=== PATIENT | female | born 1945 | race Caucasian/White ===

== ENCOUNTER 2023-03-04 14:15 | Outpatient (AMB) | payer MEDICARE, BC, SELFPAY ==
--- NOTE | 2023-03-04 14:27 | MHC.OFFVIS ---
Intake Vital Signs 03/04/23 14:28 Height 5 ft Weight 131 lb 2 oz BMI 25.6 BP 168/72 H Blood Pressure Location Lt brachial Position Sitting Respiration 16 Pulse 78 Pulse Source Pulse Oximeter Pulse Oximetry (%) 95 Oxygen Delivery Method Room Air Intake Visit Reasons: Neuropathy/Confirmed Allergies penicillamine Allergy (Unknown, Verified 03/04/23 14:25) hives Codeine Phosphate Allergy (Intermediate, Uncoded 03/04/23 14:25) Vomiting penicillin Allergy (Intermediate, Uncoded 03/04/23 14:25) hives HPI HPI Comments History of Present Illness Details Amanda is a very pleasant 77-year-old female who presented to the office today for evaluation management of her right lower extremity pain. Patient reports that she has been suffering with this ?nerve pain? for greater than 40 years. 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 She was also informed that there was nothing they could do to treat her injury or pain. Patient reports 10/10 pain of the right foot. She was recently started on gabapentin by her primary care doctor, dose was escalated approximately 1 week ago. She states that this does help with the nerve pain though it is still bothersome during the night. She reports recently, within the last couple of days, she has been experiencing some pain in her heel and ?in the bone ?of her right lower leg. She took diclofenac and the pain improved a little, her PCP sent a refill of this medication but pharmacy does not have it in stock. She would like this to be sent with a dose adjustment as the pharmacy said they have 50 mg tablets in stock. Patient has a chronic, nonhealing wound to medial aspect right lower leg. She has been prescribed Flagyl and Keflex without improvement of the wound. She has an appointment with vascular in 1 week and wound care in 1 week. She states recently the leg has become more swollen, red and now she has pain in the bone. In terms of muscle damage condition is described as burning, aching, stabbing, pulsing, throbbing, sharp, dull, sore, hurting, tingling. Condition is negatively impacting patient's ability to sleep normally and her perform activities of daily living. Review of Systems Const All systems reviewed & are unremarkable except as noted in HPI and below Physical Exam Vital Signs: Last Vital Signs Pulse 78 03/04/23 14:28 Resp 16 03/04/23 14:28 BP 168/72 H 03/04/23 14:28 Pulse Ox 95 03/04/23 14:28 Oxygen Delivery Method Room Air 03/04/23 14:28 BMI result Body Mass Index 25.6 General: awake, alert, oriented. Answers questions appropriately. Fully engaged in examination. HEENT: Normocephalic. Hearing intact. Cardiac: External chest normal in appearance. Respiratory: No cough, audible wheezing or stridor. Abdomen: without gross distension. MS: No obvious swelling or deformities. Able to transition from sit to stand unassisted. Ambulates with bilaterally normal heel strike and toe off Neurological: Oriented to person, place, time and situation. Thought process intact. Ambulates with cane Psychiatric: Appropriate mood and affect. Good judgment and insight. Skin Other: Wounds: wounds noted (+DP +PT pulses. +edema distal RLE. ) ulceration right lower leg with surrounding erythema Assessment & Plan Assessment & Plan (1) Non-healing wound of right lower extremity: Code(s): S81.801A - Unspecified open wound, right lower leg, initial encounter (2) Neuropathy: Code(s): G62.9 - Polyneuropathy, unspecified (3) Smoker: Code(s): F17.200 - Nicotine dependence, unspecified, uncomplicated Plan Amanda is a very pleasant 77-year-old female who presented to the office today for evaluation and management of her right lower extremity pain. Patient has been suffering with this pain for greater than 40 years, she attributed to an injury to the sciatic nerve on the right. Her symptoms are consistent with CRPS, notable for skin changes, discoloration, swelling, temperature changes, allodynia, changes to the nails on the right foot and muscle wasting. Patient has wound to medial aspect right lower leg, she was advised that interventional management of her pain cannot proceed until she has been evaluated by wound care and vascular. Wound needs to be healed before we can treat for neuropathy. CT right ankle with and without IV contrast ordered to evaluate wound as patient is now reporting pain to the bone. Diclofenac 50mg po daily as needed, do not take with any other NSAIDs All questions and concerns were answered during the visit today. Patient agrees with plan. Follow-up in the office after CT scan. Orders: Orders CT ankle RT wo/w IV con Today L08.9 - Local infection of the skin and subcutaneous tissue, unspecified, T14.8XXA - Other injury of unspecified body region, initial encounter Medications: New diclofenac sodium 50 mg PO DAILY PRN 30 tabs 3RF pain Coding Level of Care Code New Pt Level 4 (11999) Diagnoses Non-healing wound of right lower extremity S81.801A Neuropathy G62.9 Smoker F17.200
[2023-03-04 14:28] VITALS: BP 168/72; PULSE 78; RESP 16; O2SAT 95; BMI 25.6
== END 2023-03-04 15:05 | disposition home or self-care (01) ==
PROVIDERS: PCP Internal Medicine; Visit Provider Registered Nurse Emergency
DX: G62.9 Polyneuropathy, unspecified (principal); S81.801A Unspecified open wound, right lower leg, initial encounter; F17.200 Nicotine dependence, unspecified, uncomplicated
CPT/HCPCS: 99204

== ENCOUNTER → 2023-03-04 14:15 | Outpatient (BNVA) | payer MEDICARE, BC, SELFPAY | PROVIDERS: PCP Internal Medicine; Visit Provider Registered Nurse Emergency | DX: G62.9 Polyneuropathy, unspecified (principal); S81.801A Unspecified open wound, right lower leg, initial encounter; F17.200 Nicotine dependence, unspecified, uncomplicated | CPT/HCPCS: 99202 ==

== ENCOUNTER 2023-03-10 14:37 | Outpatient (AMB) | payer MEDICARE, BC, SELFPAY ==
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
== END 2023-03-10 15:38 | disposition home or self-care (01) ==
PROVIDERS: PCP Internal Medicine; Visit Provider Surgery Vascular Surgery
DX: I73.9 Peripheral vascular disease, unspecified (principal); I83.11 Varicose veins of right lower extremity with inflammation; G90.529 Complex regional pain syndrome I of unspecified lower limb
CPT/HCPCS: 99203

== ENCOUNTER → 2023-03-10 14:37 | Outpatient (BNVA) | payer MEDICARE, BC, SELFPAY | PROVIDERS: PCP Internal Medicine; Visit Provider Surgery Vascular Surgery | DX: I73.9 Peripheral vascular disease, unspecified (principal); I83.11 Varicose veins of right lower extremity with inflammation; G90.529 Complex regional pain syndrome I of unspecified lower limb | CPT/HCPCS: 99202 ==

== ENCOUNTER 2023-03-12 12:54 | Outpatient (RCR) | payer MEDICARE, BC, SELFPAY | END 2023-11-20 10:01 | disposition left against medical advice (07) | LOC: HO.WCC 12:54 | PROVIDERS: PCP Physician Assistant Medical; Visit Provider Surgery | DX: I87.331 Chronic venous hypertension (idiopathic) with ulcer and inflammation of right lower extremity (principal); L97.312 Non-pressure chronic ulcer of right ankle with fat layer exposed; L97.419 Non-pressure chronic ulcer of right heel and midfoot with unspecified severity; L97.822 Non-pressure chronic ulcer of other part of left lower leg with fat layer exposed; I70.233 Atherosclerosis of native arteries of right leg with ulceration of ankle; I70.234 Atherosclerosis of native arteries of right leg with ulceration of heel and midfoot; G90.09 Other idiopathic peripheral autonomic neuropathy; F17.210 Nicotine dependence, cigarettes, uncomplicated | CPT/HCPCS: 16020; 97602; 99212; 99213; 99215 ==

== ENCOUNTER 2023-04-22 12:45 | Outpatient (REF) | payer MEDICARE, BC, SELFPAY ==
--- NOTE | ~2023-04-22 | US_ITS ---
EXAMINATION: US VENOUS REFLUX/INSUFFICIENCY CLINICAL INFORMATION: Varicose veins of right lower extremity without inflammation. COMPARISON: Ultrasound 11/13/2016 TECHNIQUE: Right lower extremity venous insufficiency ultrasound was performed with velocity measurements. Color flow Doppler imaging was performed. FINDINGS: RIGHT SIDE: No evidence of DVT or venous reflux within the common femoral, mid femoral, or popliteal vein. GREATER SAPHENOUS VEIN: The right saphenofemoral junction measures 0.6cm. The reflux time is 0 ms. Proximal thigh measures 0.5cm. Reflux time is 0 ms. Mid thigh measures 0.4cm. Reflux time is 0 ms. Above-knee measures 0.2cm. Reflux time is 0 ms. At the knee measures 0.2cm. Reflux time is 0 ms. Below the knee measures 0.1cm. Reflux time is 0 ms. Mid calf measures 0.2cm. Reflux time is 0 ms. At the level of the ankle it measures 0.2cm. Reflux time is 0 ms. SMALL SAPHENOUS VEIN: The saphenopopliteal junction measures 0.5 cm. Reflux time is 0 ms. The upper right small saphenous vein measures 0.3 cm. Reflux time is 0 ms.. The lower small saphenous vein measures 0.3cm. Reflux time is 0 ms. 2 director insurance veins are visualized at the level of the mid and distal calf which measures 0.1 and 0.2 cm respectively. These do not demonstrate reflux. There is a 0.4 cm varicosity at the level of the distal thigh which does not demonstrate reflux. Mild soft tissue edema at the level of the midcalf. US/US venous duplex LE RT IMPRESSION: No evidence of right lower extremity venous reflux. There is a 4 mm varicosity at the level of the distal thigh without reflux.
--- NOTE | ~2023-04-22 | US_ITS ---
EXAMINATION: Noninvasive assessment of the right lower extremity with ARTERIAL DUPLEX CLINICAL INFORMATION: Peripheral vascular disease. Request to perform arterial ultrasound only, without BRENDEN, due to the patient's pain level and wound resulting in inability to tolerate a blood pressure cuff. TECHNIQUE: Duplex Doppler techniques with waveform analysis and measurement of velocities in the right common femoral, profunda femoris, superficial femoral, popliteal and tibial arteries were performed. The study was performed only at rest. COMPARISON: None FINDINGS: DIRECT DUPLEX DOPPLER FINDINGS: RIGHT LEG: Common femoral artery: 228 cm/s, phasicity: Triphasic Profunda femoris artery: 187 cm/s, phasicity: Monophasic Superficial femoral artery (proximal): 140 cm/s, phasicity: Monophasic Superficial femoral artery (mid): 234 cm/s, phasicity: Monophasic Superficial femoral artery (distal): 214 cm/s, phasicity: Monophasic. The distal superficial femoral artery is occluded just above the knee, with a large collateral supplying the proximal posterior tibial artery. Popliteal artery: 178 cm/s, phasicity: Monophasic Posterior tibial artery: 68.4 cm/s, phasicity: Monophasic Peroneal artery: Not visualized Anterior tibial artery: Not visualized The calf vessels were unable to be evaluated distally due to the patient's wound and bandaging. ANKLE-BRACHIAL INDEX: None performed due to patient's wound and bandaging. ANKLE PRESSURES: Not performed due to patient's wound and bandaging. ANKLE PVR WAVEFORMS: Not performed due to patient's wound and bandaging. A left Cárdenas cyst is present and measures 2.7 x 0.6 x 1.2 cm. US/US arterial duplex LE RT IMPRESSION: Limited evaluation of the calf and lower extremity due to patient's wound and bandaging. Within the limitations of this exam there is: 1. Occlusion of the distal left superficial femoral artery just above the knee, with a large collateral supplying the proximal posterior tibial artery. 2. At least moderate stenosis of the common femoral artery and mid superficial femoral artery. 3. Mild stenosis of the profunda artery and popliteal artery. 4. 2.7 cm left Cárdenas cyst.
== END 2023-04-22 12:46 | disposition home or self-care (01) ==
LOC: HO.US 12:45
PROVIDERS: PCP Internal Medicine; Visit Provider Surgery Vascular Surgery
DX: I83.11 Varicose veins of right lower extremity with inflammation (principal); I73.9 Peripheral vascular disease, unspecified
CPT/HCPCS: 93926; 93971

== ENCOUNTER 2023-05-04 15:15 | Outpatient (REF) | payer MEDICARE, BC, SELFPAY ==
--- NOTE | ~2023-05-04 | CT_ITS ---
EXAMINATION: CT ANKLE WITHOUT IV CONTRAST, RIGHT CLINICAL INFORMATION: Focal infection of the skin and subcutaneous tissues, unspecified. Wound infection. COMPARISON: None. TECHNIQUE: Contiguous axial CT images of the right ankle were obtained following the IV administration of 85 mL Omnipaque 350 contrast. Multi planar reformats were provided and reviewed. This CT examination was performed using dose optimization techniques as appropriate, variously including the following: *Automated exposure control *Adjustment of mA and/or kV according to patient size (this includes techniques or standardized protocols for targeted exams where dose is matched to indication/reason for exam; i.e. extremities or head) *Use of iterative reconstruction technique. DOSE: 140 mGycm. FINDINGS: Circumferential skin thickening with subcutaneous edema about the ankle. There appears to be wound dressing both medially and laterally. Findings likely indicate an acute on chronic cellulitis. No organized fluid collection or peripherally enhancing fluid collection to suggest abscess formation. No cortical erosion or periosteal reaction to suggest acute osteomyelitis. Very early osteomyelitis may be occult on CT examination. No exposed bone or wound extending to the bony cortex. No acute fracture or dislocation. The ankle mortise is maintained. Diffuse osteopenia. No concerning lytic or blastic osseous lesion. The visualized muscles and tendons are intact, however, evaluation significantly limited on CT examination. No large soft tissue mass or organized fluid collection. CT/CT ankle RT w IV con IMPRESSION: 1. Circumferential skin thickening and subcutaneous edema about the ankle with wound dressing both medially and laterally. Findings likely indicate an acute on chronic cellulitis. No organized fluid collection or peripherally enhancing fluid collection to suggest abscess formation. 2. No cortical erosion or periosteal reaction to suggest acute osteomyelitis. No exposed bone or wound extending to the bony cortex. Very early osteomyelitis may be occult on CT examination.
[2023-05-04] MEDS: iohexoL 350 MG/ML 75 ML INFUS..BTL 85 ML IV (16:10)
[2023-05-05 08:51] LABS: Creatinine POC 0.4 mg/dL (0.5-1.4); GFR POC > 60
== END 2023-05-04 15:16 | disposition home or self-care (01) ==
LOC: HO.CT 15:15
PROVIDERS: Registered Nurse Emergency; PCP Internal Medicine; Visit Provider Surgery Vascular Surgery
DX: I73.9 Peripheral vascular disease, unspecified (principal); L08.9 Local infection of the skin and subcutaneous tissue, unspecified; T14.8XXA Other injury of unspecified body region, initial encounter
CPT/HCPCS: 73701; 82565; Q9967

== ENCOUNTER 2023-05-07 11:11 | Outpatient (AMB) | payer MEDICARE, BC, SELFPAY ==
[2023-05-07 11:12] VITALS: BMI 25.6
--- NOTE | 2023-05-07 11:12 | A.OFFVIS_ITS ---
Intake Vital Signs 05/07/23 11:12 Height 5 ft Weight 131 lb BMI 25.6 Intake Visit Reasons: follow up US 04/22/23 & Arterial US 05/04/23 Intake Note: follow up ARterial US 05/04/23 and US 04/22/23 for Right LE non-healing ulcer on her ankle. States she has been going to wound care 1 x per week and changes her dressings daily. Accompanied by: Self / Same As Patient Allergies meperidine [From Demerol] Allergy (Severe, Verified 05/07/23 11:18) Confusion penicillamine Allergy (Unknown, Verified 03/10/23 14:43) hives Codeine Phosphate Allergy (Intermediate, Uncoded 03/04/23 14:25) Vomiting penicillin Allergy (Intermediate, Uncoded 03/04/23 14:25) hives HPI follow up US 04/22/23 & Arterial US 05/04/23 HPI Details Very complex and confusing 77-year-old female presents for follow-up with noninvasive arterial and venous testing. She has this chronic right lower extremity ulcer. In addition she does have a diagnosis of CRPS. She has pain attributed to this right sciatic nerve injury. She now presents for vascular evaluation. [facility] Social History (Updated 05/07/23 @ 11:21 by MORGAN Anne) Patient Tobacco Use Status: Current everyday Tobacco user Smoking Start Date: 05/07/1961 Review of Systems Const All systems reviewed & are unremarkable except as noted in HPI and below Reports no additional complaints ENT Reports Normal hearing present Card Denies chest pain, Denies chest pain at rest, Denies chest pain with activity and Denies pedal edema Resp Denies cough GI Denies abdominal pain Musc Denies abnormal gait, Denies muscle cramps and Denies radiating pain into limb Skin/Breast Denies skin ulcer and Denies wounds Neuro Reports Normal hearing present and Denies abnormal gait Psych Reports no additional complaints Physical Exam Vital Signs: BMI result Body Mass Index 25.6 Const General: cooperative, healthy appearing and comfortable Orientation/consciousness: oriented to person, oriented to place and oriented to time HEENT Head: Yes normal to inspection Neck Neck: Yes normal visual inspection Carotids: no bruits Chest Chest palpation & inspection: normal inspection of the chest Resp Effort & Inspection: normal respiratory effort and able to speak in complete sentences Auscultation: clear to auscultation bilaterally, no crackles, no rales, no rhonchi and no wheezes Cardio Other: Right side DP signal Rate: regular rate Rhythm: regular rhythm Heart sounds: S1 normal heart sound present and S2 normal heart sound present Bruits: no carotid bruits Peripheral pulses: Peripheral pulses 2+ throughout GI Inspection: Yes normal to inspection Skin Other: Right medial calf ulcer Wounds: no wounds Hair: normal Neuro General: oriented to person, oriented to place and oriented to time Cranial nerves: Yes CN's II-XII intact bilaterally and Yes Normal hearing present Cognition (Neuro): normal cognition Motor exam (neuro): 5/5 motor strength present throughout Extrem Other: venous exam: No significant superficial varicosities or spider telangiectasias, minimal edema General: No clubbing, No cyanosis and No edema Psych Appearance: grossly normal Mental Status: mental status grossly normal Speech and movement: Normal speech and movement present Results Reviewed Results Reviewed: Noninvasive arterial testing dated 04/22/2023 demonstrates monophasic flow SFA on down. Venous insufficiency testing dated 04/22/2023 demonstrates no evidence of reflux. Written report and images of both were reviewed Assessment & Plan Assessment & Plan (1) PAD (peripheral artery disease): Code(s): I73.9 - Peripheral vascular disease, unspecified Plan: She does have an element of peripheral vascular disease. The story is quite confusing in she relates a lot of issues to this nerve injury. I do believe the poor arterial flow is contributing to the nonhealing ulcer. She reports some sort of note nerve transection and states that she would not be able to tolerate such a procedure. I did inform her that her wound may not heal if we do not improve the arterial flow. She did demonstrated understanding of this. She did politely refused. I do think that if intervention is required she may require a tertiary care center due to her nerve issues. We wish her the best of luck. Thank you for allowing us to assist in her care. (2) Varicose veins of right lower extremity with inflammation: Code(s): I83.11 - Varicose veins of right lower extremity with inflammation Plan: No reflux continue conservative measures Coding Level of Care Code Est Pt Level 4 (98418) Diagnoses PAD (peripheral artery disease) I73.9 Varicose veins of right lower extremity with inflammation I83.11
== END 2023-05-07 11:30 | disposition home or self-care (01) ==
PROVIDERS: PCP Internal Medicine; Visit Provider Surgery Vascular Surgery
DX: I73.9 Peripheral vascular disease, unspecified (principal); I83.11 Varicose veins of right lower extremity with inflammation
CPT/HCPCS: 99213

== ENCOUNTER → 2023-05-07 11:11 | Outpatient (BNVA) | payer MEDICARE, BC, SELFPAY | PROVIDERS: PCP Internal Medicine; Visit Provider Surgery Vascular Surgery | DX: I73.9 Peripheral vascular disease, unspecified (principal); I83.11 Varicose veins of right lower extremity with inflammation | CPT/HCPCS: 99212 ==

== ENCOUNTER 2023-07-20 10:50 | Outpatient (REF) | payer MEDICARE, BC, SELFPAY | END 2023-07-20 10:51 | disposition home or self-care (01) | LOC: HO.CT 10:50 | PROVIDERS: PCP Physician Assistant Medical; Visit Provider Physician Assistant Medical | DX: Z13.89 Encounter for screening for other disorder (principal) ==

== ENCOUNTER 2023-09-10 13:09 | Outpatient (AMB) | payer MEDICARE, BC, SELFPAY ==
--- NOTE | 2023-09-10 13:13 | A.OFFVIS_ITS ---
Vital Signs 09/10/23 13:21 Height 5 ft Weight 120 lb 9.486 oz BMI 23.5 BP 120/58 L Blood Pressure Location Rt brachial Position Sitting Pulse 100 Pulse Source Pulse Oximeter Pulse Oximetry (%) 96 Oxygen Delivery Method Room Air Intake Visit Reasons: BL hand Pain ? OA/auto immune dz Intake Note: New pt presents today for consult, referred by PCP Fitz Espinoza Reports right leg and heel pain; has wound. Ongoing problems with leg/nerves for many years. 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 Accompanied by: Self / Same As Patient Allergies meperidine [From Demerol] Allergy (Severe, Verified 09/10/23 13:22) Confusion penicillamine Allergy (Unknown, Verified 09/10/23 13:22) hives Codeine Phosphate Allergy (Intermediate, Uncoded 09/10/23 13:22) Vomiting penicillin Allergy (Intermediate, Uncoded 09/10/23 13:22) hives Medication List - Last Reconciled 09/10/23 by Guy Tabor MD albuterol sulfate 90 mcg/actuation inhalation gabapentin 50 mg PO .3-4 times a day ibuprofen 800 mg PO TID HPI Comments Details: This is a 77-year-old female who presents for evaluation of elevated rheumatoid factor. And states that in her 30s she was having nerve damage in her right lower extremity. She was told multiple nerves were involved. She does not recall the etiology of this. Since then patient has had nerve damage in her right leg. She has learned how to walk despite nerve damage. She has numbness and weakness in the right lower extremity. She carries a diagnosis of CRPS of the right lower extremity. Patient states that last fall a cat scratched the medial aspect of her right leg, after she was having an itchy skin rash on her right leg and she developed a wound that was hard to heal. [facility] She was evaluated by vascular surgeon felt that there is likely a vascular insufficiency component to her wound. She also states that she developed an rash on her left ankle. She feels tightness of her left ankle. 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 She states that the the toes of her right foot are deforming. She has concerned about an inflammatory arthritis. Patient states that she lost 6 lb over the last year. She is unaware of any family history of an autoimmune rheumatic disease. She is unaware of any history of psoriasis, uveitis or inflammatory bowel disease. He denies any history of DVT/PE. Patient has known COPD, continues to smoke. [facility] Social History Alcohol intake: current Alcohol intake frequency: does not drink Patient Tobacco Use Status: Current everyday Tobacco user Smoking Start Date: 05/07/1961 Female Reproductive History Menstrual Total pregnancies: 4 Number of Living Children: 2 Ab spontaneous: 2 Review of Systems Const Denies fever(s), Reports weakness and Reports weight loss Musc Reports arthralgias and Reports muscle weakness Skin/Breast Reports pruritus, Reports rash, Reports skin ulcer and Reports wounds Neuro Reports weakness Physical Exam Vital Signs: Last Vital Signs Pulse 100 09/10/23 13:21 BP 120/58 L 09/10/23 13:21 Pulse Ox 96 09/10/23 13:21 Oxygen Delivery Method Room Air 09/10/23 13:21 BMI result Body Mass Index 23.5 Const General: cooperative, healthy appearing and comfortable Nutritional Appearance: average body habitus Limitations: no limitations HEENT Head: Yes normocephalic and Yes atraumatic Mouth: moist mucous membranes Resp Other: Slightly short of breath with talking Effort & Inspection: able to speak in complete sentences Auscultation: rhonchi Extrem Other: Erythema, swelling, of right foot and toes, mildly cool to touch compared to left foot Right toe deformity of right foot toes There is no active synovitis Normal nailfold capillaroscopy Results Reviewed Results Reviewed: Labs 05/2023 ESR 28 RF 23 (<14) Uric acid 4.2 ASOT 173 normal ES screen/ES/ASMA all negative Assessment & Plan Assessment & Plan (1) Rheumatoid factor positive: Code(s): R76.8 - Other specified abnormal immunological findings in serum Category: Medical Plan: This is a 77-year-old female with history of CRPS affecting the right lower extremity, history of difficult to heal wound of right leg, peripheral vascular disease who presents for evaluation of a positive rheumatoid factor. This was in the setting of polyarthralgias. On exam I do not see any swollen joints. She has evidence of CRPS affecting the right lower extremity. Will order comprehensive serology to screen for underlying autoimmune rheumatic disease. Follow-up in 4-5 weeks Plan I spent 48 minutes reviewing patient's chart, evaluating patient, ordering diagnostic workup, counseling patient and documenting in the chart Orders: Orders Complete Blood Count Auto Diff Today M25.50 - Pain in unspecified joint Immunofixation Pnl, Serum Today M25.50 - Pain in unspecified joint Protein Electrophoresis, Serum Today M25.50 - Pain in unspecified joint T Spot TB Today Z11.7 - Encounter for testing for latent tuberculosis infection ANCA Vasculitides Today I77.6 - Arteritis, unspecified Beta-2 Glycoprotein Antibody Today D68.61 - Antiphospholipid syndrome Cardiolipin Antibodies Today D68.61 - Antiphospholipid syndrome Lupus Anticoagulant Panel Today D68.61 - Antiphospholipid syndrome Comprehensive Met. Panel Today M25.50 - Pain in unspecified joint C Reactive Protein Today M25.50 - Pain in unspecified joint Erythrocyte Sedimentation Rate Today M25.50 - Pain in unspecified joint Hepatitis A,B,C Profile Today Z11.59 - Encounter for screening for other viral diseases HLA B27 Today M45.9 - Ankylosing spondylitis of unspecified sites in spine Rheumatoid Factor Today M25.50 - Pain in unspecified joint Cyclic Citrullinated Peptide Today M25.50 - Pain in unspecified joint Coding Level of Care Code New Pt Level 4 (65383) Diagnoses Rheumatoid factor positive R76.8
[2023-09-10 13:21] VITALS: BP 120/58; PULSE 100; O2SAT 96; BMI 23.5
== END 2023-09-10 13:53 | disposition home or self-care (01) ==
PROVIDERS: PCP Physician Assistant Medical; Visit Provider Student in an Organized Health Care Education/Training Program
DX: R76.8 Other specified abnormal immunological findings in serum (principal)
CPT/HCPCS: 99204

== ENCOUNTER → 2023-09-10 13:09 | Outpatient (BNVA) | payer MEDICARE, BC, SELFPAY | PROVIDERS: PCP Physician Assistant Medical; Visit Provider Student in an Organized Health Care Education/Training Program | DX: R76.8 Other specified abnormal immunological findings in serum (principal) | CPT/HCPCS: 99202 ==

== ENCOUNTER 2023-09-14 11:34 | Outpatient (REF) | payer MEDICARE, BC, SELFPAY ==
[2023-09-14 12:01] LABS: MANUAL DIFF FLAG NO
[2023-09-14 12:24] LABS: Eosinophils Absolute Auto 0.1 X10*3/uL (0.0-0.4); Eosinophils Percent Auto 2.1 % (0-4); Hematocrit 43.7 % (37.0-47.0); Hemoglobin 13.5 g/dl (12.0-16.0); Imm Gran Abs Auto 0.01 X10*3/uL (0.00-0.03); Imm Gran Pct Auto 0.3 % (0.0-0.4); Lymphocytes Absolute Auto 1.5 X10*3/uL (1.2-4.9); Lymphocytes Percent Auto 39.4 % (20-40); Mean Corpuscular HGB Conc 30.9 g/dl (31.0-35.0); Mean Corpuscular Hemoglobin 24.9 pg (27.0-33.0); Mean Corpuscular Volume 80.5 fL (80.0-98.0); Mean Platelet Volume 9.9 fL (9.4-12.3); Monocytes Absolute Auto 0.3 X10*3/uL (0.1-1.2); Monocytes Percent Auto 7.5 % (2-11); Neutrophils Absolute Auto 1.9 x10*3/uL (2.0-8.3); Neutrophils Percent Auto 49.7 % (45-73); Platelet Count 178 X10*3/uL (160-400); Red Blood Count 5.43 X10*6/uL (4.20-5.50); Red Cell Distribution Width 17.1 % (11.0-16.0); White Blood Count 3.9 X10*3/uL (4.8-10.8)
[2023-09-14 12:59] LABS: Alanine Aminotransferase 21 U/L (0-31); Albumin Level 4.3 g/dL (3.5-5.0); Alkaline Phosphatase 84 U/L (39-117); Anion Gap 11 (12-20); Aspartate Amino Transferase 17 U/L (5-31); Bilirubin Total 0.4 mg/dL (0.0-1.0); Blood Urea Nitrogen 15 mg/dL (9-16); Calcium 9.8 mg/dL (8.4-10.2); Carbon Dioxide 30 mmol/L (22-29); Chloride 102 mmol/L (96-108); Estimated Glomerular Filt Rate > 60; Glucose Random 94 mg/dL (60-115); Sodium 139 mmol/L (135-145); Total Protein 7.3 g/dL (6.5-8.0)
[2023-09-14 13:04] LABS: Erythrocyte Sedimentation Rate 7 MM/HR (0-20)
[2023-09-14 13:16] LABS: HBS Num1 0.76 mIU/mL (0-7.99); HBc Num1 0.08 S/CO (0.00-0.79); HBsAGNum1 0.23 S/CO (0.00-0.99); Hepatitis A Antibody IgM 0.17 Index (0-0.79); Hepatitis B Core Antibody Nonreactive (Nonreactive); Hepatitis B Surface Antigen Negative (Negative); ~HepC Num1 0.07 S/CO (0.00-0.79); ~Hepatitis A Antibody IgM Nonreactive (Nonreactive); ~Hepatitis B Surface Antibody NONREACTIVE (Nonreactive); ~Hepatitis C Antibody Nonreactive (Nonreactive)
[2023-09-15 19:48] LABS: Myeloperoxidase Antibody <1.0 AI; Proteinase 3 PR3 Antibodies <1.0 AI
[2023-09-15 20:23] LABS: Cardiolipin IgG Ab <2.0 GPL-U/mL; Cardiolipin IgM Ab <2.0 MPL-U/mL
[2023-09-15 22:57] LABS: Prot Elec - Albumin 4.2 g/dL (3.8-4.8); Prot Elec - Alpha1 0.4 g/dL (0.2-0.3); Prot Elec - Alpha2 0.8 g/dL (0.5-0.9); Prot Elec - Beta 1 0.5 g/dL (0.4-0.6); Prot Elec - Beta 2 0.4 g/dL (0.2-0.5); Prot Elec - Gamma 0.8 g/dL (0.8-1.7)
[2023-09-16 14:33] LABS: Cyclic Citrullinated Peptide <16 UNITS
[2023-09-16 16:42] LABS: IgA 178 mg/dL (70-320); IgG 768 mg/dL (600-1540); IgM 86 mg/dL (50-300)
[2023-09-16 16:49] LABS: HLA B27 Negative (Negative)
[2023-09-17 01:19] LABS: TS Negative Control Passed; TS Panel A 0; TS Panel B 0; TS Positive Control Passed; TSpotTB Negative (Negative)
[2023-09-20 11:49] LABS: Beta-2 Glycoprotein IgA 21.4 U/mL (<20.0); Beta-2 Glycoprotein IgG <2.0 U/mL (<20.0); Beta-2 Glycoprotein IgM <2.0 U/mL (<20.0)
[2023-09-21 20:53] LABS: PTT (LAC) Screen 39 sec (<=40)
== END 2023-09-14 11:35 | disposition home or self-care (01) ==
LOC: HO.10HDL 11:34
PROVIDERS: Visit Provider Student in an Organized Health Care Education/Training Program
DX: M25.50 Pain in unspecified joint (principal); Z11.7 Encounter for testing for latent tuberculosis infection; Z11.59 Encounter for screening for other viral diseases; M45.9 Ankylosing spondylitis of unspecified sites in spine; D68.61 Antiphospholipid syndrome; I77.6 Arteritis, unspecified; Z72.89 Other problems related to lifestyle
CPT/HCPCS: 36415; 80053; 82784; 84165; 85025; 85597; 85598; 85613; 85652; 85730; 86021; 86140; 86146; 86147; 86200; 86334; 86431; 86481; 86704; 86706; 86709; 86803; 86812; 87340

== ENCOUNTER 2023-10-26 12:27 | Outpatient (AMB) | payer MEDICARE, BC, SELFPAY ==
--- NOTE | 2023-10-26 12:38 | A.OFFVIS_ITS ---
Vital Signs 10/26/23 12:39 Height 5 ft Weight 120 lb 13.013 oz BMI 23.6 BP 122/72 Blood Pressure Location Lt brachial Position Sitting Pulse 92 Pulse Source Pulse Oximeter Pulse Oximetry (%) 96 Oxygen Delivery Method Room Air Intake Visit Reasons: +RF/CM Intake Note: Patient last seen on 09/10/23 present today for follow up and test results. Allergies meperidine [From Demerol] Allergy (Severe, Verified 10/26/23 12:40) Confusion penicillamine Allergy (Unknown, Verified 10/26/23 12:40) hives Codeine Phosphate Allergy (Intermediate, Uncoded 10/26/23 12:40) Vomiting penicillin Allergy (Intermediate, Uncoded 10/26/23 12:40) hives Medication List - Last Reconciled 10/26/23 by Guy Tabor MD albuterol sulfate 90 mcg/actuation inhalation gabapentin 50 mg PO .3-4 times a day ibuprofen 800 mg PO TID HPI Comments Details: Patient returns for follow-up after completion of her diagnostic workup. Initial history: This is a 77-year-old female who presents for evaluation of elevated rheumatoid factor. And states that in her 30s she was having nerve damage in her right lower extremity. She was told multiple nerves were involved. She does not recall the etiology of this. Since then patient has had nerve damage in her right leg. She has learned how to walk despite nerve damage. She has numbness and weakness in the right lower extremity. She carries a diagnosis of CRPS of the right lower extremity. Patient states that last fall a cat scratched the medial aspect of her right leg, after she was having an itchy skin rash on her right leg and she developed a wound that was hard to heal. [facility] She was evaluated by vascular surgeon felt that there is likely a vascular insufficiency component to her wound. She also states that she developed an rash on her left ankle. She feels tightness of her left ankle. 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 She states that the the toes of her right foot are deforming. She has concerned about an inflammatory arthritis. Patient states that she lost 6 lb over the last year. She is unaware of any family history of an autoimmune rheumatic disease. She is unaware of any history of psoriasis, uveitis or inflammatory bowel disease. He denies any history of DVT/PE. Patient has known COPD, continues to smoke. [facility] Social History Alcohol intake: current Alcohol intake frequency: does not drink Patient Tobacco Use Status: Current everyday Tobacco user Smoking Start Date: 05/07/1961 Female Reproductive History Menstrual Total pregnancies: 4 Number of Living Children: 2 Ab spontaneous: 2 Review of Systems Const Denies fever(s) and Reports weight loss Musc Reports arthralgias and Reports muscle weakness Skin/Breast Reports pruritus, Reports rash, Reports skin ulcer and Reports wounds Physical Exam Vital Signs: Last Vital Signs Pulse 92 10/26/23 12:39 BP 122/72 10/26/23 12:39 Pulse Ox 96 10/26/23 12:39 Oxygen Delivery Method Room Air 10/26/23 12:39 BMI result Body Mass Index 23.6 Const General: cooperative, healthy appearing and comfortable Nutritional Appearance: average body habitus Limitations: no limitations HEENT Head: Yes normocephalic and Yes atraumatic Mouth: moist mucous membranes Resp Other: Slightly short of breath with talking Effort & Inspection: able to speak in complete sentences Auscultation: rhonchi Extrem Other: Erythema, swelling, of right foot and toes, mildly cool to touch compared to left foot Right toe deformity of right foot toes There is no active synovitis Normal nailfold capillaroscopy Results Reviewed Results Reviewed: Labs 05/2023 ESR 28 Laboratory Tests 09/14/23 09/14/23 12:00 Unknown Rheumatoid Factor 13.0 Cycl Citrul Peptide IgG <16 Proteinase 3 (PR3) Ab <1.0 Myeloperoxidase Ab <1.0 Beta-2-GPI IgG Ab <2.0 Beta-2-GPI IgA Ab 21.4 H Beta-2-GPI IgM Ab <2.0 Anti-Cardiolipin IgG Ab <2.0 Anti-Cardiolipin IgM Ab <2.0 HLA-B27 Negative RF 23 (<14) Uric acid 4.2 ASOT 173 normal ES screen/ES/ASMA all negative Assessment & Plan Assessment & Plan (1) Rheumatoid factor positive: Code(s): R76.8 - Other specified abnormal immunological findings in serum Category: Medical Plan: This is a 77-year-old female with history of CRPS affecting the right lower extremity, history of difficult to heal wound of right leg, peripheral vascular disease who presents for evaluation of a positive rheumatoid factor. This was in the setting of polyarthralgias. On exam I do not see any active of active synovitis. Her repeat RF factor is negative as well as other serologies, she has a borderline positive beta 2 glycoprotein IgA antibody which is of unclear significance Follow-up with other providers Plan I spent 14 minutes reviewing patient's chart, evaluating patient, counseling patient and documenting in the chart Coding Level of Care Code Est Pt Level 3 (53386) Diagnoses Rheumatoid factor positive R76.8
[2023-10-26 12:39] VITALS: BP 122/72; PULSE 92; O2SAT 96; BMI 23.6
== END 2023-10-26 12:50 | disposition home or self-care (01) ==
PROVIDERS: PCP Physician Assistant Medical; Visit Provider Student in an Organized Health Care Education/Training Program
DX: R76.8 Other specified abnormal immunological findings in serum (principal)
CPT/HCPCS: 99213

== ENCOUNTER → 2023-10-26 12:27 | Outpatient (BNVA) | payer MEDICARE, BC, SELFPAY | PROVIDERS: PCP Physician Assistant Medical; Visit Provider Student in an Organized Health Care Education/Training Program | DX: R76.8 Other specified abnormal immunological findings in serum (principal) | CPT/HCPCS: 99212 ==

== ENCOUNTER 2024-04-07 15:59 | Inpatient (IN) | payer MEDICARE, BC, SELFPAY ==
--- NOTE | ~2024-04-07 | US_ITS ---
EXAMINATION: US NONINVASIVE ASSESSMENT OF THE LEFT LOWER EXTREMITY WITH ARTERIAL DUPLEX AND ANKLE BRACHIAL INDICES (ABIS) CLINICAL INFORMATION: Pain. History of peripheral arterial disease. COMPARISON: None available. TECHNIQUE: Duplex Doppler techniques with waveform analysis and measurement of velocities in the common femoral, profunda femoris, superficial femoral, popliteal and tibial arteries were performed. In addition, ankle pulse volume recordings, ankle pressure measurements and ankle brachial indices were obtained of the right lower extremity arterial system. The study was performed only at rest. FINDINGS: NONINVASIVE ASSESSMENT OF THE ARTERIES OF BILATERAL LOWER EXTREMITIES WITH ABIs: LEFT LEG: Ankle-brachial index: Not performed. BRENDEN Reference: 0.9 - 1.4 = normal - no significant arterial disease 0.7 - 0.89 = mild peripheral arterial disease 0.51 - 0.69 = moderate peripheral arterial disease 0.50 = severe peripheral arterial disease LEFT LOWER EXTREMITY DUPLEX ULTRASOUND: Common femoral artery: 83 cm/s. Biphasic waveform. Profunda femoris artery: 138 cm/s. Biphasic waveform. Superficial femoral artery (proximal): 92 cm/s. Biphasic waveform. Superficial femoral artery (mid): 140 cm/s. Biphasic waveform. Superficial femoral artery (distal): 84 cm/s. Biphasic waveform. Popliteal artery: 65 cm/s biphasic waveform. Posterior tibial artery: 27 cm/s monophasic waveform. Dorsal pedis artery: 15 cm/s. Monophasic waveform. US/US arterial duplex LE LT IMPRESSION: Severe inflow disease below the knee. Electronically signed by: Elias Mao MD 04/11/2024 08:21 AM [facility]
--- NOTE | ~2024-04-07 | US_ITS ---
CLINICAL HISTORY: pain Arterial duplex ultrasound right lower extremity Comparison: 04/22/2023 Findings: Examination is limited in that patient was unable to complete the examination with the calf distally not imaged on the current study. Continuous, pulsatile flow with monophasic waveforms from common femoral arteries through the posterior tibial and dorsalis pedis arteries. No focal stenosis, aneurysm or occlusion identified. Velocities are within normal range. IMPRESSION: No hemodynamically significant stenoses on right lower extremity arterial duplex. This document has been electronically signed by: Drew Cheung MD on 04/07/2024 18:54:00
--- NOTE | ~2024-04-07 | XR_ITS ---
CLINICAL HISTORY: wound 2 view right tibia-fibula Comparison: None Findings No fractures or dislocations. No joint effusion. No significant arthritic change. No radiopaque foreign body. There is regional arterial calcification. IMPRESSION: 1. Normal right tibia-fibula This document has been electronically signed by: Drew Cheung MD on 04/07/2024 20:13:37
--- NOTE | ~2024-04-07 | US_ITS ---
CLINICAL HISTORY: pain Venous duplex ultrasound right lower extremity Comparison: US/SR - US VENOUS DUPLEX LE RT - 04/22/2023 01:11 PM EST Findings: The visualized deep veins are fully compressible with normal Doppler color flow and spectral tracings. No popliteal cyst. IMPRESSION: 1. Negative for right lower extremity deep vein thrombosis. This document has been electronically signed by: Drew Cheung MD on 04/07/2024 18:59:50
[2024-04-07 16:37] VITALS: BP 131/98; PULSE 87; RESP 18; TEMP 36.6; O2SAT 95; BMI 23.4
--- NOTE | 2024-04-07 16:39 | ED_ITS ---
HPI - General Adult General Chief complaint: General Medical Stated complaint: ? right lower leg infection/rash Time Seen by Provider: 04/07/24 17:27 Source: patient, RN notes reviewed and old records reviewed Mode of arrival: ambulatory Limitations: no limitations History of Present Illness ED Provider: Yamel HOWELL narrative: 78-year-old female with past medical history significant for peripheral artery disease due to tobacco dependence followed by Dr. Butcher presents for evaluation of right leg pain and swelling. Patient reports that she was initially scratched by a cat about 1 year ago. She reports that her right leg has been progressively worsening with redness and pain for the last year. She reports about 1 month ago her symptoms acutely worsened with significantly more swelling, more pain and the leg is now weeping clear fluid. She saw her PCP and reports that she was given a week's worth of antibiotics which she completed and feels as though they made her symptoms worse She does follow with Dr. Butcher for peripheral arterial disease She has not had any procedures done to the right lower extremity. Denies any history of DVT or PE Related Data Home Medications ?Medication ?Instructions ?Recorded ?Confirmed albuterol sulfate 90 mcg/actuation inhalation 03/03/23 10/26/23 aerosol inhaler ibuprofen 800 mg tablet 800 mg PO TID 03/03/23 10/26/23 gabapentin 100 mg capsule 50 mg PO .3-4 times a day 09/10/23 10/26/23 Allergies Allergy/AdvReac Type Severity Reaction Status Date / Time meperidine [From Demerol] Allergy Severe Confusion Verified 04/07/24 16:40 penicillamine Allergy Unknown hives Verified 04/07/24 16:40 Codeine Phosphate Allergy Intermediate Vomiting Uncoded 10/26/23 12:40 penicillin Allergy Intermediate hives Uncoded 10/26/23 12:40 Review of Systems 2 Constitutional: Constitutional: Denies body ache(s), Denies chills, Denies fever(s) and Denies headache(s) ENT: Denies vertigo, Denies dizziness and Denies headache(s) Cardiovascular: Cardiovascular: Denies chest pain and Denies dyspnea Respiratory: Respiratory: Denies cough and Denies dyspnea Gastrointestinal: Gastrointestinal: Denies abdominal pain, Denies nausea and Denies vomiting Musculoskeletal: Musculoskeletal: Denies back pain, Denies arthralgias, Denies joint swelling and Denies limited range of motion Integumentary/Breasts: Skin/Breast: Reports erythema, Reports rash and Reports wounds Neurologic: Denies vertigo, Denies dizziness and Denies headache(s) Psychiatric: Psychiatric: Denies anxiety PMFSH Social History Social History Alcohol intake: current Alcohol intake frequency: does not drink Patient Tobacco Use Status: Current everyday Tobacco user Smoking Start Date: 05/07/1961 Smoked in Last 30 Days: Yes Advance Directives: No Advance Directives Information Provided: No Do you have a plan to hurt others: No Plan Physical Exam ED Vital Signs: Vital Signs - 24 hr 04/07/24 16:37 Temperature 97.9 F Pulse Rate 87 Respiratory Rate 18 Blood Pressure 131/98 H Pulse Oximetry 95 Oxygen Delivery Method Room Air BMI result Body Mass Index 23.4 Const General: healthy appearing, comfortable, no acute distress, alert and awake Nutritional Appearance: well nourished Orientation/consciousness: patient oriented x3 HENMT Head: Yes normocephalic and Yes atraumatic Eyes Eyelids: Yes eyelids normal Conjunctivae: conjunctivae normal Sclerae: sclerae normal Corneas: corneas normal Pupils: Equal, round and reactive pupils present EOM: EOMs intact bilaterally Neck Neck: Yes full ROM Resp Effort & Inspection: normal respiratory effort, able to speak in complete sentences and not labored Cardio Rate: regular rate Rhythm: regular rhythm Skin Other: Patient has an erythematous edematous right lower extremity from the ankle up to just below the knee. There are open wounds draining clear fluid. Neuro General: patient oriented x3 Cranial nerves: Yes Equal, round and reactive pupils present and Yes Bilaterally intact EOM present Cognition (Neuro): normal cognition Extrem Other: Moving all extremities well without any obvious deformities Course Course Course Narrative: This is a rapid medical exam performed by Mari Cruz NP: Additional HPI, ROS, PE not included below will be deferred to primary provider. Patient is a 78-year-old female with history of PAD, CRPS, smoker, nonhealing wound of right lower extremity presenting to the ED with complaint of worsening infection to right lower leg. States she was scratched by her cat around 1 year ago, did not take abx for 6-8 mos after initial scratch. Recently finished course of keflex. States infection is worsening, leaking large amounts of fluid, now has rash to her leg. Has been seen at wound center previously. Plan: labs including cultures, EKG Medications Administered Discontinued Medications Generic Name Dose Route Start Last Admin Trade Name Dung PRN Reason Stop Dose Admin Morphine Sulfate 4 mg 04/07/24 19:15 04/07/24 19:21 Morphine Sulfate 4 Mg/Ml Cartridge IVPUSH 04/07/24 19:16 4 mg ONCE ONE Administration Protocol Ondansetron HCl 4 mg 04/07/24 19:15 04/07/24 19:21 Ondansetron Hcl 4 Mg/2 Ml Vial IVPUSH 04/07/24 19:16 4 mg ONCE ONE Administration Medical Decision Making Medical Decision Making [facility] Narrative: 70-year-old female presents for evaluation of right lower extremity pain, swelling and redness. 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 I ordered labs including blood cultures, ultrasound of the artery and venous system on the right lower extremity. There is a high suspicion for a chronic cellulitis versus arterial insufficiency. Differential Diagnosis Differential Diagnoses: The differential diagnosis associated with the presentation includes Cellulitis Arterial insufficiency Ischemic limb less likely DVT Admission/Observation Consideration of admission/observation: Escalation of care including admission/observation considered Lab Data [facility] Lab Attestation statement: I reviewed the patient's lab results. No leukocytosis or anemia. Normal platelet count. No significant electrolyte abnormalities. Elevated inflammatory markers 04/07/24 17:38 04/07/24 17:38 Labs: Lab Results 04/07/24 Range/Units 17:38 WBC 9.8 (4.8-10.8) X10*3/uL RBC 5.57 H (4.20-5.50) X10*6/uL Hgb 13.8 (12.0-16.0) g/dl Hct 44.1 (37.0-47.0) % MCV 79.2 L (80.0-98.0) fL MCH 24.8 L (27.0-33.0) pg MCHC 31.3 (31.0-35.0) g/dl RDW 15.8 (11.0-16.0) % Plt Count 336 D (160-400) X10*3/uL MPV 9.1 L (9.4-12.3) fL Immature Gran % (Auto) 0.3 (0.0-0.4) % Neut % (Auto) 74.8 H (45-73) % Lymph % (Auto) 17.9 L (20-40) % Pepin % (Auto) 5.6 (2-11) % Eos % (Auto) 1.0 (0-4) % Baso % (Auto) 0.4 (0-2) % Lymph # (Auto) 1.8 (1.2-4.9) X10*3/uL Pepin # (Auto) 0.6 (0.1-1.2) X10*3/uL Eos # (Auto) 0.1 (0.0-0.4) X10*3/uL Baso # (Auto) 0.0 (0.0-0.2) X10*3/uL Abs Immat Gran (auto) 0.03 (0.00-0.03) X10*3/uL Absolute Neuts (auto) 7.3 (2.0-8.3) x10*3/uL Absolute Nucleated RBC 0.000 (0.0-0.012) X10*3/uL Nucleated RBC % (auto) 0.0 (0.0-0.2) /100WBC ESR 26 H (0-20) MM/HR PT 12.1 (10.9-12.4) SEC INR 1.0 (0.9-1.1) Sodium 139 (135-145) mmol/L Potassium 3.7 (3.3-5.1) mmol/L Chloride 105 (96-108) mmol/L Carbon Dioxide 25 (22-29) mmol/L Anion Gap 13 (12-20) BUN 23 H (9-16) mg/dL Creatinine 0.67 (0.5-1.4) mg/dL Estim Creat Clear Calc 49.6 Estimated GFR > 60 Random Glucose 96 (60-115) mg/dL Lactic Acid 1.3 (0.5-2.0) mmol/L Calcium 9.3 (8.4-10.2) mg/dL Total Bilirubin 0.3 (0.0-1.0) mg/dL AST 18 (5-31) U/L ALT 12 (0-31) U/L Alkaline Phosphatase 96 (39-117) U/L C-Reactive Protein 2.08 H (< or = 0.50) mg/dL Total Protein 7.7 (6.5-8.0) g/dL Albumin 4.0 (3.5-5.0) g/dL Hold Green Top See Note Independent Interpretation I performed an independent interpretation of an: Ultrasound Radiology Impression Discussion of test interpretation with radiology: I have reviewed the radiologist's reading. Radiologist Impression: Findings: Examination is limited in that patient was unable to complete the examination with the calf distally not imaged on the current study. Continuous, pulsatile flow with monophasic waveforms from common femoral arteries through the posterior tibial and dorsalis pedis arteries. No focal stenosis, aneurysm or occlusion identified. Velocities are within normal range. IMPRESSION: No hemodynamically significant stenoses on right lower extremity arterial duplex. This document has been electronically signed by: Drew Cheung MD on 04/07/2024 18:54:00 Findings: The visualized deep veins are fully compressible with normal Doppler color flow and spectral tracings. No popliteal cyst. IMPRESSION: 1. Negative for right lower extremity deep vein thrombosis. This document has been electronically signed by: Drew Cheung MD on 04/07/2024 18:59:50 Discharge Plan Discharge Clinical Impression: Non-healing wound of right lower extremity Patient Disposition: Still a Patient Prescriptions: No Action ibuprofen 800 mg tablet 800 mg PO TID albuterol sulfate 90 mcg/actuation HFA aerosol inhaler inhalation gabapentin 100 mg capsule 50 mg PO .3-4 times a day Print Language: Venezuelan
--- NOTE | 2024-04-07 16:43 | ECG_ITS ---
Test Reason : LEG WOUND RASH Blood Pressure : */* mmHG Vent. Rate : 91 BPM Atrial Rate : 91 BPM P-R Int : 112 ms QRS Dur : 80 ms QT Int : 336 ms P-R-T Axes : 68 70 51 degrees QTcB Int : 413 ms Normal sinus rhythm Normal ECG No previous ECGs available Referred By: Marcelle Cruz Electronically Signed By: BETSEY JAMES
--- NOTE | 2024-04-07 17:42 | PC.NURSE ---
patient brought back to Ed 21 from waiting room. patient presents with right leg swelling, redness, and weeping. patient self wrapped leg in pink fuzzy blanket with hairties. this was removed by this RN, patient in stretcher, leg positioned with pillow to comfort. patient states the leg wound started one year ago with a cat scratch which she had treatment for. patient states she saw wound care multiple times. patient states the last month the leg has gotten worse, a rash appeared, there is skin breakdown on lower leg. patient has popliteal pulse, will not tolerate RN touching foot for pedal pulse. patient toe nails show +INGOT STRIPPER. patient noted to have rash going up right leg now. #20 G IV placed in the left wrist. cultures drawn and labs drawn.
[2024-04-07 17:46] LABS: MANUAL DIFF FLAG NO
[2024-04-07 17:48] LABS: Basophils Percent Auto 0.4 % (0-2); Eosinophils Absolute Auto 0.1 X10*3/uL (0.0-0.4); Hematocrit 44.1 % (37.0-47.0); Hemoglobin 13.8 g/dl (12.0-16.0); Imm Gran Abs Auto 0.03 X10*3/uL (0.00-0.03); Imm Gran Pct Auto 0.3 % (0.0-0.4); Lymphocytes Absolute Auto 1.8 X10*3/uL (1.2-4.9); Lymphocytes Percent Auto 17.9 % (20-40); Mean Corpuscular HGB Conc 31.3 g/dl (31.0-35.0); Mean Corpuscular Hemoglobin 24.8 pg (27.0-33.0); Mean Corpuscular Volume 79.2 fL (80.0-98.0); Mean Platelet Volume 9.1 fL (9.4-12.3); Monocytes Absolute Auto 0.6 X10*3/uL (0.1-1.2); Monocytes Percent Auto 5.6 % (2-11); Neutrophils Absolute Auto 7.3 x10*3/uL (2.0-8.3); Neutrophils Percent Auto 74.8 % (45-73); Platelet Count 336 X10*3/uL (160-400); Red Blood Count 5.57 X10*6/uL (4.20-5.50); Red Cell Distribution Width 15.8 % (11.0-16.0); White Blood Count 9.8 X10*3/uL (4.8-10.8)
[2024-04-07 17:58] LABS: Prothrombin Time 12.1 SEC (10.9-12.4)
[2024-04-07 18:17] LABS: Lactic Acid 1.3 mmol/L (0.5-2.0)
[2024-04-07 18:18] LABS: Alanine Aminotransferase 12 U/L (0-31); Alkaline Phosphatase 96 U/L (39-117); Anion Gap 13 (12-20); Aspartate Amino Transferase 18 U/L (5-31); Bilirubin Total 0.3 mg/dL (0.0-1.0); Blood Urea Nitrogen 23 mg/dL (9-16); C Reactive Protein 2.08 mg/dL (< or = 0.50); Calcium 9.3 mg/dL (8.4-10.2); Carbon Dioxide 25 mmol/L (22-29); Chloride 105 mmol/L (96-108); Creatinine Clr Calc Pharmacy 49.6; Estimated Glomerular Filt Rate > 60; Glucose Random 96 mg/dL (60-115); Potassium 3.7 mmol/L (3.3-5.1); Sodium 139 mmol/L (135-145); Total Protein 7.7 g/dL (6.5-8.0)
[2024-04-07 19:03] LABS: Erythrocyte Sedimentation Rate 26 MM/HR (0-20)
[2024-04-07] MEDS: Morphine Sulfate 4 MG/ML CARTRIDGE IVPUSH (19:21)
[2024-04-07] MEDS: ondansetron HCL 4 MG/2 ML VIAL IVPUSH (19:21)
--- NOTE | 2024-04-07 19:45 | PC.NURSE ---
pt medicated with pain meds, dressing to RLE done, vaseline gauze and wet to dry dressing. pt tolerated well.
[2024-04-07 20:09] VITALS: BP 132/65; PULSE 90; RESP 20; TEMP 36.8; O2SAT 95
[2024-04-07] MEDS: cefTRIAXone sodium 1 GM VIAL IVPUSH (20:19)
[2024-04-07] MEDS: vancomycin HCL 1,250 MG in 0.9 % Sodium Chloride 250 ML 166.67 MG IV (20:19)
--- NOTE | 2024-04-07 20:21 | P.HPHOSP_ITS ---
History of Present Illness Date of Service: 04/07/24 Attending physician on admission: Aida Mandel Chief Complaint: Worsening right lower leg wound Pt is a 78-year-old female with a PMH significant for?peripheral vascular disease, CRPS of right lower extremity, and chronic right lower extremity wound who presents to the ED with?worsening right lower extremity pain, erythema, and clear discharge x1 month. Pt reports over 40 years ago she experienced nerve damage in her right lower extremity and since then has chronic numbness, tingling, weakness, and pain in right lower extremity. Proximally 1-1/2 years ago pt was scratched by her cat on the medial aspect of her right leg which then developed a wound with surrounding rash that was difficult to heal. [facility] but has not followed with them for many months. Also presented to Dr. Butcher in vascular surgery who feels for arterial flow is contributing to patient's nonhealing ulcer. However no surgical procedure has not yet been pursued as pt is unlikely to tolerate such procedure given the level of pain in her leg. A little over 1 month ago pt was prescribed antibiotics by her PCP as pain, pruritus, and erythema had increased. Despite being on oral antibiotics, symptoms worsened and patient's leg began ?pouring out? Clear liquid. Pt presents today due to ?my children forced me to . Denies fever, chills. No nausea, vomiting, abdominal pain. Denies chest pain/pressure, palpitations. No shortness a breath or difficulty breathing. Pt is an active smoker of 1-2 packs daily. In the ED pt's vitals stable and WNL. Labs were significant for mildly elevated inflammatory markers of ESR 26 and CRP 2.08, otherwise grossly unremarkable and around baseline for pt. No leukocytosis. Stable H&H. No significant electrolyte abnormalities. Renal function baseline. Lactic acid WNL. Hepatic function baseline. X-ray of right tibia and fibula negative for acute abnormalities. Right lower leg U/S venous duplex negative for DVT. Right lower extremity arterial duplex showed no hemodynamically significant stenosis. EKG demonstrated normal sinus rhythm without evidence of significant ST elevations or depressions. Pt was treated with morphine, ondansetron, ceftriaxone, and vancomycin. Pt will be admitted to the hospital for treatment and further evaluation of right lower extremity cellulitis that has failed outpatient therapy. Review of Systems 2 Review of Systems: Negative except for that which is stated in [facility] Medical History (Updated 04/07/24 @ 21:10 by DALTON Melo) Sciatica Social History Alcohol intake: current Alcohol intake frequency: does not drink Patient Tobacco Use Status: Current everyday Tobacco user Smoking Start Date: 05/07/1961 Smoked in Last 30 Days: Yes Advance Directives: No Advance Directives Information Provided: No Do you have a plan to hurt others: No Plan Meds Allergies Allergy/AdvReac Type Severity Reaction Status Date / Time meperidine [From Demerol] Allergy Severe Confusion Verified 04/07/24 16:40 penicillamine Allergy Unknown hives Verified 04/07/24 16:40 Codeine Phosphate Allergy Intermediate Vomiting Uncoded 10/26/23 12:40 penicillin Allergy Intermediate hives Uncoded 10/26/23 12:40 Active Medications: Current Medications Vancomycin HCl 1,250 mg/ (Sodium Chloride) 250 mls @ 166.667 mls/hr IV ONCE ONE Stop: 04/07/24 21:29 Last Admin: 04/07/24 20:19 Dose: 166.67 mls/hr Home Medications ?Medication ?Instructions ?Recorded ?Confirmed ?Last Taken ?Type ibuprofen 800 mg tablet 800 mg PO TID 03/03/23 10/26/23 Unknown History albuterol sulfate 90 mcg/actuation 1 - 2 puff inhalation Q6H PRN SOB 04/07/24 Unknown History aerosol inhaler gabapentin 600 mg tablet 600 mg PO TID 04/07/24 Unknown History lidocaine 5 % topical ointment topical QD-QID PRN Pain 04/07/24 Unknown History meloxicam 7.5 mg tablet 7.5 mg PO DAILY 04/07/24 Unknown History Physical Exam 2 Vital Signs and Narrative: Vital Signs: Last Vital Signs Temp 98.2 F 04/07/24 20:09 Pulse 90 04/07/24 20:09 Resp 20 04/07/24 20:09 BP 132/65 04/07/24 20:09 Pulse Ox 95 04/07/24 20:09 O2 Del Method Room Air 04/07/24 20:09 BMI result Body Mass Index 23.4 General: AOx3, no acute distress Resp: CTA bilaterally though diminished CVS: S1, S2, RRR GI: +BS, NT, no distention Skin: Warm, dry Neuro: Cranial nerves II-XII grossly intact bilaterally. Motor grossly intact bilaterally Extremities: Right lower extremity with erythema, edema, warmth, and clear discharge as pictured below Psych: Appropriate affect Results Labs 04/07/24 17:38 04/07/24 17:38 Labs: Laboratory Results - last 24 hr 04/07/24 17:38 MCV 79.2 L MCH 24.8 L MCHC 31.3 RDW 15.8 Plt Count 336 D MPV 9.1 L Immature Gran % (Auto) 0.3 Neut % (Auto) 74.8 H Lymph % (Auto) 17.9 L Prentiss % (Auto) 5.6 Eos % (Auto) 1.0 Baso % (Auto) 0.4 Lymph # (Auto) 1.8 Prentiss # (Auto) 0.6 Eos # (Auto) 0.1 Baso # (Auto) 0.0 Abs Immat Gran (auto) 0.03 Absolute Neuts (auto) 7.3 Absolute Nucleated RBC 0.000 Nucleated RBC % (auto) 0.0 ESR 26 H PT 12.1 INR 1.0 Anion Gap 13 Estim Creat Clear Calc 49.6 Estimated GFR > 60 Random Glucose 96 Lactic Acid 1.3 Calcium 9.3 Total Bilirubin 0.3 AST 18 ALT 12 Alkaline Phosphatase 96 C-Reactive Protein 2.08 H Total Protein 7.7 Albumin 4.0 Hold Green Top See Note Assessment and Plan (1) Cellulitis of right lower extremity: Status: Acute Plan Pt is a 78-year-old female with a PMH significant for?peripheral vascular disease, CRPS of right lower extremity, and chronic right lower extremity wound who presents to the ED with?worsening right lower extremity pain, erythema, and clear discharge x1 month. Pt will be admitted to the hospital for treatment and further evaluation of right lower extremity cellulitis that has failed outpatient therapy. Right lower extremity cellulitis Secondary to chronic nonhealing wound from initial CAT scratch 1-1/2 years ago Poor arterial flow likely contributory Worsening in the past month with spreading erythema, swelling, and clear drainage Prescribed course of Keflex approximately 1 month ago by PCP No sepsis: No tachycardia, tachypnea, or leukocytosis; lactic acid WNL Will treat with ceftriaxone and vancomycin, started 04/07/2024 Wound care consult Vascular surgery consult deferred as surgical intervention likely not warranted at this time Analgesics for pain management Follow cultures Complex regional pain syndrome Continue gabapentin Nicotine dependence Encouraged smoking cessation NRT Full Code Attending:?Dr. Stein DVT Prophylaxis: Lovenox Pt will require a hospitalization of at least two nights for treatment of?acute on chronic right lower extremity cellulitis. Given that pt has failed outpatient therapy and the extent of cellulitis, pt will require hospital level care for administration of IV antibiotics. Quality Stroke Does the patient have a stroke diagnosis?: No VTE Prior VTE?: No VTE Risk Level:: Medical - moderate - high VTE Device Contraindication: Treatment Not Indicated VTE Drug Contraindication: N/A - Med Ordered
--- NOTE | 2024-04-07 20:47 | PHA.PROG ---
Admission Date/Time: Indication: SKIN INFECTION Weight in k.431 kg Adjusted body weight in Kg: [place] body weight in Kg: Obesity Dosing Indication % IBW: Serum Creatinine - Last 168 Hours 04/07/24 17:38 Creatinine 0.67 Estimated CrCl and GFR - Last 168 Hours 04/07/24 17:38 Estim Creat Clear Calc 49.6 Estimated GFR > 60 Vancomycin Loading Dose: 1250 MG Current Vancomycin Dosing Regimen: 1250 MG Q24H Vancomycin Monitoring using AUC goal of 400 - 600 range with trough as surrogate marker: [id number] TROUGH=13 Date and Time for next Vancomycin Level to be drawn: 04/10/24 @1800 Pharmacist Comments on Vancomycin Plan: Vancomycin dosing will take advantage of [employer] as a clinical decision support tool that uses Bayesian modeling to calculate individual patient's pharmacokinetic parameters and forecast the patient's drug concentration time course with the target goal AUC 24 range of 400 - 600 mg/L/hr.
--- NOTE | 2024-04-07 21:04 | PHA.MEDREC ---
Pharmacy Consult ? Medication Reconciliation Pharmacy has completed the medication reconciliation, spoke to patient at bedside who confirmed all meds, said the only scheduled one is gabapentin and all others PRN, also confirmed she is not taking furosemide -said it was a short term thing .
[2024-04-07] MEDS: Gabapentin 600 MG TABLET PO (22:11)
[2024-04-07 22:34] VITALS: BP 119/51; PULSE 90; RESP 18; TEMP 37.2; O2SAT 93
--- NOTE | 2024-04-08 00:50 | PC.NURSE ---
pt medicated per mar, pt is sleeping at this time, no sign of distress.
--- NOTE | 2024-04-08 03:03 | PC.NURSE ---
pt is sleeping at this time, no sign of distress.
--- NOTE | 2024-04-08 03:59 | PC.NURSE ---
pt resting in bed eyes closed, respiration normal, unlabored.
[2024-04-08 05:18] LABS: Basophils Absolute Auto 0.1 X10*3/uL (0.0-0.2); Basophils Percent Auto 0.6 % (0-2); Eosinophils Absolute Auto 0.1 X10*3/uL (0.0-0.4); Eosinophils Percent Auto 0.9 % (0-4); Hematocrit 40.6 % (37.0-47.0); Hemoglobin 12.8 g/dl (12.0-16.0); Imm Gran Abs Auto 0.02 X10*3/uL (0.00-0.03); Imm Gran Pct Auto 0.3 % (0.0-0.4); Lymphocytes Percent Auto 25.4 % (20-40); MANUAL DIFF FLAG NO; Mean Corpuscular HGB Conc 31.5 g/dl (31.0-35.0); Mean Corpuscular Hemoglobin 24.9 pg (27.0-33.0); Mean Platelet Volume 9.1 fL (9.4-12.3); Monocytes Absolute Auto 0.5 X10*3/uL (0.1-1.2); Monocytes Percent Auto 6.7 % (2-11); Neutrophils Absolute Auto 5.1 x10*3/uL (2.0-8.3); Neutrophils Percent Auto 66.1 % (45-73); Platelet Count 323 X10*3/uL (160-400); Red Blood Count 5.14 X10*6/uL (4.20-5.50); Red Cell Distribution Width 15.3 % (11.0-16.0); White Blood Count 7.8 X10*3/uL (4.8-10.8)
[2024-04-08 05:29] LABS: Anion Gap 12 (12-20); Blood Urea Nitrogen 21 mg/dL (9-16); Calcium 9.2 mg/dL (8.4-10.2); Carbon Dioxide 25 mmol/L (22-29); Chloride 106 mmol/L (96-108); Creatinine Clr Calc Pharmacy 46.8; Estimated Glomerular Filt Rate > 60; Glucose Random 135 mg/dL (60-115); Sodium 139 mmol/L (135-145)
[2024-04-08] MEDS: 0.9 % Sodium Chloride Flush 3 ML SYRINGE IVFLUSH ×3 (05:49→23:40)
[2024-04-08] MEDS: Morphine Sulfate 2 MG/ML CARTRIDGE IVPUSH ×2 (05:50→18:45)
--- NOTE | 2024-04-08 06:11 | PC.NURSE ---
pt wound dressing changed, previous one was soaked. wound cleaned with ns, Vaseline gauze, wet to dry gauze + abd pad, applied covered with kerlix, wound consult placed
[2024-04-08] MEDS: Gabapentin 600 MG TABLET PO ×3 (08:24→20:46)
[2024-04-08] MEDS: Enoxaparin Sodium 40 MG/0.4 ML SYRINGE SUBCUT (08:25)
--- NOTE | 2024-04-08 09:30 | PC.NURSE ---
hospitalist at bedside.
--- NOTE | 2024-04-08 09:50 | PC.NURSE ---
pt is sleeping. was steady on feet with walker earlier. dressing clean and dry.
[2024-04-08 11:08] VITALS: BP 117/63; PULSE 95; RESP 18; TEMP 36.8; O2SAT 97
[2024-04-08 11:10] VITALS: BP 143/64; PULSE 82; RESP 16; TEMP 36.5; O2SAT 94
[2024-04-08 11:37] VITALS: BMI 23.2
--- NOTE | 2024-04-08 13:40 | PC.NURSE ---
Pt contract for safety. Does not want bed alarm on. Independent in the community with her ADLs.
--- NOTE | 2024-04-08 13:54 | P.PNIM_ITS ---
Subjective Subjective Date of Service: 04/08/24 Interval History: seen and evaluated this morning complaining of pain and drainage in RLE no fever or chills Review of Systems Review of Systems: Yes all other systems are reviewed and are negative Physical Exam 2 Vital Signs: Vital Signs: Last Vital Signs Temp 97.7 F 04/08/24 11:10 Pulse 82 04/08/24 11:10 Resp 16 04/08/24 11:10 BP 143/64 H 04/08/24 11:10 Pulse Ox 94 04/08/24 11:10 O2 Del Method Room Air 04/08/24 11:10 BMI result Body Mass Index 23.2 Const: Other: Constitutional : Awake, interactive, not in distress Neck : Normal inspection, Supple Cardiovascular : RRR, no JVP, no lower extremity edema Respiratory : good bilateral air entry, no crackles, wheezes or rhonchi Gastrointestinal: soft, lax, Normal bowel sounds, Non tender Skin : Warm, Dry, erythema and edema right lower extremity from the ankle up to below the knee. There are open wounds draining clear fluid mainly on the medial side Neurological : Alert & oriented x3, No focal deficit Skin: Other: Objective Data Active Medications Acetaminophen (Acetaminophen 325 Mg Tablet) 975 mg PO Q6H PRN PRN Reason: Pain, Mild 1-3,fever,headache Calcium Carbonate (Calcium Carbonate 750 Mg Tab.Chew) 750 mg PO Q4H PRN PRN Reason: Heartburn Ceftriaxone Sodium (Ceftriaxone Sodium 1 Gm Vial) 1 gm IVPUSH Q24H [facility] Enoxaparin Sodium (Enoxaparin Sodium 40 Mg/0.4 Ml Syringe) 40 mg SUBCUT Q24H [facility] Last Admin: 04/08/24 08:25 Dose: 40 mg Documented By: JANINE Gabapentin (Gabapentin 600 Mg Tablet) 600 mg PO TID [facility] Last Admin: 04/08/24 08:24 Dose: 600 mg Documented By: JANINE Vancomycin HCl 1,250 mg/ (Sodium Chloride) 250 mls @ 166.667 mls/hr IV Q24H [facility] Ibuprofen (Ibuprofen 800 Mg Tablet) 800 mg PO TID PRN PRN Reason: Pain, Moderate(Pain Scale 4-6) Magnesium Hydroxide (Milk Of Magnesia 30 Ml Oral.Susp) 30 ml PO DAILY PRN PRN Reason: Constipation Melatonin (Melatonin 3 Mg Tablet) 6 mg PO BEDTIME PRN PRN Reason: Insomnia Morphine Sulfate (Morphine Sulfate 2 Mg/Ml Cartridge) 2 mg IVPUSH Q3H PRN; Protocol PRN Reason: Pain, Severe (Pain Scale 7-10) Last Admin: 04/08/24 05:50 Dose: 2 mg Documented By: QUINTIN Pharmacy Consult (Consult Rx Vancomycin Dosing) 1 each MISCELLANE DAILY PRN PRN Reason: Consult order Sodium Chloride (0.9 % Sodium Chloride Flush 3 Ml Syringe) 3 ml IVFLUSH QSHIFT [facility] Last Admin: 04/08/24 08:47 Dose: Not Given Documented By: KIRSTEN Non-Admin Reason: Med Not Available Labs 04/08/24 05:13 04/08/24 05:13 Labs: Laboratory Results - last 24 hr 04/07/24 04/08/24 17:38 05:13 MCV 79.2 L 79.0 L MCH 24.8 L 24.9 L MCHC 31.3 31.5 RDW 15.8 15.3 Plt Count 336 D 323 MPV 9.1 L 9.1 L Immature Gran % (Auto) 0.3 0.3 Neut % (Auto) 74.8 H 66.1 Lymph % (Auto) 17.9 L 25.4 Meade % (Auto) 5.6 6.7 Eos % (Auto) 1.0 0.9 Baso % (Auto) 0.4 0.6 Lymph # (Auto) 1.8 2.0 [place]ade # (Auto) 0.6 0.5 Eos # (Auto) 0.1 0.1 Baso # (Auto) 0.0 0.1 Abs Immat Gran (auto) 0.03 0.02 Absolute Neuts (auto) 7.3 5.1 Absolute Nucleated RBC 0.000 0.000 Nucleated RBC % (auto) 0.0 0.0 ESR 26 H PT 12.1 INR 1.0 Anion Gap 13 12 Estim Creat Clear Calc 49.6 46.8 Estimated GFR > 60 > 60 Random Glucose 96 135 H Lactic Acid 1.3 Calcium 9.3 9.2 Total Bilirubin 0.3 AST 18 ALT 12 Alkaline Phosphatase 96 C-Reactive Protein 2.08 H Total Protein 7.7 Albumin 4.0 Hold Green Top See Note Assessment and Plan (1) Cellulitis of right lower extremity: Status: Acute (2) CRPS (complex regional pain syndrome), lower limb: Status: Acute (3) Chronic wound: Status: Acute Plan Pt is a 78-year-old female with a PMH significant for?peripheral vascular disease, CRPS of right lower extremity, and chronic right lower extremity wound who presents to the ED with?worsening right lower extremity pain, erythema, and clear discharge x1 month. Pt will be admitted to the hospital for treatment and further evaluation of right lower extremity cellulitis that has failed outpatient therapy. Right lower extremity cellulitis Secondary to chronic nonhealing wound w hx PAD Pending cultures Continue ceftriaxone and vancomycin, started 04/07/2024 Wound care apply RYAN wrap Arterial US not showing hemodynamically significant stenoses on right lower extremity arterial duplex. general surgery evaluation Analgesics for pain management follow Vanco trough Complex regional pain syndrome Continue gabapentin Nicotine dependence Encouraged smoking cessation NRT Full Code DVT Prophylaxis: Lovenox Pt will require a hospitalization overnight for treatment of?acute on chronic right lower extremity cellulitis. Given that pt has failed outpatient therapy and the extent of cellulitis, pt will require hospital level care for administration of IV antibiotics. Quality Stroke Does the patient have a stroke diagnosis?: No VTE Prior VTE?: No VTE Risk Level:: Medical - moderate - high VTE Device Contraindication: Treatment Not Indicated VTE Drug Contraindication: N/A - Med Ordered
--- NOTE | 2024-04-08 14:37 | P.CONGS_ITS ---
History of Present Illness Consult details Consult date: 04/08/24 Narrative: [age] year old female with chronic regional pain syndrome of the lower limbs, no neuropathy, smoker, admitted because of cellulitis of the right lower extremity She describes having this swelling, redness, and diffuse weeping of the right lower leg for over a year now. She describes pain as well on this leg. She has had dark discoloration of the left foot for that similar period of time She says that she has seen a vascular surgeon in the past and states that she did not want any procedure at that time. She was admitted because of this cellulitis. She says that the pain on the right are worse when she lays down in bed have these elevated. She therefore prefers having both feet down. Review of Systems 2 Constitutional: Constitutional: Denies chills and Denies fever(s) Cardiovascular: Cardiovascular: Denies chest pain, Denies dyspnea and Denies dyspnea on exertion Respiratory: Respiratory: Denies cough, Denies dyspnea and Denies dyspnea on exertion Gastrointestinal: Gastrointestinal: Denies hematochezia and Denies change in bowel habits Genitourinary: Genitourinary: Denies hematuria Musculoskeletal: Musculoskeletal: Denies back pain and Denies limited range of motion Neurologic: Denies focal weakness and Denies convulsions Psychiatric: Psychiatric: Denies depression and Denies mood swings PMFSH Past Medical History Medical History (Updated 04/08/24 @ 14:05 by Yves Lee MD) Sciatica Social History Social History Household Members: Children and Other Household Members Other:: 2 sons and a granddaughter Housing: Other Housing Other:: 2 Family house Do you presently have visiting nurse or other home services: No Alcohol intake: current Alcohol intake frequency: does not drink Patient Tobacco Use Status: Current everyday Tobacco user Smoking Start Date: 05/07/1961 Tobacco use type: Cigarette Cigarette Packs Per Day: 1 Cigarettes Per Day: 20.0 service: No Meds Allergies Allergy/AdvReac Type Severity Reaction Status Date / Time meperidine [From Demerol] Allergy Severe Confusion Verified 04/07/24 16:40 penicillamine Allergy Unknown hives Verified 04/07/24 16:40 Codeine Phosphate Allergy Intermediate Vomiting Uncoded 10/26/23 12:40 penicillin Allergy Intermediate hives Uncoded 10/26/23 12:40 Active Medications: Current Medications Acetaminophen (Acetaminophen 325 Mg Tablet) 975 mg PO Q6H PRN PRN Reason: Pain, Mild 1-3,fever,headache Calcium Carbonate (Calcium Carbonate 750 Mg Tab.Chew) 750 mg PO Q4H PRN PRN Reason: Heartburn Ceftriaxone Sodium (Ceftriaxone Sodium 1 Gm Vial) 1 gm IVPUSH Q24H [facility] Enoxaparin Sodium (Enoxaparin Sodium 40 Mg/0.4 Ml Syringe) 40 mg SUBCUT Q24H [facility] Last Admin: 04/08/24 08:25 Dose: 40 mg Gabapentin (Gabapentin 600 Mg Tablet) 600 mg PO TID [facility] Last Admin: 04/08/24 13:59 Dose: 600 mg Vancomycin HCl 1,250 mg/ (Sodium Chloride) 250 mls @ 166.667 mls/hr IV Q24H [facility] Ibuprofen (Ibuprofen 800 Mg Tablet) 800 mg PO TID PRN PRN Reason: Pain, Moderate(Pain Scale 4-6) Magnesium Hydroxide (Milk Of Magnesia 30 Ml Oral.Susp) 30 ml PO DAILY PRN PRN Reason: Constipation Melatonin (Melatonin 3 Mg Tablet) 6 mg PO BEDTIME PRN PRN Reason: Insomnia Morphine Sulfate (Morphine Sulfate 2 Mg/Ml Cartridge) 2 mg IVPUSH Q3H PRN; Protocol PRN Reason: Pain, Severe (Pain Scale 7-10) Last Admin: 04/08/24 05:50 Dose: 2 mg Pharmacy Consult (Consult Rx Vancomycin Dosing) 1 each MISCELLANE DAILY PRN PRN Reason: Consult order Sodium Chloride (0.9 % Sodium Chloride Flush 3 Ml Syringe) 3 ml IVFLUSH QSHIFT [facility] Last Admin: 04/08/24 14:00 Dose: 3 ml Home Medications ?Medication ?Instructions ?Recorded ?Confirmed ?Last Taken ?Type ibuprofen 800 mg tablet 800 mg PO TID PRN Pain 03/03/23 04/08/24 04/07/24 History albuterol sulfate 90 mcg/actuation 2 puff inhalation Q6H PRN SOB 04/07/24 04/08/24 04/07/24 History aerosol inhaler gabapentin 600 mg tablet 600 mg PO TID 04/07/24 04/07/24 04/07/24 14:00 History lidocaine 5 % topical ointment 1 appl topical QID PRN Pain 04/07/24 04/08/24 04/07/24 History meloxicam 7.5 mg tablet 7.5 mg PO DAILY PRN Pain 04/07/24 04/08/24 04/06/24 History Physical Exam 2 Vital Signs: Vital Signs: Last Vital Signs Temp 97.7 F 04/08/24 11:10 Pulse 82 04/08/24 11:10 Resp 16 04/08/24 11:10 BP 143/64 H 04/08/24 11:10 Pulse Ox 94 04/08/24 11:10 O2 Del Method Room Air 04/08/24 11:10 BMI result Body Mass Index 23.2 Const: Other: Answers questions well General: no acute distress Resp: Effort & Inspection: normal respiratory effort Cardio: Rate: regular rate GI: Palpation (GI): Soft to palpation, not firm and nontender Extrem: Other: Right lower extremity with diffuse marked edema, weeping especially in the aspect, diffuse redness and tenderness There is discoloration of the left foot which she says is chronic Results Labs 04/10/24 08:26 04/10/24 08:26 Labs: Abnormal lab results 04/07/24 04/08/24 Range/Units 17:38 05:13 RBC 5.57 H (4.20-5.50) X10*6/uL MCV 79.2 L 79.0 L (80.0-98.0) fL MCH 24.8 L 24.9 L (27.0-33.0) pg MPV 9.1 L 9.1 L (9.4-12.3) fL Neut % (Auto) 74.8 H (45-73) % Lymph % (Auto) 17.9 L (20-40) % ESR 26 H (0-20) MM/HR BUN 23 H 21 H (9-16) mg/dL Random Glucose 135 H (60-115) mg/dL C-Reactive Protein 2.08 H (< or = 0.50) mg/dL Short CBC 04/07/24 04/08/24 Range/Units 17:38 05:13 WBC 9.8 7.8 (4.8-10.8) X10*3/uL Hgb 13.8 12.8 (12.0-16.0) g/dl Hct 44.1 40.6 (37.0-47.0) % Plt Count 336 D 323 (160-400) X10*3/uL BMP 04/07/24 04/08/24 17:38 05:13 Sodium 139 139 Potassium 3.7 4.0 Chloride 105 106 Carbon Dioxide BUN 23 H 21 H Creatinine 0.67 0.71 Calcium 9.3 9.2 Liver Function 04/07/24 Range/Units 17:38 Total Bilirubin 0.3 (0.0-1.0) mg/dL AST 18 (5-31) U/L ALT 12 (0-31) U/L Alkaline Phosphatase 96 (39-117) U/L Albumin 4.0 (3.5-5.0) g/dL All other labs normal. Laboratory Results WBC 7.8 X10*3/uL (4.8-10.8) 04/08/24 05:13 RBC 5.14 X10*6/uL (4.20-5.50) 04/08/24 05:13 Hgb 12.8 g/dl (12.0-16.0) 04/08/24 05:13 Hct 40.6 % (37.0-47.0) 04/08/24 05:13 MCV 79.0 fL (80.0-98.0) L 04/08/24 05:13 MCH 24.9 pg (27.0-33.0) L 04/08/24 05:13 MCHC 31.5 g/dl (31.0-35.0) 04/08/24 05:13 RDW 15.3 % (11.0-16.0) 04/08/24 05:13 Plt Count 323 X10*3/uL (160-400) 04/08/24 05:13 MPV 9.1 fL (9.4-12.3) L 04/08/24 05:13 Immature Gran % (Auto) 0.3 % (0.0-0.4) 04/08/24 05:13 Neut % (Auto) 66.1 % (45-73) 04/08/24 05:13 Lymph % (Auto) 25.4 % (20-40) 04/08/24 05:13 [place] % (Auto) 6.7 % (2-11) 04/08/24 05:13 Eos % (Auto) 0.9 % (0-4) 04/08/24 05:13 Baso % (Auto) 0.6 % (0-2) 04/08/24 05:13 Lymph # (Auto) 2.0 X10*3/uL (1.2-4.9) 04/08/24 05:13 [place] # (Auto) 0.5 X10*3/uL (0.1-1.2) 04/08/24 05:13 Eos # (Auto) 0.1 X10*3/uL (0.0-0.4) 04/08/24 05:13 Baso # (Auto) 0.1 X10*3/uL (0.0-0.2) 04/08/24 05:13 Abs Immat Gran (auto) 0.02 X10*3/uL (0.00-0.03) 04/08/24 05:13 Absolute Neuts (auto) 5.1 x10*3/uL (2.0-8.3) 04/08/24 05:13 Absolute Nucleated RBC 0.000 X10*3/uL (0.0-0.012) 04/08/24 05:13 Nucleated RBC % (auto) 0.0 /100WBC (0.0-0.2) 04/08/24 05:13 ESR 26 MM/HR (0-20) H 04/07/24 17:38 PT 12.1 SEC (10.9-12.4) 04/07/24 17:38 INR 1.0 (0.9-1.1) 04/07/24 17:38 Sodium 139 mmol/L (135-145) 04/08/24 05:13 Potassium 4.0 mmol/L (3.3-5.1) 04/08/24 05:13 Chloride 106 mmol/L (96-108) 04/08/24 05:13 Carbon Dioxide 25 mmol/L (22-29) 04/08/24 05:13 Anion Gap 12 (12-20) 04/08/24 05:13 BUN 21 mg/dL (9-16) H 04/08/24 05:13 Creatinine 0.71 mg/dL (0.5-1.4) 04/08/24 05:13 Estim Creat Clear Calc 46.8 04/08/24 05:13 Estimated GFR > 60 04/08/24 05:13 Random Glucose 135 mg/dL (60-115) H 04/08/24 05:13 Lactic Acid 1.3 mmol/L (0.5-2.0) 04/07/24 17:38 Calcium 9.2 mg/dL (8.4-10.2) 04/08/24 05:13 Total Bilirubin 0.3 mg/dL (0.0-1.0) 04/07/24 17:38 AST 18 U/L (5-31) 04/07/24 17:38 ALT 12 U/L (0-31) 04/07/24 17:38 Alkaline Phosphatase 96 U/L (39-117) 04/07/24 17:38 C-Reactive Protein 2.08 mg/dL (< or = 0.50) H 04/07/24 17:38 Total Protein 7.7 g/dL (6.5-8.0) 04/07/24 17:38 Albumin 4.0 g/dL (3.5-5.0) 04/07/24 17:38 Hold Green Top See Note 04/07/24 17:38 Assessment and Plan (1) Cellulitis of right lower extremity: Status: Acute She has this chronic leg edema, diffuse weeping and redness. She has had vascular studies including venous duplex as well as arterial Dopplers which do not suggest DVT nor stenosis of the distal vessels I have changed her dressings. She needs good wound care because of her weeping. She prefers both feet to be lower on the floor even as I recommended for her to do leg elevation to help with the edema. I would recommend therefore for her to be seen by vascular surgery for opinion. She had been seen by Dr. Butcher mostly a year ago and was thought to have peripheral arterial disease. I will check on her wound periodically while she is in the hospital Procedures Date of Service Date of Service: 04/15/24
[2024-04-08 15:38] VITALS: BP 130/61; PULSE 75; RESP 20; TEMP 36.1; O2SAT 95
--- NOTE | 2024-04-08 18:44 | PC.NURSE ---
wound care done at this time per order, pt tolerated well.
[2024-04-08 19:41] VITALS: BP 136/73; PULSE 74; RESP 18; TEMP 36.5; O2SAT 94
[2024-04-08] MEDS: cefTRIAXone sodium 1 GM VIAL IVPUSH (20:46)
[2024-04-08] MEDS: vancomycin HCL 1,250 MG in 0.9 % Sodium Chloride 250 ML 166.67 MG IV (20:50)
[2024-04-09 03:50] VITALS: BP 115/73; PULSE 88; RESP 16; TEMP 36.4; O2SAT 95
[2024-04-09 04:12] VITALS: RESP 16
[2024-04-09] MEDS: Morphine Sulfate 2 MG/ML CARTRIDGE IVPUSH (04:12)
--- NOTE | 2024-04-09 05:29 | PC.NURSE ---
Notified by phlebotomy patient refusing am labs, bmp and cbc. Patient reporting she is bruising too much from lab draws. Dr. Stein made aware.
[2024-04-09 07:29] VITALS: BP 142/82; PULSE 83; RESP 14; TEMP 36.2; O2SAT 95
[2024-04-09] MEDS: Gabapentin 600 MG TABLET PO ×3 (09:15→19:22)
--- NOTE | 2024-04-09 09:32 | PC.NURSE ---
Pt very particular about what she will and will not due . Pt refused Lovenox injection pt educated on rational for use and understands uses but declined . RLE dressing changed per orders pt refused the use of an maribel bandage and to elevate RLE rational given pt states she has more pain when elevated and doesn't think she can tolerate the maribel wrap , encouraged we can try it and not put it to tight but she still refused . continue to educate pt
--- NOTE | 2024-04-09 09:55 | P.PNGS_ITS ---
Subjective Subjective Date of Service: 04/09/24 Interval history: New complaints No changes clinically Has pain on both feet Physical Exam 2 Vital Signs: Vital Signs: Last Vital Signs Temp 97.1 F 04/09/24 07:29 Pulse 83 04/09/24 07:29 Resp 14 04/09/24 07:29 BP 142/82 H 04/09/24 07:29 Pulse Ox 95 04/09/24 07:29 O2 Del Method Room Air 04/09/24 07:29 BMI result Body Mass Index 23.2 Const: General: comfortable and no acute distress Resp: Effort & Inspection: normal respiratory effort Extrem: Other: Dressings in place with, with note of weeping, edema, diffusely of the right lower leg Dark discoloration of the left foot Objective Data Active Medications Acetaminophen (Acetaminophen 325 Mg Tablet) 975 mg PO Q6H PRN PRN Reason: Pain, Mild 1-3,fever,headache Calcium Carbonate (Calcium Carbonate 750 Mg Tab.Chew) 750 mg PO Q4H PRN PRN Reason: Heartburn Ceftriaxone Sodium (Ceftriaxone Sodium 1 Gm Vial) 1 gm IVPUSH Q24H [facility] Last Admin: 04/08/24 20:46 Dose: 1 gm Documented By: RAAD Enoxaparin Sodium (Enoxaparin Sodium 40 Mg/0.4 Ml Syringe) 40 mg SUBCUT Q24H [facility] Last Admin: 04/09/24 09:15 Dose: Not Given Documented By: ZAC Non-Admin Reason: Patient Refused Gabapentin (Gabapentin 600 Mg Tablet) 600 mg PO TID [facility] Last Admin: 04/09/24 09:15 Dose: 600 mg Documented By: ZAC Vancomycin HCl 1,250 mg/ (Sodium Chloride) 250 mls @ 166.667 mls/hr IV Q24H [facility] Last Infusion: 04/08/24 22:30 Dose: Infused Documented By: RAAD Ibuprofen (Ibuprofen 800 Mg Tablet) 800 mg PO TID PRN PRN Reason: Pain, Moderate(Pain Scale 4-6) Magnesium Hydroxide (Milk Of Magnesia 30 Ml Oral.Susp) 30 ml PO DAILY PRN PRN Reason: Constipation Melatonin (Melatonin 3 Mg Tablet) 6 mg PO BEDTIME PRN PRN Reason: Insomnia Pharmacy Consult (Consult Rx Vancomycin Dosing) 1 each MISCELLANE DAILY PRN PRN Reason: Consult order Sodium Chloride (0.9 % Sodium Chloride Flush 3 Ml Syringe) 3 ml IVFLUSH QSHIFT [facility] Last Admin: 04/09/24 09:15 Dose: Not Given Documented By: ZAC Non-Admin Reason: Patient Refused Labs 04/08/24 05:13 04/08/24 05:13 Microbiology Microbiology Results: Microbiology 04/07/24 17:37 Blood Culture - Preliminary Blood - Venous No growth after 24 hours. 04/07/24 17:12 Blood Culture - Preliminary Blood - Venous No growth after 24 hours. Procedures Date of Service Date of Service: 04/09/24 Progress Note: A&P Assessment and plan (1) PAD (peripheral artery disease): Status: Acute Assessment and Plan: With note of edema, weeping of the right leg She has been previously seen by Dr. Butcher She says that she does not want any intervention for both feet Continue wound care with dressing changes daily Time Spent With Patient Time: Total time managing care of this patient today ____ minutes. Quality Stroke Does the patient have a stroke diagnosis?: No VTE Prior VTE?: No VTE Risk Level:: Medical - moderate - high VTE Device Contraindication: Treatment Not Indicated VTE Drug Contraindication: N/A - Med Ordered
--- NOTE | 2024-04-09 10:04 | P.CONGS_ITS ---
History of Present Illness Consult details Consult date: 04/09/24 Narrative: Very pleasant 70-year-old female with right lower extremity cellulitis and edema presents for vascular evaluation. She had actually seen us back in April of 2023. At that time she had arterial and venous testing done. Venous testing had actually shown to be negative. Arterial testing did demonstrate an element of peripheral vascular disease. At that time she denied any intervention and believe that it was more neurogenic in nature. She had been seen and assessed by the General surgery team and now presents to us for vascular evaluation. Review of Systems 2 Review of Systems: Yes all other systems are reviewed and are negative Constitutional: Constitutional: Reports no additional constitutional complaints ENT: Reports Normal hearing present Cardiovascular: Cardiovascular: Denies chest pain, Denies chest pain at rest, Denies chest pain with activity and Denies pedal edema Respiratory: Respiratory: Denies cough Gastrointestinal: Gastrointestinal: Denies abdominal pain Musculoskeletal: Musculoskeletal: Denies abnormal gait, Denies muscle cramps and Denies radiating pain into limb Integumentary/Breasts: Skin/Breast: Denies skin ulcer and Denies wounds Neurologic: Reports Normal hearing present and Denies abnormal gait Psychiatric: Psychiatric: Reports no additional psychiatric complaints PMF Past Medical History Medical History (Updated 04/08/24 @ 14:05 by Yves Lee MD) Sciatica Social History Social History Household Members: Children and Other Household Members Other:: 2 sons and a granddaughter Housing: Other Housing Other:: 2 Family house Do you presently have visiting nurse or other home services: No Alcohol intake: current Alcohol intake frequency: does not drink Patient Tobacco Use Status: Current everyday Tobacco user Smoking Start Date: 05/07/1961 Tobacco use type: Cigarette Cigarette Packs Per Day: 1 Cigarettes Per Day: 20.0 Meds Allergies Allergy/AdvReac Type Severity Reaction Status Date / Time meperidine [From Demerol] Allergy Severe Confusion Verified 04/07/24 16:40 penicillamine Allergy Unknown hives Verified 04/07/24 16:40 Codeine Phosphate Allergy Intermediate Vomiting Uncoded 10/26/23 12:40 penicillin Allergy Intermediate hives Uncoded 10/26/23 12:40 Active Medications: Current Medications Acetaminophen (Acetaminophen 325 Mg Tablet) 975 mg PO Q6H PRN PRN Reason: Pain, Mild 1-3,fever,headache Calcium Carbonate (Calcium Carbonate 750 Mg Tab.Chew) 750 mg PO Q4H PRN PRN Reason: Heartburn Ceftriaxone Sodium (Ceftriaxone Sodium 1 Gm Vial) 1 gm IVPUSH Q24H [facility] Last Admin: 04/08/24 20:46 Dose: 1 gm Enoxaparin Sodium (Enoxaparin Sodium 40 Mg/0.4 Ml Syringe) 40 mg SUBCUT Q24H [facility] Last Admin: 04/09/24 09:15 Dose: Not Given Gabapentin (Gabapentin 600 Mg Tablet) 600 mg PO TID [facility] Last Admin: 04/09/24 09:15 Dose: 600 mg Vancomycin HCl 1,250 mg/ (Sodium Chloride) 250 mls @ 166.667 mls/hr IV Q24H [facility] Last Infusion: 04/08/24 22:30 Dose: Infused Ibuprofen (Ibuprofen 800 Mg Tablet) 800 mg PO TID PRN PRN Reason: Pain, Moderate(Pain Scale 4-6) Magnesium Hydroxide (Milk Of Magnesia 30 Ml Oral.Susp) 30 ml PO DAILY PRN PRN Reason: Constipation Melatonin (Melatonin 3 Mg Tablet) 6 mg PO BEDTIME PRN PRN Reason: Insomnia Pharmacy Consult (Consult Rx Vancomycin Dosing) 1 each MISCELLANE DAILY PRN PRN Reason: Consult order Sodium Chloride (0.9 % Sodium Chloride Flush 3 Ml Syringe) 3 ml IVFLUSH QSHIFT [facility] Last Admin: 04/09/24 09:15 Dose: Not Given Home Medications ?Medication ?Instructions ?Recorded ?Confirmed ?Last Taken ?Type ibuprofen 800 mg tablet 800 mg PO TID PRN Pain 03/03/23 04/08/24 04/07/24 History albuterol sulfate 90 mcg/actuation 2 puff inhalation Q6H PRN SOB 04/07/24 04/08/24 04/07/24 History aerosol inhaler gabapentin 600 mg tablet 600 mg PO TID 04/07/24 04/07/24 04/07/24 14:00 History lidocaine 5 % topical ointment 1 appl topical QID PRN Pain 04/07/24 04/08/24 04/07/24 History meloxicam 7.5 mg tablet 7.5 mg PO DAILY PRN Pain 04/07/24 04/08/24 04/06/24 History Physical Exam 2 Vital Signs: Vital Signs: Last Vital Signs Temp 97.1 F 04/09/24 07:29 Pulse 83 04/09/24 07:29 Resp 14 04/09/24 07:29 BP 142/82 H 04/09/24 07:29 Pulse Ox 95 04/09/24 07:29 O2 Del Method Room Air 04/09/24 07:29 BMI result Body Mass Index 23.2 Const: General: cooperative, healthy appearing and comfortable O rientation/consciousness: oriented to person, oriented to place and oriented to time HEENT: Head: Yes normal to inspection Neck: Neck: Yes normal visual inspection Carotids: no bruits Chest: Chest palpation & inspection: normal inspection of the chest Resp: Effort & Inspection: normal respiratory effort and able to speak in complete sentences Auscultation: clear to auscultation bilaterally, no crackles, no rales, no rhonchi and no wheezes Cardio: Other: Bilateral DP signals Rate: regular rate Rhythm: regular rhythm Heart sounds: S1 normal heart sound present and S2 normal heart sound present Bruits: no carotid bruits GI: Inspection: Yes normal to inspection Skin: Wounds: no wounds Hair: normal Neuro: General: oriented to person, oriented to place and oriented to time Cranial nerves: Yes CN's II-XII intact bilaterally and Yes Normal hearing present Cognition (Neuro): normal cognition Motor exam (neuro): 5/5 motor strength present throughout Extrem: Other: Right lower extremity +2 edema with cellulitis a proximally 5 cm [id number] on down. Left lower extremity within normal limits. General: No clubbing, No cyanosis and No edema Psych: Appearance: grossly normal Mental Status: mental status grossly normal Speech and movement: Normal speech and movement present Results Labs 04/08/24 05:13 04/08/24 05:13 Labs: All other labs normal. Assessment and Plan (1) PAD (peripheral artery disease): Status: Acute Plan In short patient has an element of [place]. We do know that she has concerns of SFA disease on prior studies. She recently had a repeat arterial which does demonstrate this once again but official read is still pending. Upon extensive discussion with her she has refused any sort of intervention. She is convinced that this is all neurogenic in nature and I tried to explain that she does have an element of peripheral vascular disease. At the current time would recommend continued medical management. Antibiotics and diuretics as needed. We will follow on an as-needed basis. Thank you for allowing us to assist in her care. Procedures Date of Service Date of Service: 04/09/24
--- NOTE | 2024-04-09 11:25 | MHC.CM.PN ---
PT LIVES WITH MANY FAMILY MEMEBERS HAD NO PREVIOUS SERVIES HAS OWN RIDE HOME
[2024-04-09] MEDS: Ibuprofen 800 MG TABLET PO ×2 (13:01→19:22)
--- NOTE | 2024-04-09 14:11 | HO.PM.IMPN ---
Subjective Subjective Date of Service: 04/09/24 Interval History: seen and evaluated this morning complaining of pain and drainage in RLE no fever or chills Physical Exam Vital Signs: Vital Signs: Last Vital Signs Temp 97.1 F 04/09/24 07:29 Pulse 83 04/09/24 07:29 Resp 14 04/09/24 07:29 BP 142/82 H 04/09/24 07:29 Pulse Ox 95 04/09/24 07:29 O2 Del Method Room Air 04/09/24 07:29 BMI result Body Mass Index 23.2 Const: Other: Constitutional : Awake, interactive, not in distress Neck : Normal inspection, Supple Cardiovascular : RRR, no JVP, no lower extremity edema Respiratory : good bilateral air entry, no crackles, wheezes or rhonchi Gastrointestinal: soft, lax, Normal bowel sounds, Non tender Skin : Warm, Dry, erythema and edema right lower extremity from the ankle up to below the knee. There are open wounds draining clear fluid mainly on the medial side Neurological : Alert & oriented x3, No focal deficit Objective Data Active Medications Acetaminophen (Acetaminophen 325 Mg Tablet) 975 mg PO Q6H PRN PRN Reason: Pain, Mild 1-3,fever,headache Calcium Carbonate (Calcium Carbonate 750 Mg Tab.Chew) 750 mg PO Q4H PRN PRN Reason: Heartburn Ceftriaxone Sodium (Ceftriaxone Sodium 1 Gm Vial) 1 gm IVPUSH Q24H [facility] Last Admin: 04/08/24 20:46 Dose: 1 gm Documented By: RAAD Enoxaparin Sodium (Enoxaparin Sodium 40 Mg/0.4 Ml Syringe) 40 mg SUBCUT Q24H [facility] Last Admin: 04/09/24 09:15 Dose: Not Given Documented By: ZAC Non-Admin Reason: Patient Refused Gabapentin (Gabapentin 600 Mg Tablet) 600 mg PO TID [facility] Last Admin: 04/09/24 09:15 Dose: 600 mg Documented By: ZAC Vancomycin HCl 1,250 mg/ (Sodium Chloride) 250 mls @ 166.667 mls/hr IV Q24H [facility] Last Infusion: 04/08/24 22:30 Dose: Infused Documented By: RAAD Ibuprofen (Ibuprofen 800 Mg Tablet) 800 mg PO TID PRN PRN Reason: Pain, Moderate(Pain Scale 4-6) Last Admin: 04/09/24 13:01 Dose: 800 mg Documented By: ZAC Magnesium Hydroxide (Milk Of Magnesia 30 Ml Oral.Susp) 30 ml PO DAILY PRN PRN Reason: Constipation Melatonin (Melatonin 3 Mg Tablet) 6 mg PO BEDTIME PRN PRN Reason: Insomnia Pharmacy Consult (Consult Rx Vancomycin Dosing) 1 each MISCELLANE DAILY PRN PRN Reason: Consult order Sodium Chloride (0.9 % Sodium Chloride Flush 3 Ml Syringe) 3 ml IVFLUSH QSHIFT [facility] Last Admin: 04/09/24 09:15 Dose: Not Given Documented By: ZAC Non-Admin Reason: Patient Refused Labs 04/08/24 05:13 04/08/24 05:13 Microbiology Microbiology Results: Microbiology 04/07/24 17:37 Blood Culture - Preliminary Blood - Venous No growth after 24 hours. 04/07/24 17:12 Blood Culture - Preliminary Blood - Venous No growth after 24 hours. Assessment and Plan (1) Chronic wound: Status: Acute (2) Cellulitis of right lower extremity: Status: Acute Plan Pt is a 78-year-old female with a PMH significant for?peripheral vascular disease, CRPS of right lower extremity, and chronic right lower extremity wound who presents to the ED with?worsening right lower extremity pain, erythema, and clear discharge x1 month. Pt will be admitted to the hospital for treatment and further evaluation of right lower extremity cellulitis that has failed outpatient therapy. Right lower extremity cellulitis Secondary to chronic nonhealing wound w hx PAD Pending cultures Continue ceftriaxone and vancomycin, started 04/07/2024 Wound care apply RYNA wrap Arterial US not showing hemodynamically significant stenoses on right lower extremity arterial duplex. Showing PAD evidence of LLE general surgery input, wound care Vascular surgery, she has PAD she refuses to accept , refusing any intervention Analgesics for pain management follow Vanco trough Complex regional pain syndrome Continue gabapentin Nicotine dependence Encouraged smoking cessation NRT Full Code DVT Prophylaxis: Lovenox Pt will require a hospitalization overnight for treatment of?acute on chronic right lower extremity cellulitis. Given that pt has failed outpatient therapy and the extent of cellulitis, pt will require hospital level care for administration of IV antibiotics. Quality Stroke Does the patient have a stroke diagnosis?: No VTE Prior VTE?: No VTE Risk Level:: Medical - moderate - high VTE Device Contraindication: Treatment Not Indicated VTE Drug Contraindication: N/A - Med Ordered
[2024-04-09] MEDS: 0.9 % Sodium Chloride Flush 3 ML SYRINGE IVFLUSH (14:33)
[2024-04-09 15:09] VITALS: BP 114/56; PULSE 73; RESP 14; TEMP 36.6; O2SAT 93
[2024-04-09] MEDS: cefTRIAXone sodium 1 GM VIAL IVPUSH (19:20)
[2024-04-09] MEDS: vancomycin HCL 1,250 MG in 0.9 % Sodium Chloride 250 ML 166.67 MG IV (19:23)
[2024-04-09 19:30] VITALS: BP 110/58; PULSE 88; RESP 16; TEMP 36.4; O2SAT 96
[2024-04-10] MEDS: 0.9 % Sodium Chloride Flush 3 ML SYRINGE IVFLUSH ×2 (00:25→08:42)
--- NOTE | 2024-04-10 03:59 | PC.NURSE ---
dressing changed at 0000 04/10/24 due to saturation of serosanguenous drainage.
[2024-04-10 04:55] VITALS: BP 121/58; PULSE 64; RESP 16; TEMP 36; O2SAT 97
--- NOTE | 2024-04-10 05:19 | PC.NURSE ---
Patient refused lab draw this morning. Taxation Economist asked if they could come back around 8 which she agreed to.
[2024-04-10] MEDS: Ibuprofen 800 MG TABLET PO (06:19)
[2024-04-10 07:19] VITALS: BP 125/77; PULSE 71; RESP 16; TEMP 36.2; O2SAT 95
[2024-04-10 07:21] VITALS: BP 125/77; PULSE 78; RESP 16; TEMP 36; O2SAT 98
[2024-04-10] MEDS: Gabapentin 600 MG TABLET PO (08:40)
[2024-04-10 08:41] LABS: MANUAL DIFF FLAG NO
[2024-04-10 08:43] LABS: Basophils Absolute Auto 0.1 X10*3/uL (0.0-0.2); Basophils Percent Auto 0.8 % (0-2); Eosinophils Absolute Auto 0.2 X10*3/uL (0.0-0.4); Eosinophils Percent Auto 2.9 % (0-4); Hematocrit 37.5 % (37.0-47.0); Hemoglobin 12.1 g/dl (12.0-16.0); Imm Gran Abs Auto 0.02 X10*3/uL (0.00-0.03); Imm Gran Pct Auto 0.3 % (0.0-0.4); Lymphocytes Percent Auto 31.6 % (20-40); Mean Corpuscular HGB Conc 32.3 g/dl (31.0-35.0); Mean Corpuscular Volume 77.5 fL (80.0-98.0); Monocytes Absolute Auto 0.5 X10*3/uL (0.1-1.2); Monocytes Percent Auto 7.8 % (2-11); Neutrophils Absolute Auto 3.6 x10*3/uL (2.0-8.3); Neutrophils Percent Auto 56.6 % (45-73); Platelet Count 290 X10*3/uL (160-400); Red Blood Count 4.84 X10*6/uL (4.20-5.50); Red Cell Distribution Width 15.3 % (11.0-16.0); White Blood Count 6.3 X10*3/uL (4.8-10.8)
[2024-04-10 08:55] LABS: Creatinine Clr Calc Pharmacy 47.5; Estimated Glomerular Filt Rate > 60
[2024-04-10 08:56] LABS: Anion Gap 11 (12-20); Blood Urea Nitrogen 22 mg/dL (9-16); Calcium 9.2 mg/dL (8.4-10.2); Carbon Dioxide 25 mmol/L (22-29); Chloride 107 mmol/L (96-108); Creatinine Clr Calc Pharmacy 45.6; Estimated Glomerular Filt Rate > 60; Glucose Random 95 mg/dL (60-115); Sodium 139 mmol/L (135-145)
--- NOTE | 2024-04-10 09:04 | MHC.CM.PN ---
per discussion with pt [facility] to be [facility] tioday
--- NOTE | 2024-04-10 10:55 | P.F2F_ITS ---
Service Date Service Date: 04/10/24 Encounter Date of encounter: 04/10/24 Reasons for Services Signs and symptoms assessed: Chronic open wound Reason for care home: wound care (RLE wound clean with saline, gauze, wet to dry gauze and cover with kerlix. use Abd pad if needed. Wrap with RYAN wrap daily as tolerated) and teach disease management Homebound: Leaving the home is medically contraindicated at this time without the asist of a device and/or another person due th the listed conditions above and below. Reason homebound: unable to drive Certification: Based on the above findings, I certify that this patient is confined to the home and needs intermittent care home care, physical therapy and/or speech therapy, or continues to need occupational therapy. The patient is under my care, and I have initiated the establishment of the plan of care. The patient will be followed by a physician who will periodically review the plan of care. Time Spent With Patient Time: Total time managing care of this patient today ____ minutes.
--- NOTE | 2024-04-10 10:55 | PM.DS ---
DS: Providers Provider Date of Service: 04/10/24 Date of admission: 04/07/24 20:28 Date of discharge: 04/10/24 Primary care physician: DALTON Castorena Consults: 04/08/24 06:05 Consult to Wound Care Routine Reason for consultation: right leg wound 04/08/24 14:05 Consult to General Surgery Routine Consulting Provider: [facility] Reason for consultation: Chronic worsening RLE wound w no evidence of PAD. 04/08/24 14:32 Consult to Vascular Surgery Routine Consulting Provider: [facility] Reason for consultation: LLE pain. DS: Diagnosis Discharge Diagnosis (1) Chronic wound: Status: Acute (2) Cellulitis of right lower extremity: Status: Acute DS: Summary Hospital Course Hospital Course: Admission note HPI Pt is a 78-year-old female with a PMH significant for?peripheral vascular disease, CRPS of right lower extremity, and chronic right lower extremity wound who presents to the ED with?worsening right lower extremity pain, erythema, and clear discharge x1 month. Pt reports over 40 years ago she experienced nerve damage in her right lower extremity and since then has chronic numbness, tingling, weakness, and pain in right lower extremity. Proximally 1-1/2 years ago pt was scratched by her cat on the medial aspect of her right leg which then developed a wound with surrounding rash that was difficult to heal. [facility] but has not followed with them for many months. Also presented to Dr. Butcher in vascular surgery who feels for arterial flow is contributing to patient's nonhealing ulcer. However no surgical procedure has not yet been pursued as pt is unlikely to tolerate such procedure given the level of pain in her leg. A little over 1 month ago pt was prescribed antibiotics by her PCP as pain, pruritus, and erythema had increased. Despite being on oral antibiotics, symptoms worsened and patient's leg began ?pouring out? Clear liquid. Pt presents today due to ?my children forced me to . Denies fever, chills. No nausea, vomiting, abdominal pain. Denies chest pain/pressure, palpitations. No shortness a breath or difficulty breathing. Pt is an active smoker of 1-2 packs daily. In the ED pt's vitals stable and WNL. Labs were significant for mildly elevated inflammatory markers of ESR 26 and CRP 2.08, otherwise grossly unremarkable and around baseline for pt. No leukocytosis. Stable H&H. No significant electrolyte abnormalities. Renal function baseline. Lactic acid WNL. Hepatic function baseline. X-ray of right tibia and fibula negative for acute abnormalities. Right lower leg U/S venous duplex negative for DVT. Right lower extremity arterial duplex showed no hemodynamically significant stenosis. EKG demonstrated normal sinus rhythm without evidence of significant ST elevations or depressions. Pt was treated with morphine, ondansetron, ceftriaxone, and vancomycin. Pt will be admitted to the hospital for treatment and further evaluation of right lower extremity cellulitis that has failed outpatient therapy. Hospital course The patient was admitted for treatment of Right lower extremity cellulitis Secondary to chronic nonhealing wound w hx PAD as he blood cultures came back negative. she was treated with ceftriaxone and vancomycin, started 04/07/2024 along with Wound care with apply RYAN wrap as Arterial US not showing hemodynamically significant stenoses on right lower extremity arterial duplex. but Showing PAD evidence of LLE. she was evaluated by general surgery input who recommended wound care only for now and to follow with wound clinic. She was also seen by Vascular surgery, she has PAD she is refusing any intervention. Will be discharged home on Doxycycline for 1 more week, VNA for wound care and to follow with wound clinic as outpatient. Discharge plan Doxycycline two times a day Wound care at home Follow with wound center Time Attestation Discharge Coordination Time (in mins): 38 Quality: Safe Use of Opioids Does Pt have an Active Cancer Diagnosis on the Problem List?: No Quality: Stroke Does the patient have a stroke diagnosis?: No Physical Exam Vital Signs: Vital Signs: Last Vital Signs Temp 96.8 F 04/10/24 07:21 Pulse 78 04/10/24 07:21 Resp 16 04/10/24 07:21 BP 125/77 04/10/24 07:21 Pulse Ox 98 04/10/24 07:21 O2 Del Method Room Air 04/10/24 07:21 BMI result Body Mass Index 23.2 Const: Other: Constitutional : Awake, interactive, not in distress Neck : Normal inspection, Supple Cardiovascular : RRR, no JVP, no lower extremity edema Respiratory : good bilateral air entry, no crackles, wheezes or rhonchi Gastrointestinal: soft, lax, Normal bowel sounds, Non tender Skin : Warm, Dry, improved erythema and edema right lower extremity from the ankle up to below the knee but still visible in her foot. There are open wounds draining clear fluid mainly on the medial side covered with dressing Neurological : Alert & oriented x3, No focal deficit DS: Data Data Completed and Pending Labs on day of discharge: Laboratory Results - last 24 hr 04/10/24 04/10/24 04/10/24 08:26 08:26 08:26 WBC 6.3 RBC 4.84 Hgb 12.1 Hct 37.5 MCV 77.5 L MCH 25.0 L MCHC 32.3 RDW 15.3 Plt Count 290 MPV 9.0 L Immature Gran % (Auto) 0.3 Neut % (Auto) 56.6 Lymph % (Auto) 31.6 Grayson % (Auto) 7.8 Eos % (Auto) 2.9 Baso % (Auto) 0.8 Lymph # (Auto) 2.0 Grayson # (Auto) 0.5 Eos # (Auto) 0.2 Baso # (Auto) 0.1 Abs Immat Gran (auto) 0.02 Absolute Neuts (auto) 3.6 Absolute Nucleated RBC 0.000 Nucleated RBC % (auto) 0.0 Sodium 139 Potassium 4.0 Chloride 107 Carbon Dioxide 25 Anion Gap 11 L BUN 22 H Creatinine 0.73 0.70 Estim Creat Clear Calc 45.6 47.5 Estimated GFR > 60 Random Glucose Calcium 04/10/24 08:26 WBC RBC Hgb Hct MCV MCH MCHC RDW Plt Count MPV Immature Gran % (Auto) Neut % (Auto) Lymph % (Auto) Grayson % (Auto) Eos % (Auto) Baso % (Auto) Lymph # (Auto) Grayson # (Auto) Eos # (Auto) Baso # (Auto) Abs Immat Gran (auto) Absolute Neuts (auto) Absolute Nucleated RBC Nucleated RBC % (auto) Sodium Potassium Chloride Carbon Dioxide Anion Gap BUN Creatinine Estim Creat Clear Calc Estimated GFR > 60 Random Glucose 95 Calcium 9.2 Preliminary micro results at discharge 04/07/24 17:37 Blood Culture - Preliminary Blood - Venous No growth after 48 hours. 04/07/24 17:12 Blood Culture - Preliminary Blood - Venous No growth after 48 hours. Imaging Venous US: Radiologist's impression: arterial US IMPRESSION: 1. Negative for right lower extremity deep vein thrombosis. Discharge Plan Discharge Anticipated Discharge Date/Time: 04/10/24 10:41 Patient Disposition: Home Health Service Discharge Diagnosis: Chronic wound with Cellulitis [facility]errals: [facility] [Other] - 1 Week Fitz Espinoza PA [Primary Care Provider] - 1 Week Discharge Medications: New doxycycline monohydrate 100 mg capsule 100 mg PO BID Qty: 14 0RF Continued gabapentin 600 mg tablet 600 mg PO TID meloxicam 7.5 mg tablet 7.5 mg PO DAILY PRN (Reason: Pain) albuterol sulfate 90 mcg/actuation HFA aerosol inhaler 2 puff inhalation Q6H PRN (Reason: SOB) lidocaine 5 % ointment 1 appl topical QID PRN (Reason: Pain) ibuprofen 800 mg tablet 800 mg PO TID PRN (Reason: Pain) Discharge Orders: Discharge Order (Routine); Ordered 04/10/24 Ordered By: Yves Lee Diet: Advance to usual diet Activity on Discharge: As tolerated Stand Alone Forms: Patient Portal Discharge page Print Language: Upper Sorbian Activity Restrictions/Additional Instructions: WOund care: RLE wound clean with saline, gauze, wet to dry gauze and cover with kerlix. use Abd pad if needed. Wrap with RYAN wrap daily as tolerated. Care Plan Goals: Doxycycline two times a day Wound care at home Follow with wound center Health Concerns: Chronic wound Cellulitis Plan of Treatment: Doxycycline Wound care Assessment: as above Patient Instructions: Ceftriaxone (By injection), Vancomycin (By injection), Cellulitis (GEN)
--- NOTE | 2024-04-25 14:23 | P.CDIM_ITS ---
PROVIDER RESPONSE TEXT: To clarify, the appropriate diagnosis supported by the clinical indicators: Chronic regional pain syndrome, type 1 QUERY TEXT: PHYSICIAN'S DOCUMENTATION REQUEST Date of Query: 04/22/2024 07:42 AM EST Patient Name: Amanda uLnd Admit Date: 04/08/2024 Dear Yves Lee MD, A review of the medical record indicates additional documentation may be needed. Please review below and update the documentation accordingly. Clinical Indicators: Complex regional pain syndrome Continue gabapentin The following diagnoses or signs and symptoms were noted in the patient record: patient was admitted and treated with IV antibiotic for acute on chronic right lower extremity cellul itis Based on the above, could you clarify the appropriate diagnosis, if significant, that supports the ab ove abnormalities and additional evaluation, monitoring, and/or treatment rendered: Chronic regional pain syndrome, type 1 Chronic regional pain syndrome, type 2 Other (explain) Clinically unable to determine (explain) Thank you, Fidelina Barr RN Use of terms such as suspected, likely, concern for, or probable (associated with a specific diagnosi s that is being evaluated, monitored, or treated as if it exists) are acceptable and can be coded in the inpatient se tting, when documented at the time of discharge. Please use your independent medical judgment in providing your response. THIS QUERY IS PART OF THE PERMANENT MEDICAL RECORD
--- NOTE | 2024-04-26 07:51 | P.CDIM_ITS ---
PROVIDER RESPONSE TEXT: To clarify, the appropriate diagnosis supported by the clinical indicators: Complex Regional Pain Syndrome, type 1 QUERY TEXT: PHYSICIAN'S DOCUMENTATION REQUEST Date of Query: 04/26/2024 07:35 AM EST Patient Name: Amanda Lund Admit Date: 04/08/2024 Dear Yves Lee MD, A review of the medical record indicates additional documentation may be needed. Please review below and update the documentation accordingly. Clinical Indicators: Complex regional pain syndrome Continue gabapentin The following diagnoses or signs and symptoms were noted in the patient record: patient was admitted and treated with IV antibiotic for acute on chronic right lower extremity cellul itis Based on the above, could you clarify the appropriate diagnosis, if significant, that supports the ab ove abnormalities and additional evaluation, monitoring, and/or treatment rendered: Complex Regional Pain Syndrome, type 1 Complex Regional Pain Syndrome, type 2 Other (explain) Clinically unable to determine (explain) Thank you, Fidelina Barr RN Use of terms such as suspected, likely, concern for, or probable (associated with a specific diagnosi s that is being evaluated, monitored, or treated as if it exists) are acceptable and can be coded in the inpatient se tting, when documented at the time of discharge. Please use your independent medical judgment in providing your response. THIS QUERY IS PART OF THE PERMANENT MEDICAL RECORD
== END 2024-04-10 12:20 | disposition home health service (06) | DRG 603 ==
LOC: HO.ED 19:27 → HO.EDOVER 20:48 → HO.S3 04-08 09:55
PROVIDERS: Registered Nurse Emergency; Admitting Provider Internal Medicine; Emergency Provider Emergency Medicine; PCP Physician Assistant Medical; Visit Provider Student in an Organized Health Care Education/Training Program
DX: L03.115 Cellulitis of right lower limb (principal); G90.521 Complex regional pain syndrome I of right lower limb; F17.210 Nicotine dependence, cigarettes, uncomplicated; Z71.6 Tobacco abuse counseling; Z79.899 Other long term (current) drug therapy
CPT/HCPCS: 36415; 73590; 80048; 80053; 82565; 83605; 85025; 85610; 85652; 86140; 87040; 93005; 93926; 93971; 99285; J0696; J1650; J2270; J2405; J3371

== ENCOUNTER → 2024-04-07 16:43 | Outpatient (BNV) | payer MEDICARE, BC, SELFPAY | PROVIDERS: Admitting Provider Internal Medicine; Emergency Provider Emergency Medicine; PCP Physician Assistant Medical; Visit Provider Internal Medicine | DX: I73.9 Peripheral vascular disease, unspecified (principal); F17.210 Nicotine dependence, cigarettes, uncomplicated; L03.115 Cellulitis of right lower limb | CPT/HCPCS: 93010 ==

== ENCOUNTER → 2024-04-07 17:49 | Outpatient (BNV) | payer MEDICARE, BC, SELFPAY | PROVIDERS: PCP Physician Assistant Medical; Visit Provider Specialist | DX: I73.9 Peripheral vascular disease, unspecified (principal); M79.605 Pain in left leg | CPT/HCPCS: 73590; 93926; 93971 ==

== ENCOUNTER 2024-04-07 20:28 | Outpatient (BNV) | payer MEDICARE, BC, SELFPAY | END 2024-04-08 15:09 | PROVIDERS: Admitting Provider Internal Medicine; Emergency Provider Emergency Medicine; PCP Physician Assistant Medical; Visit Provider Radiology Diagnostic Radiology | DX: I73.9 Peripheral vascular disease, unspecified (principal) | CPT/HCPCS: 93926 ==

== ENCOUNTER → 2024-04-07 20:28 | Outpatient (BNV) | payer MEDICARE, BC, SELFPAY | PROVIDERS: Admitting Provider Internal Medicine; Emergency Provider Emergency Medicine; PCP Physician Assistant Medical; Visit Provider Surgery | DX: I73.9 Peripheral vascular disease, unspecified (principal) | CPT/HCPCS: 99222; 99231 ==

== ENCOUNTER → 2024-04-07 20:28 | Outpatient (BNV) | payer MEDICARE, BC, SELFPAY | PROVIDERS: Admitting Provider Internal Medicine; Emergency Provider Emergency Medicine; PCP Physician Assistant Medical; Visit Provider Surgery Vascular Surgery | DX: I73.9 Peripheral vascular disease, unspecified (principal) | CPT/HCPCS: 99222 ==

== ENCOUNTER → 2024-04-07 20:28 | Outpatient (BNV) | payer MEDICARE, BC, SELFPAY | PROVIDERS: Admitting Provider Internal Medicine; Emergency Provider Emergency Medicine; PCP Physician Assistant Medical; Visit Provider Student in an Organized Health Care Education/Training Program | DX: L03.115 Cellulitis of right lower limb (principal); T14.8XXA Other injury of unspecified body region, initial encounter | CPT/HCPCS: 99223; 99232; 99233 ==

== ENCOUNTER 2025-02-02 23:10 | Emergency (ER) | payer MEDICARE, BC, SELFPAY ==
--- OUTSIDE RECORDS SUMMARY | 2025-01-27 12:00 | XMS_ITS | Encounter Summary ---
Author Organization [facility] Address [address] [place] [address] Care Team Providers Care Plate Embosser Name Role Phone Alexis Fitz HOFFMAN Primary Care Provider [phone] Reason for Visit * Reason Comments Wound Care Encounter Details Date Type Department Care Team (Late st Contact Info) Description 01/27/2025 1:00 PM EDT Office Visit [facility] [address] [place] [id number] Curtis High MD [address] [place] [address] PAD (peripheral artery disease) ([facility] V24) (Primary Dx); 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 (CMS/HCC V24, CMS/HCC V28) Social History Tobacco Use Types Packs/Day Years Used Date Smoking Tobacco: Every Day Cigarettes Smokeless Tobacco: Never Alcohol Use Standard Drinks/Week Comments Never 0 (1 standard drink = 0.6 oz pur e alcohol) Interpersonal Safety Answer Date Record ed Physical Abuse Unrecognized value 09/22/2024 Verbal Abuse Unrecognized value 09/22/2024 Comments Unknown Sex and Gender Information Value Date Recorded Sex Assigned at Not on file Legal Sex Female 2:46 PM EST Gender Identity Not on file Sexual Orientation Not on file documented as of this encounter Last Filed Vital Signs Vital Sign Reading Time Taken Comments Blood Pressure 128/41 01/27/2025 1:08 PM EDT Pulse 88 01/27/2025 1:08 PM EDT Temperature 36.7 C (98.1 F) 01/27/2025 1:08 PM EDT Respiratory Rate 18 01/27/2025 1:08 PM EDT Oxygen Saturation - - Inhaled Oxygen Concentration - - Weight - - Height - - Body Mass Index - - documented in this encounter Ordered Prescriptions Prescription Sig Dispense Quantity Refills Last Filled Start Date End Date ciprofloxacin (Cipro) 500 mg tablet Take 1 tablet (500 mg total) by mouth 2 (two) times a day for 10 days. 20 each 01/27/2025 lidocaine (XYLOCAINE) 4 % external solution Apply topically 1 (one) time for 1 dose. 50 mL 6 01/27/2025 documented in this encounter Progress Notes * Dinora Moreira RN - 01/27/2025 1:00 PM EDT PROVIDER ORDERS Go to ER if you are presenting with fever, chills, increased redness, pain, swelling, warmth aroundwound area and/or foul smelling odor. If you have any questions or concerns, please contact the [facility] [place] at . Highly recommend you be seen at ER for evaluation of infection, high risk of sepsis, limb loss and . Follow up(s)/ Referrals: Others: Pt declining follows ups with vascular and infectious disease Senior Living: N/A Additional Orders: Take your antibiotic as prescribed, Patient to probiotics or live cultured yogurt daily while taking your antibiotic, Increase protein in your diet to help promote wound healing Lidocaine Orders: Apply Lidocaine 4% Topical Solution prior to debridements at Wound Care appointments Prescription for lidocaine sent to your pharmacy Edema Control: (If your compression wrap(s) feel to tight, please elevate your leg(s) about heart level. If your wrap(s) are becoming painful and/or you loose sensation of toes/ are having toe discoloration (a change from your baseline), please remove / unwrap compression and notify [facility] at . ) N/A Offloading: N/A Negative Pressure Wound Therapy: (If wound vac is off/non functioning for more than 2 hours, please remove vac dressing, apply a wetto dry dressing and notify your home care agency) N/A Cellular/Tissue Based Products: N/A Bathing / Showering / Hygiene: May shower with protection but DO NOT get wound dressing(s) wet. Protect dressing(s) with water repellant cover ( for example- large plastic bag or cast bag) and then may take shower. Non-wound Condition/ Other Skin Care: Moisturize skin daily, avoiding wound area Wound Location(s): Wound #1 (Right lower leg): Cleanser: Other: If you can get the Lidocaine try using the acetic acid if not you can use Vashe orNormal Saline Periwound: Apply Zinc Oxide to sera wound (as needed for excessive moisture or irritation around the wound) Topical: N/A Primary dressing: Hydrofiber with silver (Aquacel AG)- cut to fit to wound bed, Curad Oil Emulsion Dressing- apply to wound bed- apply adaptic first with alginate over top Secondary dressinx4 woven gauze (non-sterile), 5x9 ABD pad, Other: Drawtex- you can try puttingit under the ABD pad to wick away the moisture and use the ABD to catch any excess drainage. 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 [facility] at [address] [address] Office Visit Visit Date: 01/27/2025 Patient Name: Amanda Lund Date of : 1945 PCP: DALTON Castorena HPI: Amanda Lund is a 78 y.o. female who presents to the to the wound care center for Tatian of ongoing right lower extremity wounds. Patient was recently admitted at [facility] on 06/23/2024 for ongoing right lower leg wound thought to be secondary to cat scratch. CTA ultimately demonstrated occlusion of the distal right SFA with popliteal reconstitution and three-vessel runoff who is now status post right lower extremity angio with angioplasty of the right SFA and multiple episodes of right lower leg wound debridement. Notably had Quan grafting of the lower leg wound with wound VAC placement. Wound VAC was used in early June. Patient was recently put oral Bactrim by PCP for increasing redness of the right lower leg. Patient has been using topical antibiotic ointment to t he wounds at this time. Patient is accompanied by her granddaughter who is her primary caregiver atthis time. Granddaughter has been encouraging the patient to go to the hospital which she has been resistant to. Patient states some increasing discomfort in the right lower leg. Patient is still a smoker at this time. Patient denies fever chills. 01/27/25: Amanda is here for follow-up of her right lower leg ulcers that now cover essentially all of herlower leg. She reports that there has been increased drainage and some increasing discomfort with dressing changes. She did appreciate some improvement with lidocaine prescribed 2 weeks ago. Currently using acetic acid wash with alginate topically. No fevers or chills. 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 Ulcers are worsening. We discussed goals of care with her and she reiterates that she would like to be kept comfortable and do what we can here. She declined vascular consultation or referral to the emergency department. She will take a course of antibiotics and continue with lidocaine topically for pain control. Will continue with Adaptic and alginate with acetic acid washes. Her granddaughterwho is her caregiver has requested that she follow-up in the wound care center on a weekly basis. All questions were answered to her satisfaction. She was counseled regarding my impressions, instructions for management, and the importance of compliance with treatment. Follow up in about 1 week (around 02/03/2025). >>>>>>>>>>>>>>>>>>>>>>>>>>>>>>>>>>>>>>>>>>>>>>>>>>> Vital Signs: Visit Vitals BP (!) 128/41 (BP Location: Right arm, Patient Position: Sitting, BP Cuff Size: Adult) Pulse 88 Temp 36.7 ??C (98.1 ??F) (Temporal) Resp 18 Review of Systems: Review of Systems Constitutional: Negative for chills and fever. Skin: Positive for wound. PHYSICAL EXAM Physical Exam Vitals and nursing note reviewed. Constitutional: Appearance: Normal appearance. She is not ill-appearing. Pulmonary: Effort: Pulmonary effort is normal. Skin: Comments: Extensive ulcers covering most of the right lower leg and foot. Wound bed is pale with some discolored slough and exudate over the superior portion. Exudate has a greenish-blue tinge. Thereis exposed tendon on the lateral aspect. There is also greenish blue-tinged macerated tissue on the2nd and 3rd dorsal toes. Foot is cool to the touch. There is induration extending from the mid lower leg to the foot. WOUND ASSESSMENT If photograph of wound not visible on this note, please check under Media tab. Wound Arterial Ulcer 09/21/24 Leg Right;Lower (Active) Date First Assessed/Time First Assessed: 09/21/24 1254 Primary Wound Type: (c) Arterial Ulcer WoundApproximate Age at First Assessment (Weeks): 60 weeks Hand Hygiene Completed: Yes Location: Leg Wound Location Orientation: Right;Lower Wound De... Assessments 09/21/2024 12:55 PM 01/27/2025 1:22 PM Wound Image Wound Bed Tissue Assessment Sloughing Sloughing;Eschar;Granulation Sera-Wound Assessment Moist ;Scarred;Red Macerated Wound Length (cm) 29 cm 23 cm Wound Width (cm) 25 cm 25 cm Wound Surface Area (cm^2) 725 cm^2 451.6 cm^2 Wound Depth (cm) 0.3 cm 0.5 cm Wound Volume (cm^3) 217.5 cm^3 150.535 cm^3 Wound Healing % -- 31 Drainage Description Serosanguineous [place];Green;Yellow Drainage Amount Moderate Large Treatments Cleansed;Other (Comment) Cleansed Dressing Xeroform Abdominal dressing;Bassam Dressing Status Removed Removed Wound Bed Granulation (%) 0 % 5 % Wound Bed Epithelialization (%) -- 0 % Wound Bed Slough (%) 100 % 95 % Wound Bed Eschar (%) 0 % 0 % Tunneling 0 cm -- Undermining 0 cm 0 cm Edges Poorly defined Attached edges;Well-defined edges Non-staged Wound Description Full thickness Full thickness Active Orders Date Order Priority Status Authorizing Provider 01/27/25 1407 Debridement Routine Active Curtis High MD 01/27/25 1348 Wound Care Supplies Routine Active Curtis High MD - Wound Care Supplies: [employer] (hydro-fiber) (Drawtex 8x8) - Wound Care Supplies: Other - Wound Care Supplies: Kerlix (large) - Wound Care Supplies: Abdominal Pads - Wound Care Supplies: Medipore tape - Wound Care Supplies: Normal saline for irrigation (sterile) - 500ml - Wound Care Supplies: Gauze 4x4 (non sterile) - Wound Care Supplies: Exam gloves - Wound Care Supplies: Adaptic - Wound Care Supplies: Vashe Wound Solution - Abdominal Pad size: 8x8 - Adaptic Size: 3x16 - Supply:: Please send largest Aquacel AG you have. Pt's wound is [id number] - Days Supply:: 30 - Wound Care Refill Qty:: 2 - Debridement Performed:: Yes - Wound Drainage:: Large - Frequency of Dressing Change: daily - Face to face evaluation was performed on: 01/27/2025 01/18/25 1545 Wound Care Supplies Routine Active DALTON Viera - Wound Care Supplies: Abdominal Pads - Wound Care Supplies: Exam gloves - Abdominal Pad size: 5x9 - Days Supply:: 30 - Wound Care Refill Qty:: 1 - Debridement Performed:: Yes - Wound Drainage:: Copious - Frequency of Dressing Change: daily - Further DME Specification:: notify pt of any cost to patient priopr to filling order - Face to face evaluation was performed on: 01/13/2025 12/30/24 1335 Wound Care Supplies Routine Active DALTON Viera - Wound Care Supplies: Other (Drawtex 8x8) - Wound Care Supplies: Adaptic - Adaptic Size: 3x8 - Days Supply:: 30 - Debridement Performed:: Yes - Wound Drainage:: Large - Frequency of Dressing Change: daily - Face to face evaluation was performed on: 12/30/2024 12/23/24 1311 Wound Care Supplies Routine Active DALTON Viera - Wound Care Supplies: Normal saline for irrigation (sterile) - 500ml - Wound Care Supplies: Exam gloves - Wound Care Supplies: Aquacel AG (hydro-fiber) - Days Supply:: 30 - Wound Care Refill Qty:: 1 - Debridement Performed:: Yes - Wound Drainage:: Copious (moderate- copious) - Dispense As Written (JUAN DIEGO)?: Yes - Frequency of Dressing Change: every other day - Further DME Specification:: notify pt of any cost to pt prior to filling order - Face to face evaluation was performed on: 12/23/2024 12/16/24 1625 Wound Care Supplies Routine Active DALTON Viera - Wound Care Supplies: Hydrofera Blue Ready - Wound Care Supplies: Abdominal Pads - Wound Care Supplies: Kerlix (large) - Wound Care Supplies: Medipore tape - Wound Care Supplies: Normal saline for irrigation (sterile) - 500ml - Wound Care Supplies: Gauze 4x4 (non sterile) - Abdominal Pad size: 5x9 - Hydrofera Blue Ready Size: 8x8 - Days Supply:: 30 - Debridement Performed:: Yes - Wound Drainage:: Large - Face to face evaluation was performed on: 12/16/2024 11/23/24 1349 Wound Care Supplies Routine Active DALTON Viera - Wound Care Supplies: Other (4x5 (large size pad) medihoney alginate) - Debridement Performed:: Yes - Wound Drainage:: Moderate - Dispense As Written (JUAN DIEGO)?: Yes - Frequency of Dressing Change: every other day - Face to face evaluation was performed on: 11/23/2024 - Additional providers who completed a face to face evaluation of the patient:: DUSUSAN Aleshia 11/17/24 1345 Wound Care Supplies Routine Active DALTON Viera - Wound Care Supplies: Abdominal Pads - Wound Care Supplies: Normal saline for irrigation (sterile) - 500ml - Wound Care Supplies: Medipore tape - Wound Care Supplies: Exam gloves - Abdominal Pad size: 5x9 - Days Supply:: 30 - Debridement Performed:: Yes - Wound Drainage:: Moderate - Frequency of Dressing Change: every other day - Further DME Specification:: Medium size for gloves - Face to face evaluation was performed on: 11/17/2024 11/09/24 1325 Wound Care Supplies Routine Active DALTON Viera - Wound Care Supplies: Hydrofera Blue Ready - Hydrofera Blue Ready Size: 8x8 - Days Supply:: 30 - Debridement Performed:: Yes - Wound Drainage:: Moderate - Dispense As Written (JUAN DIEGO)?: Yes - Frequency of Dressing Change: every other day - Further DME Specification:: multiple wounds, please see sizes to decide which one will be best - Face to face evaluation was performed on: 11/09/2024 - Additional providers who completed a face to face evaluation of the patient:: FLORIAN SUSAN Monk 10/24/24 1526 Wound Care Supplies Routine Active Charles Davenport MD - Wound Care Supplies: Abdominal Pads (4 kerlix / 1 paper tape) - Wound Care Supplies: Gauze 4x4 (non sterile) - Wound Care Supplies: Other - Wound Care Supplies: Normal saline for irrigation (sterile) - 500ml - Abdominal Pad size: 5x9 - Days Supply:: 30 - Debridement Performed:: Yes - Wound Drainage:: Moderate - Dispense As Written (JUAN DIEGO)?: Yes - Frequency of Dressing Change: daily - Further DME Specification:: See all supplies in comment box - Face to face evaluation was performed on: 10/24/2024 - Additional providers who completed a face to face evaluation of the patient:: CHARLES DAVENPORT 10/14/24 1408 Wound Care Supplies Routine Active ADLTON Viera - Wound Care Supplies: Xeroform - Xeroform Size: 5x9 - Days Supply:: 30 - Debridement Performed:: Yes - Wound Drainage:: Moderate - Frequency of Dressing Change: daily - Face to face evaluation was performed on: 10/14/2024 09/21/24 1333 Wound Care Supplies Routine Active DALTON Viera - Wound Care Supplies: Normal saline for irrigation (sterile) - 500ml (4x5 alginate ag / 6x9 exudrypad / 4 bassam wrap / 1 paper tape) - Wound Care Supplies: Gauze 4x4 (non sterile) - Wound Care Supplies: Other - Wound Care Supplies: Hydrofera Blue Ready - Hydrofera Blue Ready Size: 2.5x2.5 - Days Supply:: 30 - Debridement Performed:: Yes - Wound Drainage:: Large - Dispense As Written (JUAN DIEGO)?: Yes - Frequency of Dressing Change: daily - Further DME Specification:: hydrofera blue for heel only, alginate ag for leg only. Please see measurements in notes for leg. Very large wound - Face to face evaluation was performed on: 09/21/2024 - Additional providers who completed a face to face evaluation of the patient:: SUSAN DU Orders Date Order Priority Status Authorizing Provider 01/13/25 1505 Debridement Arterial Ulcer (cluster) Right;Lower Leg Routine Completed DALTON Viera 01/06/25 1441 Debridement Arterial Ulcer (cluster) Right;Lower Leg Routine Completed Curtis High MD 12/30/24 1327 Debridement Arterial Ulcer (cluster) Right;Lower Leg Routine Completed DALTON Viera 12/23/24 1207 Debridement Arterial Ulcer (cluster) Right;Lower Leg Routine Completed DALTON Viera 12/01/24 1338 Debridement Arterial Ulcer (cluster) Right;Lower Leg Routine Completed DALTON Viera 11/17/24 1329 Debridement Arterial Ulcer (cluster) Right;Lower Leg Routine Completed DALTON Viera 11/09/24 1317 Debridement Arterial Ulcer (cluster) Right;Lower Leg Routine Completed DALTON Viera 10/14/24 1410 Debridement Arterial Ulcer (cluster) Right;Lower Leg Routine Completed DALTON Viera 09/26/24 1533 Wound dressing Every other day Routine Discontinued Graeme Beltran MD 09/26/24 1516 Wound dressing Every other day Routine Discontinued Graeme Beltran MD 09/26/24 0425 Wound dressing Daily Routine Discontinued Graeme Beltran MD 09/25/24 0535 Wound dressing Daily Routine Discontinued Graeme Beltran MD 09/24/24 0545 Wound dressing Daily Routine Discontinued Graeme Beltran MD 09/22/24 1635 Wound dressing Daily Routine Discontinued DALTON Abbasi 09/22/24 0027 Wound ostomy eval and treat 2 Wounds Associated Routine Completed Robbin Uriarte MD - Reason for Consult?: Ongoing care of lower extremity wounds 09/21/24 1333 Debridement Arterial Ulcer (cluster) Right;Lower Leg Routine Completed DALTON Viera Wound Pressure Injury 09/21/24 Heel Posterior;Right (Active) Date First Assessed/Time First Assessed: 09/21/24 1256 Primary Wound Type: Pressure Injury Wound Approximate Age at First Assessment (Weeks): 6 weeks Hand Hygiene Completed: Yes Location: Heel Wound Location Orientation: Posterior;Right Assessments 09/21/2024 12:57 PM 01/27/2025 1:25 PM Wound Image Wound Bed Tissue Assessment Sloughing -- Sera-Wound Assessment Scarred;Callused -- Wound Length (cm) 3.4 cm -- Wound Width (cm) 2.7 cm -- Wound Surface Area (cm^2) 9.18 cm^2 -- Wound Depth (cm) 0.6 cm -- Wound Volume (cm^3) 5.508 cm^3 -- Drainage Description Serous -- Drainage Amount Moderate -- Treatments Cleansed;Other (Comment) -- Dressing Status Removed -- Wound Bed Granulation (%) 0 % -- Wound Bed Slough (%) 100 % -- Wound Bed Eschar (%) 0 % -- Tunneling 0 cm -- Undermining 0 cm -- Edges Well-defined edges;Attached edges -- Pressure Injury Stage Stage 4 -- Active Orders Date Order Priority Status Authorizing Provider 01/18/25 1545 Wound Care Supplies Routine Active DALTON Viera - Wound Care Supplies: Abdominal Pads - Wound Care Supplies: Exam gloves - Abdominal Pad size: 5x9 - Days Supply:: 30 - Wound Care Refill Qty:: 1 - Debridement Performed:: Yes - Wound Drainage:: Copious - Frequency of Dressing Change: daily - Further DME Specification:: notify pt of any cost to patient priopr to filling order - Face to face evaluation was performed on: 01/13/2025 12/30/24 1335 Wound Care Supplies Routine Active DALTON Viera - Wound Care Supplies: Other (Drawtex 8x8) - Wound Care Supplies: Adaptic - Adaptic Size: 3x8 - Days Supply:: 30 - Debridement Performed:: Yes - Wound Drainage:: Large - Frequency of Dressing Change: daily - Face to face evaluation was performed on: 12/30/2024 12/23/24 1311 Wound Care Supplies Routine Active DALTON Viera - Wound Care Supplies: Normal saline for irrigation (sterile) - 500ml - Wound Care Supplies: Exam gloves - Wound Care Supplies: Aquacel AG (hydro-fiber) - Days Supply:: 30 - Wound Care Refill Qty:: 1 - Debridement Performed:: Yes - Wound Drainage:: Copious (moderate- copious) - Dispense As Written (JUAN DIEGO)?: Yes - Frequency of Dressing Change: every other day - Further DME Specification:: notify pt of any cost to pt prior to filling order - Face to face evaluation was performed on: 12/23/2024 12/16/24 1625 Wound Care Supplies Routine Active DALTON Viera - Wound Care Supplies: Hydrofera Blue Ready - Wound Care Supplies: Abdominal Pads - Wound Care Supplies: Kerlix (large) - Wound Care Supplies: Medipore tape - Wound Care Supplies: Normal saline for irrigation (sterile) - 500ml - Wound Care Supplies: Gauze 4x4 (non sterile) - Abdominal Pad size: 5x9 - Hydrofera Blue Ready Size: 8x8 - Days Supply:: 30 - Debridement Performed:: Yes - Wound Drainage:: Large - Face to face evaluation was performed on: 12/16/2024 11/23/24 1349 Wound Care Supplies Routine Active DALTON Viera - Wound Care Supplies: Other (4x5 (large size pad) medihoney alginate) - Debridement Performed:: Yes - Wound Drainage:: Moderate - Dispense As Written (JUAN DIEGO)?: Yes - Frequency of Dressing Change: every other day - Face to face evaluation was performed on: 11/23/2024 - Additional providers who completed a face to face evaluation of the patient:: SUSAN DU 11/17/24 1345 Wound Care Supplies Routine Active DALTON Viera - Wound Care Supplies: Abdominal Pads - Wound Care Supplies: Normal saline for irrigation (sterile) - 500ml - Wound Care Supplies: Medipore tape - Wound Care Supplies: Exam gloves - Abdominal Pad size: 5x9 - Days Supply:: 30 - Debridement Performed:: Yes - Wound Drainage:: Moderate - Frequency of Dressing Change: every other day - Further DME Specification:: Medium size for gloves - Face to face evaluation was performed on: 11/17/2024 11/09/24 1325 Wound Care Supplies Routine Active DALTON Viera - Wound Care Supplies: Hydrofera Blue Ready - Hydrofera Blue Ready Size: 8x8 - Days Supply:: 30 - Debridement Performed:: Yes - Wound Drainage:: Moderate - Dispense As Written (JUAN DIEGO)?: Yes - Frequency of Dressing Change: every other day - Further DME Specification:: multiple wounds, please see sizes to decide which one will be best - Face to face evaluation was performed on: 11/09/2024 - Additional providers who completed a face to face evaluation of the patient:: SUSAN DU 10/24/24 1526 Wound Care Supplies Routine Active Charles Davenport MD - Wound Care Supplies: Abdominal Pads (4 kerlix / 1 paper tape) - Wound Care Supplies: Gauze 4x4 (non sterile) - Wound Care Supplies: Other - Wound Care Supplies: Normal saline for irrigation (sterile) - 500ml - Abdominal Pad size: 5x9 - Days Supply:: 30 - Debridement Performed:: Yes - Wound Drainage:: Moderate - Dispense As Written (JUAN DIEGO)?: Yes - Frequency of Dressing Change: daily - Further DME Specification:: See all supplies in comment box - Face to face evaluation was performed on: 10/24/2024 - Additional providers who completed a face to face evaluation of the patient:: CHARLES DAVENPORT 09/21/24 1333 Wound Care Supplies Routine Active DALTON Viera - Wound Care Supplies: Normal saline for irrigation (sterile) - 500ml (4x5 alginate ag / 6x9 exudrypad / 4 bassam wrap / 1 paper tape) - Wound Care Supplies: Gauze 4x4 (non sterile) - Wound Care Supplies: Other - Wound Care Supplies: Hydrofera Blue Ready - Hydrofera Blue Ready Size: 2.5x2.5 - Days Supply:: 30 - Debridement Performed:: Yes - Wound Drainage:: Large - Dispense As Written (JUAN DIEGO)?: Yes - Frequency of Dressing Change: daily - Further DME Specification:: hydrofera blue for heel only, alginate ag for leg only. Please see measurements in notes for leg. Very large wound - Face to face evaluation was performed on: 09/21/2024 - Additional providers who completed a face to face evaluation of the patient:: SUSAN DU Orders Date Order Priority Status Authorizing Provider 01/13/25 1506 Debridement Pressure Injury Posterior;Right Heel Routine Completed DALTON Viera 12/30/24 1328 Debridement Pressure Injury Posterior;Right Heel Routine Completed DALTON Viera 12/23/24 1207 Debridement Pressure Injury Posterior;Right Heel Routine Completed DALTON Viera 12/09/24 1315 Debridement Pressure Injury Posterior;Right Heel Routine Completed DALTON Viera 12/01/24 1341 Debridement Pressure Injury Posterior;Right Heel Routine Completed DALTON Viera 11/23/24 1343 Debridement Pressure Injury Posterior;Right Heel Routine Completed DALTON Viera 11/17/24 1329 Debridement Pressure Injury Posterior;Right Heel Routine Completed DALTON Viera 11/09/24 1317 Debridement Pressure Injury Posterior;Right Heel Routine Completed DALTON Viera 10/14/24 1409 Debridement Pressure Injury Posterior;Right Heel Routine Completed DALTON Viera 09/26/24 1516 Wound dressing Daily Pressure Injury Heel Posterior;Right Routine Discontinued Graeme Banks MD 09/26/24 0425 Wound dressing Daily Routine Discontinued Graeme Beltran MD 09/25/24 0535 Wound dressing Daily Routine Discontinued Graeme Beltran MD 09/24/24 0545 Wound dressing Daily Routine Discontinued Graeme Beltran MD 09/22/24 1635 Wound dressing Daily Routine Discontinued DALTON Abbasi 09/22/24 0027 Wound ostomy eval and treat 2 Wounds Associated Routine Completed Robbin Uriarte MD - Reason for Consult?: Ongoing care of lower extremity wounds 09/21/24 1331 Debridement Pressure Injury Posterior;Right Heel Routine Completed DALTON iVera Wound Arterial Ulcer 09/26/24 Foot Right (Active) Date First Assessed/Time First Assessed: 09/26/24 1151 Primary Wound Type: Arterial Ulcer Location:Foot Wound Location Orientation: Right Assessments 09/26/2024 11:51 AM 01/13/2025 2:50 PM Wound Image Wound Bed Tissue Assessment -- Sloughing;Granulation Sera-Wound Assessment -- Macerated;Scarred Wound Length (cm) 10 cm 17.5 cm Wound Width (cm) 4 cm 14.7 cm Wound Surface Area (cm^2) 40 cm^2 202.04 cm^2 Wound Depth (cm) 0.2 cm 0.3 cm Wound Volume (cm^3) 8 cm^3 40.409 cm^3 Wound Healing % -- -405 Drainage Description -- Serous Drainage Amount -- Copious Dressing Status -- Removed Wound Bed Granulation (%) -- 0 % Wound Bed Epithelialization (%) -- 0 % Wound Bed Slough (%) -- 100 % Wound Bed Eschar (%) -- 0 % Tunneling -- 0 cm Undermining -- 0 cm Edges -- Attached edges Non-staged Wound Description -- Full thickness Active Orders Date Order Priority Status Authorizing Provider 01/18/25 1545 Wound Care Supplies Routine Active DALTON Viera - Wound Care Supplies: Abdominal Pads - Wound Care Supplies: Exam gloves - Abdominal Pad size: 5x9 - Days Supply:: 30 - Wound Care Refill Qty:: 1 - Debridement Performed:: Yes - Wound Drainage:: Copious - Frequency of Dressing Change: daily - Further DME Specification:: notify pt of any cost to patient priopr to filling order - Face to face evaluation was performed on: 01/13/2025 12/30/24 1335 Wound Care Supplies Routine Active DALTON Viera - Wound Care Supplies: Other (Drawtex 8x8) - Wound Care Supplies: Adaptic - Adaptic Size: 3x8 - Days Supply:: 30 - Debridement Performed:: Yes - Wound Drainage:: Large - Frequency of Dressing Change: daily - Face to face evaluation was performed on: 12/30/2024 12/23/24 1311 Wound Care Supplies Routine Active DALTON Viera - Wound Care Supplies: Normal saline for irrigation (sterile) - 500ml - Wound Care Supplies: Exam gloves - Wound Care Supplies: Aquacel AG (hydro-fiber) - Days Supply:: 30 - Wound Care Refill Qty:: 1 - Debridement Performed:: Yes - Wound Drainage:: Copious (moderate- copious) - Dispense As Written (JUAN DIEGO)?: Yes - Frequency of Dressing Change: every other day - Further DME Specification:: notify pt of any cost to pt prior to filling order - Face to face evaluation was performed on: 12/23/2024 12/16/24 1625 Wound Care Supplies Routine Active DALTON Viera - Wound Care Supplies: Hydrofera Blue Ready - Wound Care Supplies: Abdominal Pads - Wound Care Supplies: Kerlix (large) - Wound Care Supplies: Medipore tape - Wound Care Supplies: Normal saline for irrigation (sterile) - 500ml - Wound Care Supplies: Gauze 4x4 (non sterile) - Abdominal Pad size: 5x9 - Hydrofera Blue Ready Size: 8x8 - Days Supply:: 30 - Debridement Performed:: Yes - Wound Drainage:: Large - Face to face evaluation was performed on: 12/16/2024 11/23/24 1349 Wound Care Supplies Routine Active DALTON Viera - Wound Care Supplies: Other (4x5 (large size pad) medihoney alginate) - Debridement Performed:: Yes - Wound Drainage:: Moderate - Dispense As Written (JUAN DIEGO)?: Yes - Frequency of Dressing Change: every other day - Face to face evaluation was performed on: 11/23/2024 - Additional providers who completed a face to face evaluation of the patient:: SUSAN DU 11/17/24 1345 Wound Care Supplies Routine Active DALTON Viera - Wound Care Supplies: Abdominal Pads - Wound Care Supplies: Normal saline for irrigation (sterile) - 500ml - Wound Care Supplies: Medipore tape - Wound Care Supplies: Exam gloves - Abdominal Pad size: 5x9 - Days Supply:: 30 - Debridement Performed:: Yes - Wound Drainage:: Moderate - Frequency of Dressing Change: every other day - Further DME Specification:: Medium size for gloves - Face to face evaluation was performed on: 11/17/2024 10/24/24 1526 Wound Care Supplies Routine Active Charles Davenport MD - Wound Care Supplies: Abdominal Pads (4 kerlix / 1 paper tape) - Wound Care Supplies: Gauze 4x4 (non sterile) - Wound Care Supplies: Other - Wound Care Supplies: Normal saline for irrigation (sterile) - 500ml - Abdominal Pad size: 5x9 - Days Supply:: 30 - Debridement Performed:: Yes - Wound Drainage:: Moderate - Dispense As Written (JUAN DIEGO)?: Yes - Frequency of Dressing Change: daily - Further DME Specification:: See all supplies in comment box - Face to face evaluation was performed on: 10/24/2024 - Additional providers who completed a face to face evaluation of the patient:: CHARLES DAVENPORT 10/14/24 1408 Wound Care Supplies Routine Active DALTON Viera - Wound Care Supplies: Xeroform - Xeroform Size: 5x9 - Days Supply:: 30 - Debridement Performed:: Yes - Wound Drainage:: Moderate - Frequency of Dressing Change: daily - Face to face evaluation was performed on: 10/14/2024 Inactive Orders Date Order Priority Status Authorizing Provider 12/30/24 1328 Debridement Arterial Ulcer Right Foot Routine Completed DALTON Viera 12/23/24 1208 Debridement Arterial Ulcer Anterior;Right Foot Routine Completed DALTON Viera 12/01/24 1341 Debridement Other (comment) (Infection) Anterior;Right Foot Routine Completed DALTON Sotomayor 11/23/24 1344 Debridement Other (comment) (Infection) Anterior;Right Foot Routine Completed DALTON Sotomayor 11/17/24 1330 Debridement Other (comment) (Infection) Anterior;Right Foot Routine Completed DALTON Sotomayor 10/24/24 1506 Debridement Other (comment) (Infection) Anterior;Right Foot Routine Completed Charles Davenport MD 09/26/24 1533 Wound dressing Every other day Routine Discontinued Graeme Beltran MD 09/26/24 1516 Wound dressing Every other day Routine Discontinued Graeme Beltran MD Pertinent Labs: Albumin Date Value Ref Range Status 10/03/2024 1.9 (L) 3.2 - 5.0 g/dL Final WBC Date Value Ref Range Status 10/10/2024 7.2 4.8 - 10.8 K/mcL Final WBC, Urine Date Value Ref Range Status 09/21/2024 2.1 0 - 4 /HPF Final Procedure Note: Debridement Arterial Ulcer (cluster) Right;Lower Leg Performed by: Curtis High MD Authorized by: Curtis High MD Associated wounds: Wound Arterial Ulcer 09/21/24 Leg Right;Lower Consent: Consent obtained: Verbal Consent given by: Patient Risks discussed: Yes Time out: Immediately prior to the procedure a time out was called Debridement Details: Performed by: Physician Type: surgical Level: subcutaneous tissue Pain control: Lidocaine 4% Pain control administration: topical anesthesia Severity of Tissue Pre Debridement: Necrosis of muscle Severity of Tissue Post Debridement: Necrosis of muscle Time taken: 01/27/2025 1:22 PM Length (cm): 23 Width (cm): 25 Depth (cm): 0.5 Area (cm^2): 451.6 Time taken: 01/27/2025 1:23 PM Length (cm): 23 Width (cm): 25 Depth (cm): 0.5 Percent Debrided (%): 25 Surface Area (cm^2): 575 Area Debrided (cm^2): 143.75 Volume (cm^3): 287.5 Tissue and other material debrided: dermis, epidermis and subcutaneous tissue Devitalized tissue debrided: slough Instrument: Curette Amount of bleeding: small Hemostasis obtained with: Pressure Procedural pain: 0 Post-procedural pain: 0 Response to treatment: Procedure was tolerated well PROVIDER ORDERS Patient Instructions PROVIDER ORDERS Go to ER if you are presenting with fever, chills, increased redness, pain, swelling, warmth aroundwound area and/or foul smelling odor. If you have any questions or concerns, please contact the [facility] at . Highly recommend you be seen at ER for evaluation of infection, high risk of sepsis, limb loss and . Follow up(s)/ Referrals: Others: Pt declining follows ups with vascular and infectious disease Senior Living: N/A Additional Orders: Take your antibiotic as prescribed, Patient to probiotics or live cultured yogurt daily while taking your antibiotic, Increase protein in your diet to help promote wound healing Lidocaine Orders: Apply Lidocaine 4% Topical Solution prior to debridements at Wound Care appointments Prescription for lidocaine sent to your pharmacy Edema Control: (If your compression wrap(s) feel to tight, please elevate your leg(s) about heart level. If your wrap(s) are becoming painful and/or you loose sensation of toes/ are having toe discoloration (a change from your baseline), please remove / unwrap compression and notify [facility] at . ) N/A Offloading: N/A Negative Pressure Wound Therapy: (If wound vac is off/non functioning for more than 2 hours, please remove vac dressing, apply a wetto dry dressing and notify your home care agency) N/A Cellular/Tissue Based Products: N/A Bathing / Showering / Hygiene: May shower with protection but DO NOT get wound dressing(s) wet. Protect dressing(s) with water repellant cover ( for example- large plastic bag or cast bag) and then may take shower. Non-wound Condition/ Other Skin Care: Moisturize skin daily, avoiding wound area Wound Location(s): Wound #1 (Right lower leg): Cleanser: Other: If you can get the Lidocaine try using the acetic acid if not you can use Vashe orNormal Saline Periwound: Apply Zinc Oxide to sera wound (as needed for excessive moisture or irritation around the wound) Topical: N/A Primary dressing: Hydrofiber with silver (Aquacel AG)- cut to fit to wound bed, Curad Oil Emulsion Dressing- apply to wound bed- apply adaptic first with alginate over top Secondary dressinx4 woven gauze (non-sterile), 5x9 ABD pad, Other: Drawtex- you can try puttingit under the ABD pad to wick away the moisture and use the ABD to catch any excess drainage. Secure with: 4 conforming gauze roll , 1 paper tape Compression Therapy: N/A Dressing Change Frequency: Daily Wound #2 (Right posterior heel): Converged with leg wound Wound #3 (Right Anterior Foot): Converged with leg wound 01/27/2025 2:08 PM EDT Curtis High MD * Viviana Burch RN - 01/27/2025 1:00 PM EDT Discharge Patient directed to check out at front desk associate and collect visit summary with wound care directions and book follow up as directed. Dressings applied: Wound #1 (Right lower leg): Cleanser: Vashe, Normal Saline Periwound:Zinc Oxide to sera wound Primary dressing: Hydrofiber with silver (Aquacel AG) Secondary dressinx4 woven gauze, 5x9 ABD pad, Secure with: 4 conforming gauze roll , 1 paper tape Dressing technique was demonstrated and explained. Patient questions answered. Pt discharge from wound care center without issue or incidence. documented in this encounter Plan of Treatment Upcoming Encounters Date Type Department Care Team (Late st Contact Info) Description 02/03/2025 2:45 PM EST Clinical Support [facility] [address] [place] [address] documented as of this encounter Goals Goal Patient Goal Type Associated Problems Recent Progress Patient-Stated? Author Decrease Wound Volume by X% by date (in notes) Care Plan Impaired Tissue Worsening( 1:49 PM EDT) Mary Alice Cavanaugh RN Note: 01/13/25- Plan of care to promote comfort, pt declining advanced treatment and referrals Patient and Caregiver Understand Wound Care Education Care Plan Impaired Tissue On track( 1:49 PM EDT) Mary Alice Cavanaugh RN Wound volume breakdown reduced by X% by week 4 Care Plan Impaired Tissue No Mary Alice Morillo RN Wound volume breakdown reduced by X% by week 8 Care Plan Impaired Tissue No Mary Alice Morillo RN Wound volume breakdown reduced by X% by week 12 Care Plan Impaired Tissue Mary Alice Cavanaugh RN Quit using tobacco (cigarettes, smokeless, etc) Care Plan Education needed on impact of smoking on wound Mary Alice Cavanaugh RN Reduce tobacco use (cigarettes, smokeless, etc) Care Plan Education needed on impact of smoking on wound No Mary Alice Morillo RN Decrease Wound Volume by X% by date (in notes) Care Plan Education needed on impact of smoking on wound Mary Alice Cavanaugh RN Patient and Caregiver Understand Wound Care Education Care Plan Education needed related to ulceration/compr omised skin integrity. 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 ([facility] V24, [facility] V28) documented in this encounter Results * Debridement Arterial Ulcer (cluster) Right;Lower Leg (01/27/2025 1:00 PM EDT) Curtis Buchanan MD - 01/27/2025 1:00 PM EDT Curtis High MD 01/27/2025 2:09 PM Debridement Arterial Ulcer (cluster) Right;Lower Leg Performed by: Curtis High MD Authorized by: Curtis High MD Associated wounds: Wound Arterial Ulcer 09/21/24 Leg Right;Lower Consent: Consent obtained: Verbal Consent given by: Patient Risks discussed: Yes Time out: Immediately prior to the procedure a time out was called Debridement Details: Performed by: Physician Type: surgical Level: subcutaneous tissue Pain control: Lidocaine 4% Pain control administration: topical anesthesia Severity of Tissue Pre Debridement: Necrosis of muscle Severity of Tissue Post Debridement: Necrosis of muscle Time taken: 01/27/2025 1:22 PM Length (cm): 23 Width (cm): 25 Depth (cm): 0.5 Area (cm^2): 451.6 Time taken: 01/27/2025 1:23 PM Length (cm): 23 Width (cm): 25 Depth (cm): 0.5 Percent Debrided (%): 25 Surface Area (cm^2): 575 Area Debrided (cm^2): 143.75 Volume (cm^3): 287.5 Tissue and other material debrided: dermis, epidermis and subcutaneous tissue Devitalized tissue debrided: slough Instrument: Curette Amount of bleeding: small Hemostasis obtained with: Pressure Procedural pain: 0 Post-procedural pain: 0 Response to treatment: Procedure was tolerated well us Curtis High MD IN CLINIC/BEDSIDE ORDERAB LES Final Result documented in this encounter Visit Diagnoses Diagnosis PAD (peripheral artery disease) ([facility] V24)- Primary Unspecified peripheral vascular disease 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 meloxicam (MOBIC) 7.5 mg tablet Take 1 tablet (7.5 mg total) by mouth 1 (one) time each day. added in this encounter Orders General Supply Count Last Ordered Date First Or dered Date WOUND CARE SUPPLIES 1 01/27/2025 documented in this encounter Additional Health Concerns Active Problems Noted Date Diagnosed Date Impaired Tissue 09/21/2024 Education needed on impact of smoking on wound 0 09/21/2024 Education needed related to ulceration/compromised skin integrity. 09/21/2024 Infection Onset Date Last Indicated Resolved Time ESBL 09/21/2024 09/21/2024 MDRO (other) 12/23/2024 12/23/2024 documented as of this encounter Care Teams Plate Embosser Relationship Specialty Start Date End Date Fitz Espinoza PA [address] [place] [id number] PCP - General Primary Care 09/21/24 documented as of this encounter
[2025-02-02 23:14] VITALS: BP 127/95; PULSE 110; O2SAT 95
[2025-02-02 23:24] VITALS: BP 130/83; PULSE 104; RESP 20; TEMP 36.6; O2SAT 95; BMI 20.5
--- NOTE | 2025-02-02 23:29 | ED.SKABFB ---
HPI - Skin/Abscess/Foreign Bdy General Chief complaint: Skin/Abscess/Foreign Body Stated complaint: fall dizzy, fall Lac, 500ml blood loss, cellulites Time Seen by Provider: 02/02/25 23:29 History of Present Illness ED Provider: seda HPI narrative: 79 F who presents after spontaneous atraumatic bleeding from chronic foot wound. She said she did not strike the right lower leg against anything but suddenly she looked down and there was blood dripping on the floor. EMS arrived said that there was substantial amount of bleeding on the floor they put a pressure dressing over the wound and brought her in. The patient explains a longstanding chronic history of wounds to the right foot see photos below the patient had complicated infection that stemmed from a cat scratch that eventually required debridement and skin grafting at [place] many months ago, she follows at the [facility] most recently was there about 4 days ago she is currently on antibiotics. Denies any systemic symptoms. She is not on any blood thinners has not had any bleeding from these ulcers/wounds in the past Related Data Home Medications ?Medication ?Instructions ?Recorded ?Confirmed ibuprofen 800 mg tablet 800 mg PO TID PRN Pain 03/03/23 04/08/24 albuterol sulfate 90 mcg/actuation 2 puff inhalation Q6H PRN SOB 04/07/24 04/08/24 aerosol inhaler gabapentin 600 mg tablet 600 mg PO TID 04/07/24 04/07/24 lidocaine 5 % topical ointment 1 appl topical QID PRN Pain 04/07/24 04/08/24 meloxicam 7.5 mg tablet 7.5 mg PO DAILY PRN Pain 04/07/24 04/08/24 Previous Rx's ?Medication ?Instructions ?Recorded doxycycline monohydrate 100 mg 100 mg PO BID #14 caps 04/10/24 capsule Allergies Allergy/AdvReac Type Severity Reaction Status Date / Time meperidine (From Demerol) Allergy Severe Confusion Verified 02/02/25 23:27 penicillamine Allergy Unknown hives Verified 02/02/25 23:27 Codeine Phosphate Allergy Intermediate Vomiting Uncoded 02/02/25 23:27 penicillin Allergy Intermediate hives Uncoded 02/02/25 23:27 [facility] Past Medical History Medical History (Updated 02/04/25 @ 00:00 by Background Daemon) Chronic wound CRPS (complex regional pain syndrome), lower limb PAD (peripheral artery disease) Non-healing wound of right lower extremity Sciatica Social History Social History Household Members: Children and Other Household Members Other:: 2 sons and a granddaughter Housing: Other Housing Other:: 2 Family house Do you presently have visiting nurse or other home services: No Alcohol intake: never Patient Tobacco Use Status: Current everyday Tobacco user Smoking Start Date: 05/07/1961 Tobacco use type: Cigarette Cigarette Packs Per Day: 1 Cigarettes Per Day: 20.0 Smoked in Last 30 Days: Yes Use of substances other than those prescribed or required for medical reasons: No Advance Directives: No Advance Directives Information Provided: Yes service: No Physical Exam Exam: Exam: GENERAL: Well appearing. No apparent distress. Alert. Thin, well hydrated, calm and comfortable HEAD/NECK: No visual trauma. EYES: Normal to inspection. Mild conjunctival pallor ENMT: Hearing grossly normal. External nose normal. RESPIRATORY: Respiratory effort normal. CARDIOVASCULAR: Additional details (Grossly well perfused). SKIN: No jaundice. NEUROLOGICAL: Alert. Moving all extremities x4. Additional details (No gross motor deficits. Normal tone. ). PSYCHIATRIC: Alert. Appearance appropriate for situation. _ Right lower extremity mild swelling but soft compartments above chronic appearing wound with skin grafting. There is a malodor possibly pseudomonal. She has various areas of ulceration, skin grafting with fibrinous exudate. There is an aspect of what looks like an adherent medicated bandage over the posterior lower leg that is slightly blood soaked but there was no active bleeding. I do not see any active source of bleeding or oozing from anywhere on the foot at the time of arrival. Vital Signs: Vital Signs: Last Vital Signs Temp 98.2 F 02/03/25 01:08 Pulse 101 H 02/03/25 01:08 Resp 18 02/03/25 01:08 BP 112/65 02/03/25 01:08 Pulse Ox 99 02/03/25 01:08 O2 Del Method Room Air 02/03/25 01:08 BMI result Body Mass Index 20.5 Medical Decision Making Medical Decision Making MDM Narrative: Medical Decision Making: [age] female with chronic right lower extremity wounds status post remote skin grafting and regular care at [facility] currently on antibiotics. Afebrile not on anticoagulation brisk but resolved bleeding somewhere from 1 of the areas of wounding. This occurred prior to arrival here. Difficult to establish volume of blood loss we will get CBC. The patient remains hemodynamically stable looks perhaps chronically pale but euvolemic She has an appointment tomorrow with the [facility] so she does have close follow up Preliminary Favored Differential Diagnosis: Ulcer bleeding, varicose vein bleeding, among additional considered etiologies Testing Interpreted Independently: ?See below for details Radiology or Lab testing Results Reviewed: ?See below for details Consults: ?See below for details Independent Historians/External Chart Reviews: ?See below for details Social Determinants of Health Impacting MDM/Planning: ?See below for details Lab Data 02/02/25 23:40 Labs: Lab Results 02/02/25 Range/Units 23:40 WBC 20.2 H (4.8-10.8) X10*3/uL RBC 4.31 D (4.20-5.50) X10*6/uL Hgb 8.0 L (12.0-16.0) g/dl Hct 29.4 L (37.0-47.0) % MCV 68.2 L (80.0-98.0) fL MCH 18.6 L (27.0-33.0) pg MCHC 27.2 L (31.0-35.0) g/dl RDW 18.4 H (11.0-16.0) % Plt Count 492 H D (160-400) X10*3/uL MPV 9.4 (9.4-12.3) fL Immature Gran % (Auto) 0.5 H (0.0-0.4) % Neut % (Auto) 81.3 H (45-73) % Lymph % (Auto) 12.9 L (20-40) % Luce % (Auto) 4.3 (2-11) % Eos % (Auto) 0.6 (0-4) % Baso % (Auto) 0.4 (0-2) % Lymph # (Auto) 2.6 (1.2-4.9) X10*3/uL Luce # (Auto) 0.9 (0.1-1.2) X10*3/uL Eos # (Auto) 0.1 (0.0-0.4) X10*3/uL Baso # (Auto) 0.1 (0.0-0.2) X10*3/uL Abs Immat Gran (auto) 0.11 H (0.00-0.03) X10*3/uL Absolute Neuts (auto) 16.4 H (2.0-8.3) x10*3/uL Absolute Nucleated RBC 0.000 (0.0-0.012) X10*3/uL Nucleated RBC % (auto) 0.0 (0.0-0.2) /100WBC Discharge Plan Discharge Clinical Impression: Wound check, abscess Patient Disposition: Home, Self-Care Additional Instructions: DISCHARGE DIAGNOSES: Transient, resolved wound bleeding HISTORY OF PRESENTATION: ?Spontaneous wound bleeding EMERGENCY DEPARTMENT COURSE,TESTS, TREATMENTS: While in the ED today you had blood count and your wound was examined thoroughly. We do not see any active bleeding we checked your blood counts you have chronic anemia DISCHARGE MEDICATIONS: ?[We have made no changes to your regular medication regimen] FOLLOW-UP: ?Call your primary or general physician soon as possible to discuss your symptoms, your ED visit and to discuss follow up plans Continue with your previously scheduled follow up with the W[facility] Care Center tomorrow Continue taking your antibiotics and other prescribed medications no changes are made INSTRUCTIONS ?& RETURN PRECAUTIONS: If any symptoms change first call your primary physician, if it is after-hours your primary doctors office should have a provider agronomy location manager you can speak with. If the symptoms are severe or very concerning to you then call 911 or return to the ED. Dave Feliciano MD Emergency Physician [facility] Prescriptions: No Action gabapentin 600 mg tablet 600 mg PO TID meloxicam 7.5 mg tablet 7.5 mg PO DAILY PRN (Reason: Pain) albuterol sulfate 90 mcg/actuation HFA aerosol inhaler 2 puff inhalation Q6H PRN (Reason: SOB) lidocaine 5 % ointment 1 appl topical QID PRN (Reason: Pain) doxycycline monohydrate 100 mg capsule 100 mg PO BID Qty: 14 0RF ibuprofen 800 mg tablet 800 mg PO TID PRN (Reason: Pain) Interventions: ED Discharge Assessment Last Done: 02/03/25 01:08 Discharge Date/Time: 02/03/25 01:10 Print Language: Yemeni
[2025-02-02 23:44] LABS: MANUAL DIFF FLAG NO
[2025-02-02 23:50] LABS: Hematocrit 29.4 % (37.0-47.0); Hemoglobin 8.0 g/dl (12.0-16.0); Imm Gran Abs Auto 0.11 X10*3/uL (0.00-0.03); Imm Gran Pct Auto 0.5 % (0.0-0.4); Lymphocytes Absolute Auto 2.6 X10*3/uL (1.2-4.9); Mean Corpuscular HGB Conc 27.2 g/dl (31.0-35.0); Mean Corpuscular Hemoglobin 18.6 pg (27.0-33.0); Mean Corpuscular Volume 68.2 fL (80.0-98.0); NRBC Abs Auto 0.000 X10*3/uL (0.0-0.012); NRBC Pct Auto 0.0 /100WBC (0.0-0.2); Platelet Count 492 X10*3/uL (160-400); Red Blood Count 4.31 X10*6/uL (4.20-5.50); White Blood Count 20.2 X10*3/uL (4.8-10.8)
--- OUTSIDE RECORDS SUMMARY | 2025-02-03 00:28 | XMS_ITS | Encounter Summary ---
Author Organization [facility] Address [address] [place] [address] Care Team Providers Care Body Hanger Name Role Phone Alexis, Fitz HOFFMAN Primary Care Provider [phone] Encounter Details Date Type Department Care Team (Late Contact Info) Description 10/04/2024 Lab Requisition [facility] - Main Lab [address] [facility] [place] [address] Cora Vargas MD [address] [place] [address] 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 difficile, not specified as recurrent Social History Tobacco Use Types Packs/Day Years [...] on file documented as of this encounter Plan of Treatment Upcoming Encounters Date Type Department Care Team (Late Contact Info) Description 02/03/2025 2:45 PM EST Clinical Support [facility] [address] [place] [address] documented as of this encounter [...] Education Care Plan Impaired Tissue On track( 025 1:49 PM EDT) Mary Alice Cavanaugh RN [...] on wound No Mary Alice Morillo RN Reduce tobacco use (cigarettes, smokeless, etc) Care Plan Education needed on impact of smoking on wound No Mary Alice Morillo RN Decrease Wound Volume by X% by date (in notes) Care Plan Education needed on impact of smoking on wound No Mary Alice Morillo RN Patient and Caregiver Understand Wound Care Education Care Plan Education needed related to ulceration/compr omised skin integrity. No Mary Alice Morillo RN documented as of this encounter Procedures Procedure Name Priority Date/Time Associated Diagnosis Comments MAGNESIUM Routine 10/04/2024 5:10 AM EDT 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 difficile, not specified as recurrent VANCOMYCIN, RANDOM Routine 10/04/2024 5: 10 AM EDT 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 difficile, not specified as recurrent BASIC METABOLIC PANEL Routine 10/04/2024 5:10 AM EDT 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 difficile, not specified as recurrent documented in this encounter Results * (ABNORMAL) Magnesium (10/04/2024 5:10 AM EDT) Magnesium 1.8(L) 1.9 - 2.6 mg/dL LAB CHEMISTRY METHOD 10/04/2024 8:[address] [facility] Blood Venous blood specimen / Unknown Venipuncture / Unknown 10/04/2024 5:10 AM EDT 10/04/2024 7:58 AM EDT us Cora Vargas MD LAB BLOOD ORDERABLES Final Resul t Performing Organization Address City/[facility]/ZIP Co de Phone Number [facility] [address] [place] [address], [place] [phone] * Vancomycin random (10/04/2024 5:10 AM EDT) Pathologist [facility] Vancomycin Rm 15.1 mcg/mL LAB CHEMISTRY METHOD 10/04/2024 8:[address] [facility] Blood Venous blood specimen / Unknown Venipuncture / Unknown 10/04/2024 5:10 AM EDT 10/04/2024 7:58 AM EDT us Cora Vargas MD LAB BLOOD ORDERABLES Final Resul t Performing Organization Address [facility] de Phone Number [facility] [address] [place] [address], [place] [phone] * (ABNORMAL) Basic metabolic panel (10/04/2024 5:10 AM EDT) Pathologist [facility] Sodium 140 133 - 145 mmol/L LAB CHEMISTRY METHOD 10/04/2024 8:[address] [facility] Potassium 3.9 3.5 - 5.5 mmol/L LAB CHEMISTRY METHOD 10/04/2024 8:[address] [facility] Chloride 103 96 - 110 mmol/L LAB CHEMISTRY METHOD 10/04/2024 8:[address] [facility] CO2 33(H) 21 - 32 mmol/L LAB CHEMISTRY METHOD 10/04/2024 8:[address] [facility] Anion Gap 4 3 - 11 LAB CHEMISTRY METHOD 10/04/2024 8:[address] [facility] Glucose 76 70 - 100 mg/dL LAB CHEMISTRY METHOD 10/04/2024 8:[address] [facility] BUN 15 5 - 25 mg/dL LAB CHEMISTRY METHOD 10/04/2024 8:[address] [facility] Creatinine 0.44(L) 0.50 - 1.10 mg/dL LAB CHEMISTRY METHOD 10/04/2024 8:[address] [facility] eGFR 99 >=60 mL/min/1. 73m2 LAB CHEMISTRY METHOD 10/04/2024 8:[address] [facility] Comment:Calculation based on the Chronic Kidney Disease Epidemiology Collaboration (CKD-EPI) equation refit without adjustment for race. BUN/Creatinine Ratio 34.1 LAB CHEMISTRY METHOD 10/04/2024 8:[address] [facility] Calcium 8.1(L) 8.5 - 10.5 mg/dL LAB CHEMISTRY METHOD 10/04/2024 8:54 AM [facility] Blood Venous blood specimen / Unknown Venipuncture / Unknown 10/04/2024 5:10 AM EDT 10/04/2024 7:58 AM EDT us Cora Vargas MD LAB BLOOD ORDERABLES Final Resul t [facility] [address] [place] [address], documented in this encounter Visit Diagnoses Diagnosis 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 difficile, not specified as recurrent documented in this encounter Additional Health Concerns Active Problems Noted Date Diagnosed Date Impaired Tissue 09/21/2024 Education needed on impact of smoking on wound 0 09/21/2024 Education needed related to ulceration/compromised skin integrity. 09/21/2024 Infection Onset Date Last Indicated Resolved Time ESBL 09/21/2024 09/21/2024 C. difficile 09/24/2024 09/24/2024 10/18/2024 7:04 PM EDT MDRO (other) 12/23/2024 12/23/2024 documented as of this encounter Care Teams Body Hanger Relationship Specialty Start Date End Date Fitz Espinoza PA [address] [place] [address] PCP - General Primary Care 09/21/24 documented as of this encounter
--- OUTSIDE RECORDS SUMMARY | 2025-02-03 00:28 | XMS_ITS | Encounter Summary ---
Author Organization [facility] Address [address] [place] [id number] Phone Care Team Providers Care Chip Bin Conveyor Tender Name Role Phone Pcp, Unknown Primary Care Provider Unavailabl e Encounter Details Date Type Department Care Team ([facility] st Contact Info) Description 07/05/2024 Procedure Pass [facility] PERIOPERATIVE DEPT [address] [place] [id number] Social History Tobacco Use Types Packs/Day Years Used Date Smoking Tobacco: Never Assessed Education Answer Date Recorded Are you interested in more education? Not on eric e 06/23/2024 Are you concerned about learning? Not on file 06/23/2024 No 06/23/2024 No 06/23/2024 Food Answer Date Recorded Within the past 6 months we worried whether our food would run out before we got money to buy more. Never True 07/02/2024 Within the past 6 months the food we bought just didn't last and we didn't have enough money to get more. Never True Residential Stability Answer Date Recor ded What is your housing situation today? I have zita sing 07/02/2024 How many times have you move d in the past 12 months? Zero (I did not move) 07/02/2024 Paying for Meds Answer Date Recorded Do you have trouble paying for medicines? No 07/02/2024 Paying Utility Bills Answer Date Record ed Do you have trouble paying your heating or elect ricity bill? No 07/02/2024 Transportation Answer Date Recorded Has the lack of transportati on kept you from medical appointments or from getting medications? No 07/02/2024 Digital Access Answer Date Recorded No 07/02/2024 Yes 07/02/2024 Do you have reliable internet access at home? Ye s 07/02/2024 Do you have a device (e.g., phone, tablet, computer) with a working camera? Yes 07/02/2024 Intimate Partner Violence Answer Date R ecorded Are you denied basic needs s uch as food, clothing, or medical care? No 06/24/2024 In the past 12 months have y ou been in a relationship with a person who hurts, threatens, or tries to control you? No 06/24/2024 Are you denied basic needs s uch as food, clothing, or medical care? No 06/24/2024 In the past 12 months have y ou been in a relationship with a person who hurts, threatens, or tries to control you? No 06/24/2024 Comments No Sex and Gender Information Value Date Recorded Sex Assigned at Female 07/08/2024 8:34 AM EDT Legal Sex Female 10:08 PM EDT Gender Identity Female 07/08/2024 8:34 AM EDT Sexual Orientation Straight 07/08/2024 8: 34 AM EDT documented as of this encounter Plan of Treatment Upcoming Encounters Date Type Department Care Team (Late st Contact Info) Description 02/07/2025 1:00 PM EST Appointment [facility] Vascular Ultrasound Diagnostic Laboratory [address] [place] [address], 9th Floor, [address] [place] [address] aKmilah Tay MD [address] [place] [id number] [email or web address] 02/07/2025 2:15 PM EST Office Visit [facility] Vascular Surgery [address] [place] [address], 4th Floor, [address] [place] [address] Kamilah Tay MD [address] [place] [phone] [email or web address] documented as of this encounter Visit Diagnoses Not on filedocumented in this encounter Additional Health Concerns Infection Onset Date Last Indicated Resolved Time CDiff-Risk 07/12/2024 07/12/2024 07/12/2024 6:15 PM EDT [facility]-Risk Comment:Per note documentation 07/12/2024 07/12/2024 1:16 PM EDT documented as of this encounter Care Teams Chip Bin Conveyor Tender Relationship Specialty Start Date End Date Pcp, Unknown PCP - General 06/23/24 documented as of this encounter Additional Source Comments The information contained in this document represents components of the legal health record. It is not the complete legal health record.[facility]
--- OUTSIDE RECORDS SUMMARY | 2025-02-03 00:28 | XMS_ITS | Encounter Summary ---
Author Organization [facility] Address [address] [place] [phone] Phone Care Team Providers Care Health Services Rn Name Role Phone Pcp, Unknown Primary Care Provider Unavailabl e Encounter Details Date Type Department Care Team ([facility] st Contact Info) Description 06/24/2024 Procedure Pass [facility] Imaging - Peripoerative Interventional Radiology [address] [facility], [address]th [place] [address] Social History Tobacco Use Types Packs/Day Years Used Date Smoking Tobacco: Never Assessed Education Answer Date Recorded Are you interested in more education? Not on eric e 06/23/2024 Are you concerned about learning? Not on file 06/23/2024 No 06/23/2024 No 06/23/2024 Digital Access Answer Date Recorded No 06/23/2024 No 06/23/2024 Reliable internet access at home? Not on file 06/23/2024 Device with a working camera? Not on file Intimate Partner Violence Answer Date R ecorded [...] AM EDT documented as of this encounter Functional Status * Calculated C-SSRS Risk Score (Lifetime/Recent) Answer Date of Assessment Author No Risk Indicated 06/24/2024 12:30 AM EDT Yesy Feliciano RN * Howe Suicide Severity Rating Scale (Screener/Recent Self-Report) Question Answer Date of Assessment Author 1. Wish to be (Past 1 Month) No 06/24/2024 12:30 AM EDT Ki Meeks RN 2. Non-Specific Active Suicidal Thoughts (Past 1 Month) No 06/24/2024 12:30 AM EDT Ki Meeks RN 6. Suicidal Behavior (Lifetime) No 06/24/2024 12:30 AM EDT Ki Meeks RN documented as of this encounter Plan of Treatment Upcoming Encounters Date Type Department Care Team (Late st Contact Info) Description 02/07/2025 1:00 PM EST Appointment [facility] Vascular Ultrasound Diagnostic Laboratory [address] [place] [address], [address] Floor, [address] [place] [address] Kamilah Tay MD [address] [place] [id number] [email or web address] 02/07/2025 2:15 PM EST Office Visit [facility] Vascular Surgery [address] [place] [address], 4[address] Floor, [address] [place] [address] Kamilah Tay MD [address] [place] [id number] [email or web address] as of this encounter Visit Diagnoses Not on filedocumented in this encounter Additional Health Concerns Infection Onset Date Last Indicated Resolved Time CDiff-Risk 07/12/2024 07/12/2024 07/12/2024 6:15 PM EDT [facility]-Risk Comment:Per note documentation 07/12/2024 07/12/2024 1:16 PM EDT documented as of this encounter Care Teams Health Services Rn Relationship Specialty Start Date End Date Pcp, Unknown PCP - General 06/23/24 documented as of this encounter Additional Source Comments The information contained in this document represents components of the legal health record. It is not the complete legal health record.[facility]
--- OUTSIDE RECORDS SUMMARY | 2025-02-03 00:28 | XMS_ITS | Encounter Summary ---
Author Organization [facility] Address [address] [place] [address] Care Team Providers Care Geospatial Extractor Analysis Name Role Phone Alexis, Fitz HOFFMAN Primary Care Provider [phone] Encounter Details Date Type Department Care Team (Late Contact Info) Description 10/08/2024 Lab Requisition [facility] - Main Lab [address] [facility] [place] [address] Cora Vargas MD [address] [place] [address] Chronic obstructive pulmonary disease, unspecified (CMS/HCC V24, CMS/HCC V28) Social History Tobacco [...] Description 02/03/2025 2:45 PM EST Clinical Support [facility] [address] [place] [address] documented as of this encounter [...] by week 8 Care Plan Impaired Tissue Mary Alice Cavanaugh RN Wound volume breakdown reduced by X% by week 12 Care Plan Impaired Tissue Mary Alice Cavanaugh RN Quit using tobacco (cigarettes, smokeless, etc) Care Plan Education needed on impact of smoking on wound No Mary Alice Morillo RN Reduce tobacco use (cigarettes, smokeless, etc) Care Plan Education needed on impact of smoking on wound No Mary Alice oMrillo RN Decrease Wound Volume by X% by date (in notes) Care Plan Education needed on impact of smoking on wound No Mary Alice Morillo RN Patient and Caregiver Understand Wound Care Education Care Plan Education needed related to ulceration/compr omised skin integrity. No Mary Alice Morillo RN documented as of this encounter Procedures Procedure Name Priority Date/Time Associated Diagnosis Comments COMPLETE BLOOD COUNT Routine 10/10/2024 5:21 AM EDT Chronic obstructive pulmonary disease, unspecified (CMS/HCC V24, CMS/[facility] V28) BASIC METABOLIC PANEL Routine 10/10/2024 5:21 AM EDT Chronic obstructive pulmonary disease, unspecified (CMS/HCC V24, CMS/HCC V28) documented in this encounter Results * Basic metabolic panel (10/10/2024 5:21 AM EDT) Sodium 135 133 - 145 mmol/L LAB CHEMISTRY METHOD 10/10/2024 3:28 PM EDT [facility] Potassium 4.5 3.5 - 5.5 mmol/L LAB CHEMISTRY METHOD 10/10/2024 3:28 PM [facility] Chloride 101 96 - 110 mmol/L LAB CHEMISTRY METHOD 10/10/2024 3:28 PM [facility] CO2 28 21 - 32 mmol/L LAB CHEMISTRY METHOD 10/10/2024 3:28 PM [facility] Anion Gap 6 3 - 11 LAB CHEMISTRY METHOD 10/10/2024 3:28 PM T [facility] Glucose 70 70 - 100 mg/dL LAB CHEMISTRY METHOD 10/10/2024 3:28 PM [facility] BUN 15 5 - 25 mg/dL LAB CHEMISTRY METHOD 10/10/2024 3:28 PM [facility] Creatinine 0.51 0.50 - 1.10 mg/dL LAB CHEMISTRY METHOD 10/10/2024 3:28 PM [facility] eGFR 96 >=60 mL/min/1. 73m2 LAB CHEMISTRY METHOD 10/10/2024 3:28 PM [facility] Comment:Calculation based on the Chronic Kidney Disease Epidemiology Collaboration (CKD-EPI) equation refit without adjustment for race. BUN/Creatinine Ratio 29.4 LAB CHEMISTRY METHOD 10/10/2024 3:28 PM [facility] Calcium 8.7 8.5 - 10.5 mg/dL LAB CHEMISTRY METHOD 10/10/2024 3:28 PM [facility] Blood Venous blood specimen / Unknown Venipuncture / Unknown 10/10/2024 5:21 AM EDT 10/10/2024 10:48 AM EDT us Cora Vargas MD LAB BLOOD ORDERABLES Final Resul t [facility] [address] [place] [address], [place] [phone] * (ABNORMAL) Complete blood count (10/10/2024 5:21 AM EDT) [facility] WBC 7.2 4.8 - 10.8 K/mcL LAB HEMETOLOGY METHOD 10/10/2024 11:24 AM [facility] RBC 3.80 3.80 - 4.80 M/mcL LAB HEMETOLOGY METHOD 10/10/2024 11:24 AM [facility] Hemoglobin 7.9(L) 11.5 - 16.0 g/dL LAB HEMETOLOGY METHOD 10/10/2024 11:24 AM [facility] Hematocrit 29.3(L) 35.0 - 47.0 % LAB HEMETOLOGY METHOD 10/10/2024 11:24 AM [facility] MCV 77.3(L) 79.0 - 98.0 FL LAB HEMETOLOGY METHOD 10/10/2024 11:24 AM [facility] MCH 20.8(L) 27.0 - 32.0 pcg LAB HEMETOLOGY METHOD 10/10/2024 11:24 AM [facility] MCHC 27.0(L) 32.0 - 37.0 g/dL LAB HEMETOLOGY METHOD 10/10/2024 11:24 AM [facility] RDW 19.9(H) 11.0 - 15.0 % LAB HEMETOLOGY METHOD 10/10/2024 11:24 AM [facility] Platelets 400 130 - 400 K/mcL LAB HEMETOLOGY METHOD 10/10/2024 11:24 AM [facility] MPV 10.1 7.0 - 11.0 FL LAB HEMETOLOGY METHOD 10/10/2024 11:24 AM [facility] NRBC 0.0 <1.0 % LAB HEMETOLOGY METHOD 10/10/2024 11:24 AM EDT [facility] NRBC Absolute 0.00 <0.10 K/mcL LAB HEMETOLOGY METHOD 10/10/2024 11:24 AM EDT [facility] Blood Venous blood specimen / Unknown Venipuncture / Unknown 10/10/2024 5:21 AM EDT 10/10/2024 10:48 AM EDT us Cora Vargas MD LAB BLOOD ORDERABLES Final Resul t [facility] [address] [place] [address], documented in this encounter Visit Diagnoses Diagnosis Chronic obstructive pulmonary disease, unspecified (CMS/HCC V24, CMS/HCC V28) documented in this encounter Additional Health Concerns Active Problems Noted Date Diagnosed Date Impaired Tissue 09/21/2024 Education needed on impact of smoking on wound 0 09/21/2024 Education needed related to ulceration/compromised skin integrity. 09/21/2024 Infection Onset Date Last Indicated Resolved Time ESBL 09/21/2024 09/21/2024 C. difficile 09/24/2024 09/24/2024 10/18/2024 7:04 PM EDT MDRO (other) 12/23/2024 12/23/2024 documented as of this encounter Care Teams Geospatial Extractor Analysis Relationship Specialty Start Date End Date Fitz Espinoza PA [address] [place] [address] [address] [place] [address] PCP - General Primary Care 09/21/24 documented as of this encounter
--- OUTSIDE RECORDS SUMMARY | 2025-02-03 00:28 | XMS_ITS ---
Care Plan Created on: February 03, 2025 Amanda Lund : 1945 Sex: Female Author Organization [facility] Address [address] [place] [address] Phone Care Team Providers Care Mesmerist Name Role Phone Fitz Espinoza Primary Care Provider [phone] Active Problems Problem Noted Date Diagnosed Date Pressure ulcer of right foot , stage 3 ([facility] V24, [facility] V28) 11/09/2024 Non-pressure chronic ulcer o f other part of right foot with fat layer exposed ([facility] V24, [facility] V28) 10/24/2024 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 ([facility] V24, [facility] V28) 10/24/2024 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 ([facility] V24, [facility] V28) 10/24/2024 Pressure injury of right nick l, stage 3 ([facility] V24, [facility] V28) 09/21/2024 PAD (peripheral artery disease) ([facility] V24) 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 09/21/2024 Infection Onset Date Last Indicated ESBL 09/21/2024 09/21/2024 MDRO (other) 12/23/2024 12/23/2024 Goals Goal Patient Goal Type Associated Problems [...] by week 4 Care Plan Impaired Tissue Mary Alice Cavanaugh [...] smoking on wound Mary Alice Cavanaugh RN Decrease Wound Volume by X% by date (in notes) Care Plan Education needed on impact of smoking on wound Mary Alice Cavanaugh RN Patient and Caregiver Understand Wound Care Education Care Plan Education needed related to ulceration/compr omised skin integrity. Mary Alice Cavanaugh RN Interventions Care Plan Interventions Intervention Entry Date Outcome Provide caregiver with wound care procedure information 09/21/2024 Educate caregiver on proper wound care procedures 09/21/2024 Give provider list of wound care supplies 09/21/2024 Refill wound care supplies 09/21/2024 Send Wound Care Supplies 09/21/2024 Give provider list of wound care supplies 09/21/2024 Refill wound care supplies 09/21/2024 Send Wound Care Supplies 09/21/2024 Provide caregiver with wound care procedure information 09/21/2024 Educate caregiver on proper wound care procedures 09/21/2024 Document patient eligibility for HBO 09/21/2024 Assess patient for HBO treatment 09/21/2024 Record wound depth 09/21/2024 Record total wound area 09/21/2024 Measure wound progress 09/21/2024 Create an action plan identifying patient strengths and supports 09/21/2024 Establish quit date with patient 09/21/2024 Discuss prior cessation attempts 09/21/2024 Discuss preferred method of cessation and plan 09/21/2024 Discuss barriers to smoking cessation 09/21/2024 Discuss smoking status with patient 09/21/2024 Create an action plan identifying patient strengths and supports 09/21/2024 Establish quit date with patient 09/21/2024 Discuss prior cessation attempts 09/21/2024 Discuss preferred method of cessation and plan 09/21/2024 Discuss barriers to smoking cessation 09/21/2024 Discuss smoking status with patient 09/21/2024 Provide caregiver with wound care procedure information 09/21/2024 Educate caregiver on proper wound care procedures 09/21/2024 Document patient eligibility for HBO 09/21/2024 Assess patient for HBO treatment 09/21/2024 Record wound depth 09/21/2024 Record total wound area 09/21/2024 Measure wound progress 09/21/2024 Provide caregiver with wound care procedure information 09/21/2024 Educate caregiver on proper wound care procedures 09/21/2024 Document patient eligibility for HBO 09/21/2024 Assess patient for HBO treatment 09/21/2024 Record wound depth 09/21/2024 Record total wound area 09/21/2024 Measure wound progress 09/21/2024 Provide caregiver with wound care procedure information 09/21/2024 Educate caregiver on proper wound care procedures 09/21/2024 Document patient eligibility for HBO 09/21/2024 Assess patient for HBO treatment 09/21/2024 Record wound depth 09/21/2024 Record total wound area 09/21/2024 Measure wound progress 09/21/2024 Provide caregiver with wound care procedure information 09/21/2024 Educate caregiver on proper wound care procedures 09/21/2024 Give provider list of wound care supplies 09/21/2024 Refill wound care supplies 09/21/2024 Give provider list of wound care supplies 09/21/2024 Refill wound care supplies 09/21/2024 Provide caregiver with wound care procedure information 09/21/2024 Educate caregiver on proper wound care procedures 09/21/2024 Record wound depth 09/21/2024 Record total wound area 09/21/2024 Measure wound progress 09/21/2024 Related Goals and Interventions Goal Associated Intervent ions Decrease Wound Volume by X% by date (in notes) Give provider list of wound care supplie s; Refill wound care supplies; Provide caregiver with wound care procedure information; Educate caregiver on proper wound care procedures; Record wound depth; Record total wound area; Measure wound progress Patient and Caregiver Unders tand Wound Care Education Provide caregiver with wound care proced ure information; Educate caregiver on proper wound care procedures; Give provider list of wound care supplies; Refill wound care supplies Wound volume breakdown reduc ed by X% by week 4 Provide caregiver with wound care proced ure information; Educate caregiver on proper wound care procedures; Document patient eligibility for HBO; Assess patient for HBO treatment; Record wound depth; Record total wound area; Measure wound progress Wound volume breakdown reduc ed by X% by week 8 Provide caregiver with wound care proced ure information; Educate caregiver on proper wound care procedures; Document patient eligibility for HBO; Assess patient for HBO treatment; Record wound depth; Record total wound area; Measure wound progress Wound volume breakdown reduc ed by X% by week 12 Provide caregiver with wound care proced ure information; Educate caregiver on proper wound care procedures; Document patient eligibility for HBO; Assess patient for HBO treatment; Record wound depth; Record total wound area; Measure wound progress Quit using tobacco (cigarett es, smokeless, etc) Create an action plan identifying patien t strengths and supports; Establish quit date with patient; Discuss prior cessation attempts; Discuss preferred method of cessation and plan; Discuss barriers to smoking cessation; Discuss smoking status with patient Reduce tobacco use (cigarett es, smokeless, etc) Create an action plan identifying patien t strengths and supports; Establish quit date with patient; Discuss prior cessation attempts; Discuss preferred method of cessation and plan; Discuss barriers to smoking cessation; Discuss smoking status with patient Decrease Wound Volume by X% by date (in notes) Give provider list of wound care supplie s; Refill wound care supplies; Send Wound Care Supplies; Provide caregiver with wound care procedure information; Educate caregiver on proper wound care procedures; Document patient eligibility for HBO; Assess patient for HBO treatment; Record wound depth; Record total wound area; Measure wound progress Patient and Caregiver Unders tand Wound Care Education Provide caregiver with wound care proced ure information; Educate caregiver on proper wound care procedures; Give provider list of wound care supplies; Refill wound care supplies; Send Wound Care Supplies
--- OUTSIDE RECORDS SUMMARY | 2025-02-03 00:28 | XMS_ITS | Encounter Summary ---
Author Organization [facility] Address [address] [place] [address] Phone Care Team Providers Care Export Administrator Name Role Phone Pcp, Unknown Primary Care Provider Unavailabl e Encounter Details Date Type Department Care Team (Late st Contact Info) Description 06/24/[address] [facility] [address] [place] [phone] Social History Tobacco Use Types Packs/Day Years [...] 12:30 AM EDT Yesy Feliciano RN * [place] Suicide Severity Rating Scale (Screener/Recent Self-Report) Question [...] Info) Description 02/07/2025 1:[address] [facility] [address] [place] [address], 9th Floor, [address] [place] [address] Kamilah Tay MD [address] [place] [phone] [email or web address] 02/07/2025 2:15 PM EST Office Visit [facility] [address] [place] [address], 4th Floor, [address] [place] [address] Kamilah Tay MD [address] [place] [phone] [email or web address] documented as of this encounter Visit Diagnoses Not on filedocumented in this encounter Additional Health Concerns Infection Onset Date Last Indicated Resolved Time CDiff-Risk 07/12/2024 07/12/2024 07/12/2024 6:15 PM EDT CoV-Risk Comment:Per note documentation 07/12/2024 07/12/2024 1:16 PM EDT documented as of this encounter Care Teams Export Administrator Relationship Specialty Start Date End Date Pcp, Unknown PCP - General 06/23/24 documented as of this encounter Additional Source Comments The information contained in this document represents components of the legal health record. It is not the complete legal health record.[facility]
--- OUTSIDE RECORDS SUMMARY | 2025-02-03 00:28 | XMS_ITS | Encounter Summary ---
Author Organization [facility] Address [address] [place] [address] Phone Care Team Providers Care State Appellate Clerk Name Role Phone Pcp, Unknown Primary Care Provider Unavailabl e Encounter Details Date Type Department Care Team ([facility] st Contact Info) Description 07/08/2024 Procedure Pass [facility] PER[facility]IVE [facility]PT [address] [place] [id number] Social History Tobacco Use Types Packs/Day Years Used Date Smoking Tobacco: Every Day Cigarettes Education Answer Date Recorded Are you interested [...] Info) Description 02/07/2025 1:00 PM EST Appointment [facility] Vascular Ultrasound Diagnostic Laboratory [address] [place] [address], 9th Floor, [address] [place] [address] Kamilah Tay MD [address] [place] [phone] [email or web address] 02/07/2025 2:15 PM EST Office Visit [facility] Vascular Surgery [address] [place] [address], 4th Floor, [address] [place] [address] Kamilah Tay MD [address] [place] [phone] [email or web address] documented as of this encounter Visit Diagnoses Not on filedocumented in this encounter Additional Health Concerns Infection Onset Date Last Indicated Resolved Time CDiff-Risk 07/12/2024 07/12/2024 07/12/2024 6:15 PM EDT CoV-Risk Comment:Per note documentation 07/12/2024 07/12/2024 1:16 PM EDT documented as of this encounter Care Teams State Appellate Clerk Relationship Specialty Start Date End Date Pcp, Unknown PCP - General 06/23/24 documented as of this encounter Additional Source Comments The information contained in this document represents components of the legal health record. It is not the complete legal health record.[facility]
--- OUTSIDE RECORDS SUMMARY | 2025-02-03 00:28 | XMS_ITS | Encounter Summary ---
Author Organization [facility] Address [address] [place] [address] Care Team Providers Care Baby Formula Mixer Name Role Phone Alexis, Fitz HOFFMAN Primary Care Provider [phone] Encounter Details Date Type Department Care Team ([facility] Contact Info) Description 10/12/2024 Lab Requisition [facility] - Main Lab [address] [facility], [facility] [place] [address] Cora Vargas MD [address] [place] [address] 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 difficile, recurrent Social History Tobacco Use Types Packs/Day [...] Description 02/03/2025 2:45 PM EST Clinical Support [facility] [address] [place] [address] documented as of this encounter [...] Morillo RN documented as of this encounter Visit Diagnoses Diagnosis 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 difficile, recurrent documented in this encounter Additional Health [...] documented as of this encounter Care Teams Baby Formula Mixer Relationship Specialty Start Date End Date Fitz Espinoza PA [address] [place] [address] PCP - General Primary Care 09/21/24 documented as of this encounter
--- OUTSIDE RECORDS SUMMARY | 2025-02-03 00:28 | XMS_ITS | Encounter Summary ---
Author Organization [facility] Address [address] [place] [address] Care Team Providers Care Milieu Technician Name Role Phone Alexis, Fitz HOFFMAN Primary Care Provider [phone] Encounter Details Date Type Department Care Team (Late Contact Info) Description 10/06/2024 Lab Requisition [facility] - Main Lab [address] [facility] [place] [address] Cora Vargas MD [address] [place] [address] Essential (primary) hypertension Social History Tobacco Use Types Packs/Day Years [...] Description 02/03/2025 2:45 PM EST Clinical Support [facility] [address] [place] [address] documented as of this encounter [...] Procedure Name Priority Date/Time Associated Diagnosis Comments BASIC METABOLIC PANEL Routine 10/07/2024 6:24 AM EDT Essential (primary) hypertension documented in this encounter Results * (ABNORMAL) Basic metabolic panel (10/07/2024 6:24 AM EDT) Sodium 135 133 - 145 mmol/L LAB CHEMISTRY METHOD 10/07/2024 9:26 AM EDT [facility] Potassium 4.2 3.5 - 5.5 mmol/L LAB CHEMISTRY METHOD 10/07/2024 9:26 AM EDT [facility] Chloride 99 96 - 110 mmol/L LAB CHEMISTRY METHOD 10/07/2024 9:26 AM T [facility] CO2 31 21 - 32 mmol/L LAB CHEMISTRY METHOD 10/07/2024 9:26 AM [facility] Anion Gap 5 3 - 11 LAB CHEMISTRY METHOD 10/07/2024 9:26 AM [facility] Glucose 84 70 - 100 mg/dL LAB CHEMISTRY METHOD 10/07/2024 9:26 AM [facility] BUN 12 5 - 25 mg/dL LAB CHEMISTRY METHOD 10/07/2024 9:26 AM [facility] Creatinine 0.38(L) 0.50 - 1.10 mg/dL LAB CHEMISTRY METHOD 10/07/2024 9:26 AM [facility] eGFR 103 >=60 mL/min/1. 73m2 LAB CHEMISTRY METHOD 10/07/2024 9:26 AM [facility] Comment:Calculation based on the Chronic Kidney Disease Epidemiology Collaboration (CKD-EPI) equation refit without adjustment for race. BUN/Creatinine Ratio 31.6 LAB CHEMISTRY METHOD 10/07/2024 9:26 AM [facility] Calcium 8.5 8.5 - 10.5 mg/dL LAB CHEMISTRY METHOD 10/07/2024 9:26 AM [facility] Blood Venous blood specimen / Unknown Venipuncture / Unknown 10/07/2024 6:24 AM EDT 10/07/2024 8:07 AM EDT us Cora Vargas MD LAB BLOOD ORDERABLES Final Resul t [facility] [address] [place] [address], documented in this encounter Visit Diagnoses Diagnosis Essential (primary) hypertension Unspecified essential hypertension documented in this encounter Additional Health Concerns Active Problems Noted Date Diagnosed Date Impaired Tissue 09/21/2024 Education needed on impact of smoking on wound 0 09/21/2024 Education needed related to ulceration/compromised skin integrity. 09/21/2024 Infection Onset Date Last Indicated Resolved Time ESBL 09/21/2024 09/21/2024 C. difficile 09/24/2024 09/24/2024 10/18/2024 7:04 PM EDT MDRO (other) 12/23/2024 12/23/2024 documented as of this encounter Care Teams Milieu Technician Relationship Specialty Start Date End Date Fitz Espinoza PA [address] [place] [address] PCP - General Primary Care 09/21/24 documented as of this encounter
--- OUTSIDE RECORDS SUMMARY | 2025-02-03 00:28 | XMS_ITS | Encounter Summary ---
Author Organization [facility] Address [address] [place] [address] [address] [place] [address] Phone Care Team Providers Care Care Analyst Name Role Phone Pcp, Unknown Primary Care Provider Unavailabl e Encounter Details Date Type Department Care Team (Late st Contact Info) Description 06/23/2024 Procedure Pass [facility] [place], Chris [address] [facility], 2nd Floor, [address] [place] [address] Social History Tobacco Use Types Packs/Day Years [...] tries to control you? No 06/24/2024 Comments Unknown Sex and Gender Information Value [...] 12:30 AM EDT Yesy Feliciano RN * [place] Suicide Severity Rating Scale (Screener/Recent Self-Report) Question [...] 02/07/2025 1:00 PM EST Appointment [facility] Vascular Ultrasound Diagnostic Laboratory [address] [place] [address], 9th Floor, [address] [place] [address] aKmilah Tay MD [address] [place] [phone] [email or web address] 02/07/2025 2:15 PM EST Office Visit [facility] Vascular Surgery [address] [place] [address], 4th Floor, [address] [place] [address] Kamilah Tay MD [address] [place] [phone] [email or web address] documented as of this encounter Visit Diagnoses Not on filedocumented in this encounter Additional Health Concerns Infection Onset Date Last Indicated Resolved Time CDiff-Risk 07/12/2024 07/12/2024 07/12/2024 6:15 PM EDT CoV-Risk Comment:Per note documentation 07/12/2024 07/12/2024 1:16 PM EDT documented as of this encounter Care Teams Care Analyst Relationship Specialty Start Date End Date Pcp, Unknown PCP - General 06/23/24 documented as of this encounter Additional Source Comments The information contained in this document represents components of the legal health record. It is not the complete legal health record.[facility]
--- OUTSIDE RECORDS SUMMARY | 2025-02-03 00:28 | XMS_ITS | Encounter Summary ---
Author Organization [facility] Address [address] [place] [phone] Phone Care Team Providers Care Block Greaser Name Role Phone Pcp, Unknown Primary Care Provider Unavailabl e Encounter Details Date Type Department Care Team (Late st Contact Info) Description 07/15/[address] [facility] [place] [address] [place] [address] Social History Tobacco Use Types Packs/Day Years [...] have reliable internet access at home? Ye noel 07/02/2024 Do you have a device (e.g., [...] [place] [address] [place] [address], 9th Floor, [address] [place] [address] Kamilah Tay MD [address] [place] [phone] [email or web address] 02/07/2025 2:15 PM EST Office Visit [facility] [place] [address] [facility], 4th Floor, [address] [place] [address] Kamilah Tay MD [address] [place] [phone] [email or web address] documented as of this encounter Visit Diagnoses Not on filedocumented in this encounter Care Teams Block Greaser Relationship Specialty Start Date End Date Pcp, Unknown PCP - General 06/23/24 documented as of this encounter Additional Source Comments The information contained in this document represents components of the legal health record. It is not the complete legal health record.[facility]
--- OUTSIDE RECORDS SUMMARY | 2025-02-03 00:28 | XMS_ITS | Encounter Summary ---
Author Organization [facility] Address [address] [place] [address] [place] [phone] Phone Care Team Providers Care Neurosurgery Spine Physician Name Role Phone Pcp, Unknown Primary Care Provider Unavailabl e Encounter Details Date Type Department Care Team ([facility] st Contact Info) Description 09/12/2024 Procedure Pass [facility] [place] [address] [facility] [address] [place] [address] Social History Tobacco Use Types Packs/Day Years [...] Info) Description 02/07/2025 1:00 PM EST Appointment [facility] [place] [place] Laboratory [address] [place] [address], 9th Floor, [address] [place] [address] Kamilah Tay MD [address] [place] [phone] [email or web address] 02/07/2025 2:15 PM EST Office Visit [facility] [place] [address] [place] [address], 4th Floor, [address] [place] [address] Kamilah Tay MD [address] [place] [phone] [email or web address] documented as of this encounter Visit Diagnoses Not on filedocumented in this encounter Care Teams Neurosurgery Spine Physician Relationship Specialty Start Date End Date Pcp, Unknown PCP - General 06/23/24 documented as of this encounter Additional Source Comments The information contained in this document represents components of the legal health record. It is not the complete legal health record.[facility]
--- OUTSIDE RECORDS SUMMARY | 2025-02-03 00:28 | XMS_ITS ---
Author Name [facility] Organization Unknown History of Medication Use Medication Directions Dispensed Refills Start Date End Date Stat us collagenase (SANTYL) 250 unit/gram ointment Apply topically 1 (one) time each day. 09/30/2024 active enoxaparin (LOVENOX) 40 mg/0.4 mL syringe Inject 0.4 mL (40 mg total) under the skin 1 (one) time each day at the same time for 14 days. 09/30/2024 active pantoprazole (PROTONIX) 40 mg EC tablet Take 1 tablet (40 mg total) by mouth 1 (one) time each day before breakfast. Do not crush, chew, or split. 09/30/2024 active acetaminophen (TYLENOL) 325 mg tablet Take 2 tablets (650 mg total) by mouth every 4 (four) hours if needed for mild pain, headaches or fever - temperature GREATER than 38 C (100.4 F) for up to 10 days. 09/29/2024 active fidaxomicin (DIFICID) 200 mg tablet Take 1 tablet (200 mg total) by mouth every 12 (twelve) hours for 10 days. 09/29/2024 active gabapentin (NEURONTIN) 300 mg capsule Take 2 capsules (600 mg total) by mouth every 8 (eight) hours. 09/29/2024 active lactobacillus acidoph-l.bulgar 100 million cell granules in packet Take 1 packet by mouth 3 (three) times a day with meals. 09/29/2024 active ondansetron ODT (ZOFRAN-ODT) 4 mg disintegrating tablet Take 1 tablet (4 mg total) by mouth every 8 (eight) hours if needed for vomiting or nausea for up to 7 days. 09/29/2024 active sucralfate (CARAFATE) 1 gram tablet Take 1 tablet (1 g total) by mouth 4 (four) times a day (before meals and nightly). 09/29/2024 active traMADoL (ULTRAM) 50 mg tablet Take 1 tablet (50 mg total) by mouth every 6 (six) hours if needed for moderate pain for up to 5 doses. Max Daily Amount: 200 mg 09/29/2024 active vancomycin 500 mg in sodium chloride 0.9 % 100 mL IVPB Infuse 500 mg into a venous catheter every 8 (eight) hours for 18 doses. 09/29/2024 active furosemide (LASIX) 40 mg tablet Take 1 tablet (40 mg total) by mouth 1 (one) time each day. 09/09/2024 active albuterol HFA (PROAIR HFA ; PROVENTIL HFA ; VENTOLIN HFA) 90 mcg/actuation inhaler Inhale 2 puffs by mouth every 6 (six) hours if needed for shortness of breath or wheezing. 09/06/2024 active clopidogreL (PLAVIX) 75 mg tablet Take 1 tablet (75 mg total) by mouth 1 (one) time each day. 08/31/2024 active omeprazole (PriLOSEC) [address] capsule Take 2 capsules (40 mg total) by mouth 2 (two) times a day. 08/31/2024 active ascorbic acid (VITAMIN C) 500 mg tablet Take 1 tablet (500 mg total) by mouth 2 (two) times a day. active aspirin 81 mg chewable tablet Chew 1 tablet (81 mg total) 1 (one) time each day. active Allergies Allergen Reaction Severity Comment Documented Date Source Statu s CODEINE NAUSEA AND VOMITING 09/21/2024 [facility] active MEPERIDINE 09/21/2024 [facility] active PENICILLINS HIVES Tolerated Unasyn, likely not allergic 09/21/2024 [facility] active Problems Problem Status Onset Date Problem Type Date of Resoluti on Source Non-pressure chronic ulcer of other part of right lower leg with fat layer exposed ([facility] V24, [facility] V28) active 2024-09-21 Problem[address] [facility] Pressure injury of right heel, stage 3 ([facility] V24, [facility] V28) active 2024-09-21 ProblemAct [facility] PAD (peripheral artery disease) ([facility] V24) active 2024-09-[address] Problem[address] [facility] Sepsis ([facility] V24, [facility] V28) active 2024-09-21 ProblemAct [facility]
--- OUTSIDE RECORDS SUMMARY | 2025-02-03 00:28 | XMS_ITS | Encounter Summary ---
Author Organization [facility] Address [address] [place] [address] [place] [phone] Phone Care Team Providers Care Application Support Consultant Name Role Phone Pcp, Unknown Primary Care Provider Unavailabl e Encounter Details Date Type Department Care Team ([facility] st Contact Info) Description 07/13/2024 Procedure Pass [facility] 4 ENDO DEPT [address] [facility], 4th [place] [address] Social History Tobacco Use Types Packs/Day Years [...] Info) Description 02/07/2025 1:00 PM EST Appointment [facility] [place] Ultrasound Diagnostic Laboratory [address] [place] [address], 9th Floor, [address] [place] [address] Kamilah Tay MD [address] [place] [phone] [email or web address] 02/07/2025 2:15 PM EST Office Visit [facility] Vascular Surgery [address] [facility], 4th Floor, [address] [place] [address] Kamilah Tay MD [address] [place] [phone] [email or web address] documented as of this encounter Visit Diagnoses Not on filedocumented in this encounter Care Teams Application Support Consultant Relationship Specialty Start Date End Date Pcp, Unknown PCP - General 06/23/24 documented as of this encounter Additional Source Comments The information contained in this document represents components of the legal health record. It is not the complete legal health record.[facility]
--- OUTSIDE RECORDS SUMMARY | 2025-02-03 00:28 | XMS_ITS | Clinical Summary ---
Author Organization [facility] Address [address] [place] [address] Phone Care Team Providers Care Roll Tension Tester Name Role Phone Fitz Espinoza Primary Care Provider [phone] Allergies Active Allergy Reactions Criticality Noted Date Comments Codeine Nausea And Vomiting Medium 09/21/2024 Meperidine Medium 09/21/2024 Penicillins Hives Medium 09/21/2024 Tolerated Unasyn, likely not allergic Medications albuterol HFA (PROAIR HFA ; PROVENTIL HFA ; VENTOLIN HFA) 90 mcg/actuation inhaler Inhale 2 puffs by mouth every 6 (six) hours if needed for shortness of breath or wheezing. 5 Active clopidogreL (PLAVIX) 75 mg tablet Take 1 tablet (75 mg total) by mouth 1 (one) time each day. 5 Active omeprazole (PriLOSEC) [address] capsule Take 2 capsules (40 mg total) by mouth 2 (two) times a day. 5 Active aspirin 81 mg chewable tablet Chew 1 tablet (81 mg total) 1 (one) time each day. Active ascorbic acid (VITAMIN C) 500 mg tablet Take 1 tablet (500 mg total) by mouth 2 (two) times a day. Active furosemide (LASIX) 40 mg tablet Take 1 tablet (40 mg total) by mouth 1 (one) time each day. 5 Active gabapentin (NEURONTIN) 300 mg capsule Take 2 capsules (600 mg total) by mouth every 8 (eight) hours. 5 Active lactobacillus acidoph-l.bulga r 100 million cell granules in packet Take 1 packet by mouth 3 (three) times a day with meals. 5 Active pantoprazole (PROTONIX) 40 mg EC tablet Take 1 tablet (40 mg total) by mouth 1 (one) time each day before breakfast. Do not crush, chew, or split. 5 10/01/19 26 Active traMADoL (ULTRAM) 50 mg tabletIndicatio ns:Non-pressure chronic ulcer of other part of right lower leg with fat layer exposed ([facility] V24, [facility] V28) Take 1 tablet (50 mg total) by mouth every 6 (six) hours if needed for moderate pain for up to 5 doses. Max Daily Amount: 200 mg 5 each 5 Active meloxicam (MOBIC) 7.5 mg tablet Take 1 tablet (7.5 mg total) by mouth 1 (one) time each day. Active ciprofloxacin (Cipro) 500 mg tablet Take 1 tablet (500 mg total) by mouth 2 (two) times a day for 10 days. 20 each 5 02/07/20 25 Active ciprofloxacin (Cipro) 500 mg tablet Take 1 tablet (500 mg total) by mouth 2 (two) times a day for 10 days. 20 each 5 01/07/20 25 lidocaine (XYLOCAINE) 4 % external solution Apply topically 1 (one) time for 1 dose. 50 mL 5 01/07/20 25 lidocaine (XYLOCAINE) 4 % external solution Apply topically 1 (one) time for 1 dose. 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 ([facility] V24, [facility] V28) 10/24/2024 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 ([facility] V24, [facility] V28) 10/24/2024 Pressure injury of right nick l, stage 3 ([facility] V24, [facility] V28) 09/21/2024 PAD (peripheral artery disease) ([facility] V24) 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 ([facility] V24, [facility] V28) 09/21/2024 Sepsis ([facility] V24, [facility] V28) 09/21/2024 Encounters Date Type Department Care Team Description 01/27/2025 1:00 PM EDT Office Visit [facility] [address] [place] [phone] Curtis High MD PAD (peripheral artery disease) ([facility] V24) (Primary Dx); 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 ([facility] V24, [facility] V28) 01/13/2025 2:30 PM EDT Office Visit [facility] [address] [place] [phone] Sudheer Fortune PA PAD (peripheral artery disease) ([facility] V24) (Primary Dx); Pressure injury of right heel, stage 3 ([facility] V24, [facility] V28); Non-pressure chronic ulcer of other part of right foot with fat layer exposed ([facility] V24, [facility] V28); 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 without evidence of necrosis ([facility] V24, [facility] V28) 01/06/2025 1:45 PM EDT Office Visit [facility] [address] [place] [phone] Curtis High MD PAD (peripheral artery disease) ([facility] V24) (Primary Dx); Pressure injury of right heel, stage 3 ([facility] V24, [facility] V28); Non-pressure chronic ulcer of other part of right foot with fat layer exposed ([facility] V24, [facility] V28); 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 without evidence of necrosis (CMS/HCC V24, CMS/HCC V28) 12/30/2024 1:00 PM EDT Office Visit [facility] [address] [place] [address] [phone] Sudheer Fortune PA PAD (peripheral artery disease) ([facility] V24) (Primary Dx); Non-pressure chronic ulcer of other part of right lower leg with fat layer exposed (CMS/HCC V24, [facility] V28); Non-pressure chronic ulcer of right heel and midfoot with fat layer exposed (CMS/HCC V24, [facility] V28); Pressure injury of right heel, stage 3 ([facility] V24, [facility] V28) 12/27/2024 Telephone [facility] [address] [place] [address] [phone] Dinora Moreira RN 12/23/2024 11:30 AM EDT Office Visit [facility] [address] [place] [phone] Sudheer Fortune PA Non-pressure chronic ulcer of other part of right lower leg with fat layer exposed ([facility] V24, [facility] V28) (Primary Dx); Non-pressure chronic ulcer of other part of right foot with fat layer exposed ([facility] V24, [facility] V28); Non-pressure chronic ulcer of right heel and midfoot with fat layer exposed ([facility] V24, [facility] V28); Non-pressure chronic ulcer of right ankle with fat layer exposed ([facility] V24, [facility] V28); Pressure injury of right heel, stage 3 ([facility] V24, [facility] V28); Cellulitis of right foot; Cellulitis of right lower extremity; Pressure ulcer of right foot, stage 3 ([facility] V24, [facility] V28); PAD (peripheral artery disease) ([facility] V24) 12/09/2024 12:30 PM EDT Office Visit [facility] [address] [place] [address] [phone] Sudheer Fortune PA PAD (peripheral artery disease) (CMS/HCC V24) (Primary Dx); Non-pressure chronic ulcer of other part of right lower leg with fat layer exposed (CMS/HCC V24, CMS/HCC V28); Non-pressure chronic ulcer of other part of right foot with fat layer exposed (CMS/HCC V24, CMS/HCC V28); Non-pressure chronic ulcer of right heel and midfoot with fat layer exposed (CMS/HCC V24, CMS/HCC V28); Non-pressure chronic ulcer of right ankle with fat layer exposed (CMS/HCC V24, CMS/HCC V28); Pressure injury of right heel, stage 3 (CMS/HCC V24, CMS/HCC V28); Pressure ulcer of right foot, stage 3 (CMS/HCC V24, CMS/HCC V28) 12/01/2024 1:00 PM EDT Office Visit [facility] [address] [place] [phone] Sudheer Fortune PA PAD (peripheral artery disease) (CMS/HCC V24) (Primary Dx); Non-pressure chronic ulcer of other part of right lower leg with fat layer exposed (CMS/HCC V24, CMS/HCC V28); Non-pressure chronic ulcer of other part of right foot with fat layer exposed (CMS/HCC V24, CMS/HCC V28); Non-pressure chronic ulcer of right heel and midfoot with fat layer exposed (CMS/HCC V24, CMS/HCC V28); Non-pressure chronic ulcer of right ankle with fat layer exposed (CMS/HCC V24, CMS/HCC V28); Pressure injury of right heel, stage 3 (CMS/HCC V24, CMS/HCC V28) 11/23/2024 1:00 PM EDT Office Visit [facility] [address] [place] [phone] Sudheer Fortune PA PAD (peripheral artery disease) (CMS/HCC V24) (Primary Dx); Non-pressure chronic ulcer of other part of right lower leg with fat layer exposed (CMS/HCC V24, CMS/HCC V28); Non-pressure chronic ulcer of other part of right foot with fat layer exposed (CMS/HCC V24, CMS/HCC V28); Non-pressure chronic ulcer of right heel and midfoot with fat layer exposed (CMS/HCC V24, CMS/HCC V28); Non-pressure chronic ulcer of right ankle with fat layer exposed (CMS/HCC V24, CMS/HCC V28); Pressure injury of right heel, stage 3 (CMS/HCC V24, CMS/HCC V28) 11/17/2024 12:30 PM EDT Office Visit [facility] [address] [place] [phone] Sudheer Fortune PA PAD (peripheral artery disease) (CMS/HCC V24) (Primary Dx); Non-pressure chronic ulcer of other part of right lower leg with fat layer exposed (CMS/HCC V24, CMS/HCC V28); Non-pressure chronic ulcer of other part of right foot with fat layer exposed (CMS/HCC V24, CMS/HCC V28); Non-pressure chronic ulcer of right heel and midfoot with fat layer exposed (CMS/HCC V24, CMS/HCC V28); Non-pressure chronic ulcer of right ankle with fat layer exposed (CMS/HCC V24, CMS/HCC V28); Pressure injury of right heel, stage 3 (CMS/HCC V24, CMS/HCC V28) 11/09/2024 12:30 PM EDT Office Visit [facility] [address] [place] [address] [phone] Sudheer Fortune PA PAD (peripheral artery disease) ([facility] V24) (Primary Dx); Non-pressure chronic ulcer of other part of right lower leg with fat layer exposed (CMS/HCC V24, CMS/HCC V28); Non-pressure chronic ulcer of other part of right foot with fat layer exposed (CMS/HCC V24, CMS/HCC V28); Non-pressure chronic ulcer of right heel and midfoot with fat layer exposed (CMS/HCC V24, CMS/HCC V28); Non-pressure chronic ulcer of right ankle with fat layer exposed (CMS/HCC V24, CMS/HCC V28); Pressure injury of right heel, stage 3 (CMS/HCC V24, CMS/HCC V28); Rash of unknown cause from Last 3 Months Surgical History Surgery Date Site/Laterality Comments SKIN GRAFT 05/28/2024 - 06/27/2024 Right Mass General ANGIOPLASTY 06/24/2024 Secondary to left SFA occlusion Medical History Medical History Date Comments COPD (chronic obstructive pu lmonary disease) ([facility] V24, [facility] V28) Peripheral vascular disease ([facility] V24) Upper GI bleed 07/13/2024 Secondary to mul tiple pyloric erosions. 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 Peripheral artery disease ([facility] V24) Superficial femoral artery occlusion ([facility] V24) Recannulization via balloon angioplasty 06/24/2024 Family History Medical History Relation Name Comments Heart disease Father Alcohol abuse Mother Blindness Neg Hx Cataracts Neg Hx Glaucoma Neg Hx Macular degeneration Neg Hx Strabismus Neg Hx Relation Name Status Comments Father Mother Social History Tobacco Use Types Packs/Day Years Used Date Smoking Tobacco: Every Day Cigarettes Smokeless Tobacco: Never Tobacco Cessation:Ready to Q uit: Not Asked; Counseling Given: Not Answered Alcohol Use Standard Drinks/Week Comments Never 0 (1 standard drink = 0.6 oz pur e alcohol) Interpersonal Safety Answer Date Record ed Physical Abuse Unrecognized value 09/22/2024 Verbal Abuse Unrecognized value 09/22/2024 Comments Unknown Sex and Gender Information Value Date Recorded Sex Assigned at Not on file Legal Sex Female 2:46 PM EST Gender Identity Not on file Sexual Orientation Not on file Obstetrics History Last Filed Vital Signs Vital Sign Reading Time Taken Comments Blood Pressure 128/41 01/27/2025 1:08 PM EDT Pulse 88 01/27/2025 1:08 PM EDT Temperature 36.7 C (98.1 F) 01/27/2025 1:08 PM EDT Respiratory Rate 18 01/27/2025 1:08 PM EDT Oxygen Saturation 97% 01/13/2025 2:34 PM EDT Inhaled Oxygen Concentration - - Weight 49 kg (108 lb) 09/29/2024 8:10 PM EDT Height 152.4 cm (5') 09/29/2024 8:10 PM EDT Body Mass Index 21.09 09/29/2024 8:10 PM EDT Plan of Treatment Upcoming Encounters Date Type Department Care Team (Late st Contact Info) Description 02/03/2025 2:45 PM EST Clinical Support [facility] [address] [place] [phone] Health Maintenance Due Date Last Done Comments DTaP,Tdap,and Td Vaccines (1 - Tdap) 1964 Pneumococcal Vaccine: 50+ Years (1 of 2 - PCV) 1964 Zoster Vaccines (1 of 2) 11/25/1995 RSV Immunization Adult Patients (1 - 1-dose 75+ series) 2020 Depression Screening 03/30/2024 Hepatitis C Screening 08/30/2024 Medicare Annual Wellness Visit 08/30/2024 Osteoporosis Screening (Bone Density Screening) 08/30/2024 Social Influencers of Health Screening 08/30/2024 COVID-19 Vaccine (4 - 2024-2 6 season) 2024 04/10/2021, 06/20/2020, 05/23/2020 Influenza Vaccine (#1) 2024 Falls Risk Assessment 09/29/2025 09/29/2024 Cholesterol Screening (Lipid Panel) 07/05/2029 07/05/2024, 07/04/2024 HIB Vaccines Aged Out No longer eligi ble based on patient's age to complete this topic HPV Vaccines Aged Out No longer eligi ble based on patient's age to complete this topic Hepatitis A Vaccines Aged Out No long er eligible based on patient's age to complete this topic Hepatitis B Vaccines Aged Out No long er eligible based on patient's age to complete this topic IPV Vaccines Aged Out No longer eligi ble based on patient's age to complete this topic MMR Vaccines Aged Out No longer eligi ble based on patient's age to complete this topic Meningococcal ACWY Vaccine Aged Out N o longer eligible based on patient's age to complete this topic Meningococcal B Vaccine Aged Out No l onger eligible based on patient's age to complete this topic RSV Immunization Patients Under 20 months Aged Out No longer eligible b ased on patient's age to complete this topic Varicella Vaccines Aged Out No longer eligible based on patient's age to complete this topic Goals Goal Patient Goal Type Associated Problems [...] omised skin integrity. 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 without evidence of necrosis (CMS/HCC V24, CMS/HCC V28) DEBRIDEMENT Routine 01/06/2025 1:45 PM EDT PAD (peripheral artery disease) (CMS/HCC V24) 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 without evidence of necrosis (CMS/HCC V24, CMS/HCC V28) DEBRIDEMENT Routine 12/30/2024 1:00 PM EDT PAD (peripheral artery disease) (CMS/HCC V24) Pressure injury of right heel, stage 3 (CMS/HCC V24, CMS/HCC V28) DEBRIDEMENT Routine 12/30/2024 1:00 PM EDT PAD (peripheral artery disease) (CMS/HCC V24) Non-pressure chronic ulcer of right heel and midfoot with fat layer exposed (CMS/HCC V24, CMS/HCC V28) DEBRIDEMENT Routine 12/30/2024 1:00 PM EDT PAD (peripheral artery disease) (CMS/HCC V24) Non-pressure chronic ulcer of other part of right lower leg with fat layer exposed (CMS/HCC V24, CMS/HCC V28) CULTURE WOUND WITH GRAM STAIN Routine 12/23/2024 12:01 PM EDT Non-pressure chronic ulcer of other part of right lower leg with fat layer exposed (CMS/HCC V24, CMS/HCC V28) Non-pressure chronic ulcer of other part of right foot with fat layer exposed (CMS/HCC V24, CMS/HCC V28) DEBRIDEMENT Routine 12/23/2024 11:30 AM EDT Non-pressure chronic ulcer of other part of right foot with fat layer exposed (CMS/HCC V24, CMS/HCC V28) PAD (peripheral artery disease) (CMS/HCC V24) DEBRIDEMENT Routine 12/23/2024 11:30 AM EDT Non-pressure chronic ulcer of right ankle with fat layer exposed (CMS/HCC V24, CMS/HCC V28) PAD (peripheral artery disease) (CMS/HCC V24) DEBRIDEMENT Routine 12/23/2024 11:30 AM EDT Non-pressure chronic ulcer of other part of right foot with fat layer exposed (CMS/HCC V24, CMS/HCC V28) Cellulitis of right foot PAD (peripheral artery disease) (CMS/HCC V24) DEBRIDEMENT Routine 12/23/2024 11:30 AM EDT Non-pressure chronic ulcer of right heel and midfoot with fat layer exposed (CMS/HCC V24, CMS/HCC V28) Pressure injury of right heel, stage 3 (CMS/HCC V24, CMS/HCC V28) PAD (peripheral artery disease) (CMS/HCC V24) DEBRIDEMENT Routine 12/23/2024 11:30 AM EDT Non-pressure chronic ulcer of other part of right lower leg with fat layer exposed (CMS/HCC V24, CMS/HCC V28) Cellulitis of right lower extremity PAD (peripheral artery disease) (CMS/HCC V24) DEBRIDEMENT Routine 12/09/2024 12:30 PM EDT PAD (peripheral artery disease) (CMS/HCC V24) Non-pressure chronic ulcer of other part of right foot with fat layer exposed (CMS/HCC V24, CMS/HCC V28) Pressure ulcer of right foot, stage 3 (CMS/HCC V24, CMS/HCC V28) DEBRIDEMENT Routine 12/09/2024 12:30 PM EDT PAD (peripheral artery disease) (CMS/HCC V24) Non-pressure chronic ulcer of right ankle with fat layer exposed (CMS/HCC V24, CMS/HCC V28) Pressure ulcer of right foot, stage 3 (CMS/HCC V24, CMS/HCC V28) DEBRIDEMENT Routine 12/09/2024 12:30 PM EDT PAD (peripheral artery disease) (CMS/HCC V24) Non-pressure chronic ulcer of right heel and midfoot with fat layer exposed (CMS/HCC V24, CMS/HCC V28) Pressure injury of right heel, stage 3 (CMS/HCC V24, CMS/HCC V28) DEBRIDEMENT Routine 12/09/2024 12:30 PM EDT PAD (peripheral artery disease) (CMS/HCC V24) Non-pressure chronic ulcer of other part of right foot with fat layer exposed (CMS/HCC V24, CMS/HCC V28) DEBRIDEMENT Routine 12/01/2024 1:00 PM EDT PAD (peripheral artery disease) (CMS/HCC V24) Non-pressure chronic ulcer of other part of right foot with fat layer exposed (CMS/HCC V24, CMS/HCC V28) DEBRIDEMENT Routine 12/01/2024 1:00 PM EDT PAD (peripheral artery disease) (CMS/HCC V24) Non-pressure chronic ulcer of other part of right foot with fat layer exposed (CMS/HCC V24, CMS/HCC V28) DEBRIDEMENT Routine 12/01/2024 1:00 PM EDT PAD (peripheral artery disease) (CMS/HCC V24) Non-pressure chronic ulcer of other part of right foot with fat layer exposed (CMS/HCC V24, CMS/HCC V28) DEBRIDEMENT Routine 12/01/2024 1:00 PM EDT PAD (peripheral artery disease) (CMS/HCC V24) Non-pressure chronic ulcer of right ankle with fat layer exposed (CMS/HCC V24, CMS/HCC V28) DEBRIDEMENT Routine 12/01/2024 1:00 PM EDT PAD (peripheral artery disease) (CMS/HCC V24) Non-pressure chronic ulcer of other part of right foot with fat layer exposed (CMS/HCC V24, CMS/HCC V28) DEBRIDEMENT Routine 12/01/2024 1:00 PM EDT PAD (peripheral artery disease) (CMS/HCC V24) Non-pressure chronic ulcer of right heel and midfoot with fat layer exposed (CMS/HCC V24, CMS/HCC V28) DEBRIDEMENT Routine 12/01/2024 1:00 PM EDT PAD (peripheral artery disease) (CMS/HCC V24) Non-pressure chronic ulcer of other part of right lower leg with fat layer exposed (CMS/HCC V24, CMS/HCC V28) DEBRIDEMENT Routine 11/23/2024 1:00 PM EDT PAD (peripheral artery disease) (CMS/HCC V24) Non-pressure chronic ulcer of other part of right foot with fat layer exposed (CMS/HCC V24, CMS/HCC V28) DEBRIDEMENT Routine 11/23/2024 1:00 PM EDT PAD (peripheral artery disease) (CMS/HCC V24) Non-pressure chronic ulcer of other part of right foot with fat layer exposed (CMS/HCC V24, CMS/HCC V28) DEBRIDEMENT Routine 11/23/2024 1:00 PM EDT PAD (peripheral artery disease) (CMS/HCC V24) Non-pressure chronic ulcer of other part of right foot with fat layer exposed (CMS/HCC V24, CMS/HCC V28) DEBRIDEMENT Routine 11/23/2024 1:00 PM EDT PAD (peripheral artery disease) (CMS/HCC V24) Non-pressure chronic ulcer of right ankle with fat layer exposed (CMS/HCC V24, CMS/HCC V28) DEBRIDEMENT Routine 11/23/2024 1:00 PM EDT PAD (peripheral artery disease) (CMS/HCC V24) Non-pressure chronic ulcer of other part of right foot with fat layer exposed (CMS/HCC V24, CMS/HCC V28) DEBRIDEMENT Routine 11/23/2024 1:00 PM EDT PAD (peripheral artery disease) (CMS/HCC V24) Non-pressure chronic ulcer of right heel and midfoot with fat layer exposed (CMS/HCC V24, CMS/HCC V28) Pressure injury of right heel, stage 3 (CMS/HCC V24, CMS/HCC V28) DEBRIDEMENT Routine 11/17/2024 12:30 PM EDT PAD (peripheral artery disease) (CMS/HCC V24) Non-pressure chronic ulcer of other part of right foot with fat layer exposed (CMS/HCC V24, CMS/HCC V28) DEBRIDEMENT Routine 11/17/2024 12:30 PM EDT PAD (peripheral artery disease) (CMS/HCC V24) Non-pressure chronic ulcer of other part of right foot with fat layer exposed (CMS/HCC V24, CMS/HCC V28) DEBRIDEMENT Routine 11/17/2024 12:30 PM EDT PAD (peripheral artery disease) (CMS/HCC V24) Non-pressure chronic ulcer of other part of right foot with fat layer exposed (CMS/HCC V24, CMS/HCC V28) DEBRIDEMENT Routine 11/17/2024 12:30 PM EDT PAD (peripheral artery disease) (CMS/HCC V24) Non-pressure chronic ulcer of right ankle with fat layer exposed (CMS/HCC V24, CMS/HCC V28) DEBRIDEMENT Routine 11/17/2024 12:30 PM EDT PAD (peripheral artery disease) (CMS/HCC V24) DEBRIDEMENT Routine 11/17/2024 12:30 PM EDT PAD (peripheral artery disease) (CMS/HCC V24) Non-pressure chronic ulcer of right heel and midfoot with fat layer exposed (CMS/HCC V24, CMS/HCC V28) Pressure injury of right heel, stage 3 (CMS/HCC V24, CMS/HCC V28) DEBRIDEMENT Routine 11/17/2024 12:30 PM EDT PAD (peripheral artery disease) (CMS/HCC V24) Non-pressure chronic ulcer of other part of right lower leg with fat layer exposed (CMS/HCC V24, CMS/HCC V28) DEBRIDEMENT Routine 11/09/2024 12:30 PM EDT PAD (peripheral artery disease) (CMS/HCC V24) Non-pressure chronic ulcer of other part of right foot with fat layer exposed (CMS/HCC V24, CMS/HCC V28) DEBRIDEMENT Routine 11/09/2024 12:30 PM EDT PAD (peripheral artery disease) (CMS/HCC V24) Non-pressure chronic ulcer of other part of right foot with fat layer exposed (CMS/HCC V24, CMS/HCC V28) DEBRIDEMENT Routine 11/09/2024 12:30 PM EDT PAD (peripheral artery disease) (CMS/HCC V24) Non-pressure chronic ulcer of other part of right foot with fat layer exposed (CMS/HCC V24, CMS/HCC V28) DEBRIDEMENT Routine 11/09/2024 12:30 PM EDT PAD (peripheral artery disease) (CMS/HCC V24) DEBRIDEMENT Routine 11/09/2024 12:30 PM EDT PAD (peripheral artery disease) (CMS/HCC V24) Non-pressure chronic ulcer of right heel and midfoot with fat layer exposed (CMS/HCC V24, CMS/HCC V28) Pressure injury of right heel, stage 3 (CMS/HCC V24, CMS/HCC V28) DEBRIDEMENT Routine 11/09/2024 12:30 PM EDT PAD (peripheral artery disease) (CMS/HCC V24) Non-pressure chronic ulcer of other part of right lower leg with fat layer exposed (CMS/HCC V24, CMS/HCC V28) from Last 3 Months Results * Debridement Arterial Ulcer (cluster) Right;Lower [...] MD IN CLINIC/BEDSIDE ORDERAB LES Final Result * Debridement Pressure Injury Posterior;Right Heel (01/13/2025 2:30 PM EDT) Curtis Buchanan MD - 01/13/2025 2:30 PM EDT Curtis High MD 01/18/2025 8:42 AM Debridement Pressure Injury Posterior;Right Heel Performed by: DALTON Viera Authorized by: DALTON Viera Associated wounds: Wound Pressure Injury 09/21/24 Heel Posterior;Right Consent: Consent obtained: Verbal Consent given by: Patient Risks discussed: Yes Time out: Immediately prior to the procedure a time out was called Debridement Details: Performed by: DALTON Type: surgical Level: subcutaneous tissue Pain control: Lidocaine 4% Severity of Tissue Pre Debridement: Fat layer exposed Severity of Tissue Post Debridement: Fat layer exposed Time taken: 01/13/2025 2:51 PM Length (cm): 3 Width (cm): 2.4 Depth (cm): 0.4 Area (cm^2): 5.65 Time taken: 01/13/2025 2:52 PM Length (cm): 3 Width (cm): 2.4 Depth (cm): 0.4 Percent Debrided (%): 75 Surface Area (cm^2): 7.2 Area Debrided (cm^2): 5.4 Volume (cm^3): 2.88 Tissue and other material debrided: subcutaneous tissue Devitalized tissue debrided: biofilm and slough Instrument: Curette Amount of bleeding: none Hemostasis obtained with: Not applicable Procedural pain: 0 Post-procedural pain: 0 Response to treatment: Procedure was tolerated well us Sudheer Fortune PA IN CLINIC/BEDSIDE ORDERABLE S Final Result * Debridement Arterial Ulcer (cluster) Right;Lower Leg (01/13/2025 2:30 PM EDT) Curtis Buchanan MD - 01/13/2025 2:30 PM EDT Curtis High MD 01/18/2025 8:42 AM Debridement Arterial Ulcer (cluster) Right;Lower Leg Performed by: DALTON Viera Authorized by: DALTON Viera Associated wounds: Wound Arterial Ulcer 09/21/24 Leg Right;Lower Consent: Consent obtained: Verbal Consent given by: Patient Risks discussed: Yes Time out: Immediately prior to the procedure a time out was called Debridement Details: Performed by: PA Type: surgical Level: subcutaneous tissue Pain control: Lidocaine 4% Severity of Tissue Pre Debridement: Fat layer exposed Severity of Tissue Post Debridement: Fat layer exposed Time taken: 01/13/2025 2:49 PM Length (cm): 13.8 Width (cm): 13.5 Depth (cm): 0.5 Area (cm^2): 146.32 Time taken: 01/13/2025 2:50 PM Length (cm): 13.8 Width (cm): 13.5 Depth (cm): 0.5 Percent Debrided (%): 25 Surface Area (cm^2): 186.3 Area Debrided (cm^2): 46.58 Volume (cm^3): 93.15 Tissue and other material debrided: fascia and subcutaneous tissue Devitalized tissue debrided: biofilm and slough Instrument: Curette Amount of bleeding: none Hemostasis obtained with: Not applicable Procedural pain: 0 Post-procedural pain: 0 Response to treatment: Procedure was tolerated well us Sudheer Fortune PA IN CLINIC/BEDSIDE ORDERABLE S Final Result * Debridement Arterial Ulcer (cluster) Right;Lower Leg (01/06/2025 1:45 PM EDT) Curtis Buchanan MD - 01/06/2025 1:45 PM EDT Curtis High MD 01/06/2025 2:43 PM Debridement Arterial Ulcer (cluster) Right;Lower Leg [...] topical anesthesia Severity of Tissue Pre Debridement: Muscle involvement without necrosis Severity of Tissue Post Debridement: Muscle involvement without necrosis Time taken: 01/06/2025 1:52 PM Length (cm): 13.8 Width (cm): 13.5 Depth (cm): 0.5 Area (cm^2): 146.32 Time taken: 01/06/2025 1:53 PM Length (cm): 13.8 Width (cm): 13.5 Depth (cm): 0.5 Percent Debrided (%): 25 Surface Area (cm^2): 186.3 Area Debrided (cm^2): 46.58 Volume (cm^3): 93.15 Tissue and other material debrided: dermis, epidermis and subcutaneous tissue Devitalized tissue debrided: slough Instrument: Curette Amount of bleeding: small Hemostasis obtained with: Pressure Procedural pain: 0 Post-procedural pain: 0 Response to treatment: Procedure was tolerated well us Curtis High MD IN CLINIC/BEDSIDE ORDERAB LES Final Result * Debridement Arterial Ulcer Right Foot (12/30/2024 1:00 PM EDT) Curtis Buchanan MD - 12/30/2024 1:00 PM EDT Curtis High MD 01/05/2025 3:17 PM Debridement Arterial Ulcer Right Foot Performed by: DALTON Viera Authorized by: DALTON Viera Associated wounds: Wound Arterial Ulcer 09/26/24 Foot Right Consent: Consent obtained: Verbal Consent given by: Patient Risks discussed: Yes Time out: Immediately prior to the procedure a time out was called Debridement Details: Performed by: DALTON Type: surgical Level: subcutaneous tissue Pain control: Lidocaine 4% Severity of Tissue Pre Debridement: Fat layer exposed Severity of Tissue Post Debridement: Fat layer exposed Time taken: 12/30/2024 1:12 PM Length (cm): 16.7 Width (cm): 14.1 Depth (cm): 0.5 Area (cm^2): 184.94 Time taken: 12/30/2024 1:13 PM Length (cm): 16.7 Width (cm): 14.1 Depth (cm): 0.5 Percent Debrided (%): 25 Surface Area (cm^2): 235.47 Area Debrided (cm^2): 58.87 Volume (cm^3): 117.73 Tissue and other material debrided: subcutaneous tissue Devitalized tissue debrided: biofilm, necrotic debris and slough Instrument: Curette Amount of bleeding: none Hemostasis obtained with: Not applicable Procedural pain: 0 Post-procedural pain: 0 Response to treatment: Procedure was tolerated well us Sudheer HOFFMAN IN CLINIC/BEDSIDE ORDERABLE S Final Result * Debridement Pressure Injury Posterior;Right Heel (12/30/2024 1:00 PM EDT) Curtis Buchanan MD - 12/30/2024 1:00 PM EDT Curtis High MD 01/05/2025 3:17 PM Debridement Pressure Injury Posterior;Right Heel Performed by: DALTON Viera Authorized by: DALTON Viera Associated wounds: Wound Pressure Injury 09/21/24 Heel Posterior;Right Consent: Consent obtained: Verbal Consent given by: Patient Risks discussed: Yes Time out: Immediately prior to the procedure a time out was called Debridement Details: Performed by: DALTON Type: surgical Level: subcutaneous tissue Pain control: Lidocaine 4% Severity of Tissue Pre Debridement: Fat layer exposed Severity of Tissue Post Debridement: Fat layer exposed Time taken: 12/30/2024 1:14 PM Length (cm): 2.4 Width (cm): 2.2 Depth (cm): 0.4 Area (cm^2): 4.15 Time taken: 12/30/2024 1:15 PM Length (cm): 2.4 Width (cm): 2.2 Depth (cm): 0.4 Percent Debrided (%): 50 Surface Area (cm^2): 5.28 Area Debrided (cm^2): 2.64 Volume (cm^3): 2.11 Tissue and other material debrided: subcutaneous tissue Devitalized tissue debrided: biofilm, necrotic debris and slough Instrument: Curette Amount of bleeding: none Hemostasis obtained with: Not applicable Procedural pain: 0 Post-procedural pain: 0 Response to treatment: Procedure was tolerated well us Sudheer HOFFMAN IN CLINIC/BEDSIDE ORDERABLE S Final Result * Debridement Arterial Ulcer (cluster) Right;Lower Leg (12/30/2024 1:00 PM EDT) Curtis Buchanan MD - 12/30/2024 1:00 PM EDT Curtis High MD 01/05/2025 3:17 PM Debridement Arterial Ulcer (cluster) Right;Lower Leg Performed by: DALTON Viera Authorized by: DALTON Viera Associated wounds: Wound Arterial Ulcer 09/21/24 Leg Right;Lower Consent: Consent obtained: Verbal Consent given by: Patient Risks discussed: Yes Time out: Immediately prior to the procedure a time out was called Debridement Details: Performed by: PA Type: surgical Level: subcutaneous tissue Pain control: Lidocaine 4% Severity of Tissue Pre Debridement: Fat layer exposed Severity of Tissue Post Debridement: Fat layer exposed Time taken: 12/30/2024 1:10 PM Length (cm): 13.5 Width (cm): 13.1 Depth (cm): 0.7 Area (cm^2): 138.9 Time taken: 12/30/2024 1:11 PM Length (cm): 13.5 Width (cm): 13.1 Depth (cm): 0.7 Percent Debrided (%): 50 Surface Area (cm^2): 176.85 Area Debrided (cm^2): 88.43 Volume (cm^3): 123.79 Tissue and other material debrided: subcutaneous tissue Devitalized tissue debrided: biofilm, necrotic debris and slough Instrument: Curette Amount of bleeding: none Hemostasis obtained with: Not applicable Procedural pain: 0 Post-procedural pain: 0 Response to treatment: Procedure was tolerated well us Sudheer HOFFMAN IN CLINIC/BEDSIDE ORDERABLE S Final Result * (ABNORMAL) Culture wound with gram stain (12/23/2024 12:01 PM EDT) Culture, Wound Proteus mirabilis(A) CHERIE 12/29/2024 9:13 AM EDT [facility] Comment: The organism value for this result has been updated. These results have been appended to the previously preliminary verified report. This is an edited result. Previous organism was Gram negative bacilli on 12/24/2024 at 1355 EDT. Edited result: Previously reported as Proteus species on 12/25/2024 at 1228 EDT. Culture, Wound Pseudomonas aeruginosa(A) CHERIE 12/29/2024 9:13 AM EDT [facility] Comment: The organism value for this result has been updated. These results have been appended to the previously preliminary verified report. This is an edited result. Previous organism was Gram negative bacilli on 12/25/2024 at 1228 EDT. Culture, Wound Streptococcus beta-hemolytic Group B(A) CHERIE 12/29/2024 9:13 AM EDT [facility] Comment: Susceptibility testing is not routinely performed for Beta Streptococcus isolates since these organisms are predictably sensitive to Penicillin. If the Patient is not responding, is allergic to Penicillin, or further therapeutic information is requir ed, please consult an Infectious Disease Specialist. The organism value for this result has been updated. These results have been appended to the previously preliminary verified report. This is an edited result. Previous organism was Gram Positive Cocci on 12/26/2024 at 1318 EDT. Culture, Wound Enterococcus faecalis(A) CHERIE 12/29/2024 9:13 AM EDT [facility] Comment: The organism value for this result has been updated. These results have been appended to the previously preliminary verified report. This is an edited result. Previous organism was Streptococcus Gamma non hemolytic on 12/26/2024 at 1352 EDT. Culture, Wound From Enrichment Broth Escherichia coli(A) CHERIE 12/29/2024 9:13 AM EDT [facility] Comment: The organism value for this result has been updated. These results have been appended to the previously preliminary verified report. This is an edited result. Previous organism was Gram negative bacilli on 12/28/2024 at 1019 EDT. Gram Stain Result Rare Polymorphonuclear leukocytes(A) 12/29/2024 9:13 AM EDT [facility] Gram Stain Result No epithelial cells seen(A) 12/29/2024 9:13 AM EDT [facility] Gram Stain Result Many Gram negative bacilli(A) 12/29/2024 9:13 AM EDT [facility] Swab Structure of right lower limb / Unknown Non-blood Collection / Unknown 12/23/2024 12:01 PM EDT 12/23/2024 3:52 PM EDT Narrative Organism Antibiotic Method Susceptibility Proteus mirabilis Amoxicillin/Clavulanate CHERIE <=2 ug/ml: Susceptible Proteus mirabilis Ampicillin/Sulbactam CHERIE <=2 ug/ml: Susceptible Proteus mirabilis Piperacillin/Tazobactam CHERIE <=4 ug/ml: Susceptible Proteus mirabilis Cefazolin (Other) CHERIE 4 ug/ml: Intermediate Proteus mirabilis Cefoxitin CHERIE 8 ug/ml: Susceptible Proteus mirabilis Ceftazidime CHERIE <=0.5 ug/ml: Susceptible Proteus mirabilis Ceftriaxone CHERIE <=0.25 ug/ml: Susceptible Proteus mirabilis Cefepime CHERIE <=0.12 ug/ml: Susceptible Proteus mirabilis Meropenem CHERIE 1 ug/ml: Susceptible Proteus mirabilis Amikacin CHERIE 4 ug/ml: Susceptible Proteus mirabilis Gentamicin CHERIE <=1 ug/ml: Susceptible Proteus mirabilis Ciprofloxacin CHERIE <=0.06 ug/ml: Susceptible Proteus mirabilis Levofloxacin CHERIE <=0.12 ug/ml: Susceptible Proteus mirabilis Trimethoprim/Sulfame thoxa zole CHERIE <=20 ug/ml: Susceptible Pseudomonas aeruginosa Ceftazidime CHERIE 4 ug/ml: Susceptible Pseudomonas aeruginosa Meropenem CHERIE >=16 ug/ml: Resistant Pseudomonas aeruginosa Ciprofloxacin CHERIE 0.5 ug/ml: Susceptible Pseudomonas aeruginosa Levofloxacin CHERIE 2 ug/ml: Intermediate Pseudomonas aeruginosa Cefepime DISK DIFFUSION Susceptible Pseudomonas aeruginosa Piperacillin/Tazobactam DISK DI FFUSION Susceptible Enterococcus faecalis Benzylpenicillin CHERIE 4 ug/ml: Susceptible Enterococcus faecalis Ampicillin CHERIE <=2 ug/ml: Susceptible Enterococcus faecalis Linezolid CHERIE 2 ug/ml: Susceptible Enterococcus faecalis Vancomycin CHERIE 1 ug/ml: Susceptible Escherichia coli Amoxicillin/Clavulanate CHERIE <=2 ug/ml: Susceptible Escherichia coli Ampicillin/Sulbactam CHERIE <=2 ug/ml: Susceptible Escherichia coli Piperacillin/Tazobactam CHERIE <=4 ug/ml: Susceptible Escherichia coli Cefazolin (Other) CHERIE <=1 ug/ml: Susceptible Escherichia coli Cefoxitin CHERIE <=4 ug/ml: Susceptible Escherichia coli Ceftazidime CHERIE <=0.5 ug/ml: Susceptible Escherichia coli Ceftriaxone CHERIE <=0.25 ug/ml: Susceptible Escherichia coli Cefepime CHERIE <=0.12 ug/ml: Susceptible Escherichia coli Meropenem CHERIE <=0.25 ug/ml: Susceptible Escherichia coli Amikacin CHERIE 2 ug/ml: Susceptible Escherichia coli Gentamicin CHERIE <=1 ug/ml: Susceptible Escherichia coli Ciprofloxacin CHERIE <=0.06 ug/ml: Susceptible Escherichia coli Levofloxacin CHERIE <=0.12 ug/ml: Susceptible Escherichia coli Trimethoprim/Sulfame thoxa zole CHERIE <=20 ug/ml: Susceptible Sudheer HOFFMAN LAB MICROBIOLOGY - GENERAL ORDERABLES Final Result [facility] [address] [place] [address], * Debridement Pressure Injury Right;Medial;Distal Foot (12/23/2024 11:30 AM EDT) Curtis Buchanan MD - 12/23/2024 11:30 AM EDT Curtis High MD 01/05/2025 9:29 AM Debridement Pressure Injury Right;Medial;Distal Foot Performed by: DALTON Viera Authorized by: DALTON Viera Associated wounds: Wound Pressure Injury 10/14/24 Foot Right;Medial;Distal Consent: Consent obtained: Verbal Consent given by: Patient Risks discussed: Yes Time out: Immediately prior to the procedure a time out was called Debridement Details: Performed by: DALTON Type: surgical Level: subcutaneous tissue Pain control: Lidocaine 4% Severity of Tissue Pre Debridement: Fat layer exposed Severity of Tissue Post Debridement: Fat layer exposed Length (cm): 5 Width (cm): 2 Depth (cm): 0.3 Area (cm^2): 10 Length (cm): 5 Width (cm): 2 Depth (cm): 0.3 Percent Debrided (%): 75 Surface Area (cm^2): 10 Area Debrided (cm^2): 7.5 Volume (cm^3): 3 Tissue and other material debrided: subcutaneous tissue Devitalized tissue debrided: biofilm and slough Instrument: Curette Amount of bleeding: none Hemostasis obtained with: Not applicable Procedural pain: 0 Post-procedural pain: 0 Response to treatment: Procedure was tolerated well us Sudheer HOFFMAN IN CLINIC/BEDSIDE ORDERABLE S Final Result * Debridement Arterial Ulcer Right;Medial Ankle (12/23/2024 11:30 AM EDT) Crutis Buchanan MD - 12/23/2024 11:30 AM EDT Curtis High MD 01/05/2025 9:29 AM Debridement Arterial Ulcer Right;Medial Ankle Performed by: DALTON Viera Authorized by: DALTON Viera Associated wounds: Wound Arterial Ulcer 09/26/24 Ankle Right;Medial Consent: Consent obtained: Verbal Consent given by: Patient Risks discussed: Yes Time out: Immediately prior to the procedure a time out was called Debridement Details: Performed by: DALTON Type: surgical Level: subcutaneous tissue Pain control: Lidocaine 4% Severity of Tissue Pre Debridement: Fat layer exposed Severity of Tissue Post Debridement: Fat layer exposed Length (cm): 3 Width (cm): 3.2 Depth (cm): 0.2 Area (cm^2): 9.6 Length (cm): 3 Width (cm): 3.2 Depth (cm): 0.2 Percent Debrided (%): 75 Surface Area (cm^2): 9.6 Area Debrided (cm^2): 7.2 Volume (cm^3): 1.92 Tissue and other material debrided: dermis, epidermis and subcutaneous tissue Devitalized tissue debrided: biofilm, necrotic debris and slough Instrument: Curette Amount of bleeding: none Hemostasis obtained with: Not applicable Procedural pain: 0 Post-procedural pain: 0 Response to treatment: Procedure was tolerated well us Sudheer HOFFMAN IN CLINIC/BEDSIDE ORDERABLE S Final Result * Debridement Arterial Ulcer Anterior;Right Foot (12/23/2024 11:30 AM EDT) Curtis Buchanan MD - 12/23/2024 11:30 AM EDT Curtis High MD 01/05/2025 9:29 AM Debridement Arterial Ulcer Anterior;Right Foot Performed by: DALTON Viera Authorized by: DALTON Viera Associated wounds: Wound Arterial Ulcer 09/26/24 Foot Anterior;Right Consent: Consent obtained: Verbal Consent given by: Patient Risks discussed: Yes Time out: Immediately prior to the procedure a time out was called Debridement Details: Performed by: DALTON Type: surgical Level: subcutaneous tissue Pain control: Lidocaine 4% Severity of Tissue Pre Debridement: Fat layer exposed Severity of Tissue Post Debridement: Fat layer exposed Length (cm): 11 Width (cm): 11.5 Depth (cm): 0.3 Area (cm^2): 126.5 Length (cm): 11 Width (cm): 11.5 Depth (cm): 0.3 Percent Debrided (%): 50 Surface Area (cm^2): 126.5 Area Debrided (cm^2): 63.25 Volume (cm^3): 37.95 Tissue and other material debrided: epidermis and subcutaneous tissue Devitalized tissue debrided: biofilm, necrotic debris and slough Instrument: Curette Amount of bleeding: none Hemostasis obtained with: Not applicable Procedural pain: 0 Post-procedural pain: 0 Response to treatment: Procedure was tolerated well us Sudheer HOFFMAN IN CLINIC/BEDSIDE ORDERABLE S Final Result * Debridement Pressure Injury Posterior;Right Heel (12/23/2024 11:30 AM EDT) Curtis Buchanan MD - 12/23/2024 11:30 AM EDT Curtis High MD 01/05/2025 9:29 AM Debridement Pressure Injury Posterior;Right Heel Performed by: DALTON Viera Authorized by: DALTON Viera Associated wounds: Wound Pressure Injury 09/21/24 Heel Posterior;Right Consent: Consent obtained: Verbal Consent given by: Patient Risks discussed: Yes Time out: Immediately prior to the procedure a time out was called Debridement Details: Performed by: DALTON Type: surgical Level: subcutaneous tissue Pain control: Lidocaine 4% Severity of Tissue Pre Debridement: Fat layer exposed Severity of Tissue Post Debridement: Fat layer exposed Length (cm): 2.8 Width (cm): 2 Depth (cm): 0.2 Area (cm^2): 5.6 Length (cm): 2.8 Width (cm): 2 Depth (cm): 0.2 Percent Debrided (%): 75 Surface Area (cm^2): 5.6 Area Debrided (cm^2): 4.2 Volume (cm^3): 1.12 Tissue and other material debrided: dermis, epidermis and subcutaneous tissue Devitalized tissue debrided: biofilm, callus, exudate, fibrin and slough Instrument: Curette Amount of bleeding: none Hemostasis obtained with: Not applicable Procedural pain: 0 Post-procedural pain: 0 Response to treatment: Procedure was tolerated well Sudheer HOFFMAN IN CLINIC/BEDSIDE ORDERABLE S Final Result * Debridement Arterial Ulcer (cluster) Right;Lower Leg (12/23/2024 11:30 AM EDT) Curtis Buchanan MD - 12/23/2024 11:30 AM EDT Curtis High MD 01/05/2025 9:29 AM Debridement Arterial Ulcer (cluster) Right;Lower Leg Performed by: DALTON Viera Authorized by: DALTON Viera Associated wounds: Wound Arterial Ulcer 09/21/24 Leg Right;Lower Consent: Consent obtained: Verbal Consent given by: Patient Risks discussed: Yes Time out: Immediately prior to the procedure a time out was called Debridement Details: Performed by: DALTON Type: surgical Level: subcutaneous tissue Pain control: Lidocaine 4% Severity of Tissue Pre Debridement: Fat layer exposed Severity of Tissue Post Debridement: Fat layer exposed Length (cm): 12 Width (cm): 11 Depth (cm): 0.5 Area (cm^2): 132 Length (cm): 12 Width (cm): 11 Depth (cm): 0.5 Percent Debrided (%): 50 Surface Area (cm^2): 132 Area Debrided (cm^2): 66 Volume (cm^3): 66 Tissue and other material debrided: subcutaneous tissue Devitalized tissue debrided: biofilm, necrotic debris and slough Instrument: Curette Amount of bleeding: none Hemostasis obtained with: Not applicable Procedural pain: 0 Post-procedural pain: 0 Response to treatment: Procedure was tolerated well us Sudheer HOFFMAN IN CLINIC/BEDSIDE ORDERABLE S Final Result * Debridement Pressure Injury Right;Medial;Distal Foot (12/09/2024 12:30 PM EDT) Curtis Buchanan MD - 12/09/2024 12:30 PM EDT DALTON Viera 12/09/2024 1:20 PM Debridement Pressure Injury Right;Medial;Distal Foot Performed by: DALTON Viera Authorized by: DALTON Viera Associated wounds: Wound Pressure Injury 10/14/24 Foot Right;Medial;Distal Consent: Consent obtained: Verbal Consent given by: Patient Risks discussed: Yes Time out: Immediately prior to the procedure a time out was called Debridement Details: Performed by: PA Type: surgical Level: subcutaneous tissue Pain control: Lidocaine 4% Severity of Tissue Pre Debridement: Fat layer exposed Severity of Tissue Post Debridement: Fat layer exposed Time taken: 12/09/2024 12:46 PM Length (cm): 1.7 Width (cm): 1.6 Depth (cm): 0.2 Area (cm^2): 2.72 Time taken: 12/09/2024 12:47 PM Length (cm): 1.7 Width (cm): 1.6 Depth (cm): 0.2 Percent Debrided (%): 100 Surface Area (cm^2): 2.72 Area Debrided (cm^2): 2.72 Volume (cm^3): 0.54 Tissue and other material debrided: dermis, epidermis and subcutaneous tissue Devitalized tissue debrided: biofilm and slough Instrument: Curette Amount of bleeding: none Hemostasis obtained with: Not applicable Procedural pain: 0 Post-procedural pain: 0 Response to treatment: Procedure was tolerated well us Sudheer HOFFMAN IN CLINIC/BEDSIDE ORDERABLE S Final Result * Debridement Arterial Ulcer Right;Medial Ankle (12/09/2024 12:30 PM EDT) Curtis Buchanan MD - 12/09/2024 12:30 PM EDT DALTON Viera 12/09/2024 1:20 PM Debridement Arterial Ulcer Right;Medial Ankle Performed by: DALTON Viera Authorized by: DALTON Viera Associated wounds: Wound Arterial Ulcer 09/26/24 Ankle Right;Medial Consent: Consent obtained: Verbal Consent given by: Patient Risks discussed: Yes Time out: Immediately prior to the procedure a time out was called Debridement Details: Performed by: DALTON Type: surgical Level: subcutaneous tissue Pain control: Lidocaine 4% Severity of Tissue Pre Debridement: Fat layer exposed Severity of Tissue Post Debridement: Fat layer exposed Time taken: 12/09/2024 12:46 PM Length (cm): 2.3 Width (cm): 2.4 Depth (cm): 0.2 Area (cm^2): 5.52 Time taken: 12/09/2024 12:47 PM Length (cm): 2.3 Width (cm): 2.4 Depth (cm): 0.2 Percent Debrided (%): 100 Surface Area (cm^2): 5.52 Area Debrided (cm^2): 5.52 Volume (cm^3): 1.1 Tissue and other material debrided: dermis, epidermis and subcutaneous tissue Devitalized tissue debrided: biofilm and slough Instrument: Curette Amount of bleeding: none Hemostasis obtained with: Not applicable Procedural pain: 0 Post-procedural pain: 0 Response to treatment: Procedure was tolerated well us Sudheer HOFFMAN IN CLINIC/BEDSIDE ORDERABLE S Final Result * Debridement Pressure Injury Posterior;Right Heel (12/09/2024 12:30 PM EDT) Curtis Buchanan MD - 12/09/2024 12:30 PM EDT DALTON Viera 12/09/2024 1:20 PM Debridement Pressure Injury Posterior;Right Heel Performed by: DALTON Viera Authorized by: DALTON Viera Associated wounds: Wound Pressure Injury 09/21/24 Heel Posterior;Right Consent: Consent obtained: Verbal Consent given by: Patient Risks discussed: Yes Time out: Immediately prior to the procedure a time out was called Debridement Details: Performed by: DALTON Type: surgical Level: subcutaneous tissue Pain control: Lidocaine 4% Severity of Tissue Pre Debridement: Fat layer exposed Severity of Tissue Post Debridement: Fat layer exposed Time taken: 12/09/2024 12:50 PM Length (cm): 3 Width (cm): 2.2 Depth (cm): 0.2 Area (cm^2): 6.6 Time taken: 12/09/2024 12:51 PM Length (cm): 3 Width (cm): 2.2 Depth (cm): 0.2 Percent Debrided (%): 100 Surface Area (cm^2): 6.6 Area Debrided (cm^2): 6.6 Volume (cm^3): 1.32 Tissue and other material debrided: dermis, epidermis and subcutaneous tissue Devitalized tissue debrided: biofilm and slough Instrument: Curette Amount of bleeding: none Hemostasis obtained with: Not applicable Procedural pain: 0 Post-procedural pain: 0 Response to treatment: Procedure was tolerated well us Sudheer HOFFMAN IN CLINIC/BEDSIDE ORDERABLE S Final Result * Debridement Arterial Ulcer Anterior;Right Toe D1, Great (12/09/2024 12:30 PM EDT) Narrative Curtis High MD - 12/09/2024 12:30 PM EDT DALTON Viera 12/09/2024 1:20 PM Debridement Arterial Ulcer Anterior;Right Toe D1, Great Performed by: DALTON Viera Authorized by: DALTON Viera Associated wounds: Wound Arterial Ulcer 10/14/24 Toe D1, Great Anterior;Right Consent: Consent obtained: Verbal Consent given by: Patient Risks discussed: Yes Time out: Immediately prior to the procedure a time out was called Debridement Details: Performed by: PA Type: surgical Level: subcutaneous tissue Pain control: Lidocaine 4% Severity of Tissue Pre Debridement: Fat layer exposed Severity of Tissue Post Debridement: Fat layer exposed Time taken: 12/09/2024 12:45 PM Length (cm): 1.1 Width (cm): 1 Depth (cm): 0.1 Area (cm^2): 1.1 Time taken: 12/09/2024 12:46 PM Length (cm): 1.1 Width (cm): 1 Depth (cm): 0.1 Percent Debrided (%): 100 Surface Area (cm^2): 1.1 Area Debrided (cm^2): 1.1 Volume (cm^3): 0.11 Tissue and other material debrided: dermis, epidermis and subcutaneous tissue Devitalized tissue debrided: biofilm and slough Instrument: Curette Amount of bleeding: none Hemostasis obtained with: Not applicable Procedural pain: 0 Post-procedural pain: 0 Response to treatment: Procedure was tolerated well us Sudheer HOFFMAN IN CLINIC/BEDSIDE ORDERABLE S Final Result * Debridement Other (comment) (Infection/ cellulitis ) Anterior;Right Toe D1, Great (12/01/2024 1:00 PM EDT) Narrative Curtis High MD - 12/01/2024 1:00 PM EDT DALTON Viera 12/01/2024 2:08 PM Debridement Other (comment) (Infection/ cellulitis ) Anterior;Right Toe D1, Great Performed by: DALTON Viera Authorized by: DALTON Viera Associated wounds: Wound Other (comment) 10/14/24 Toe D1, Great Anterior;Right Consent: Consent obtained: Verbal Consent given by: Patient Risks discussed: Yes Time out: Immediately prior to the procedure a time out was called Debridement Details: Performed by: DALTON Type: surgical Level: subcutaneous tissue Pain control: Lidocaine 4% Severity of Tissue Pre Debridement: Fat layer exposed Severity of Tissue Post Debridement: Fat layer exposed Time taken: 12/01/2024 1:16 PM Length (cm): 1.2 Width (cm): 0.8 Depth (cm): 0.1 Area (cm^2): 0.96 Time taken: 12/01/2024 1:17 PM Length (cm): 1.2 Width (cm): 0.8 Depth (cm): 0.1 Percent Debrided (%): 100 Surface Area (cm^2): 0.96 Area Debrided (cm^2): 0.96 Volume (cm^3): 0.1 Tissue and other material debrided: dermis, epidermis and subcutaneous tissue Devitalized tissue debrided: biofilm, exudate, fibrin and slough Instrument: Curette Amount of bleeding: none Hemostasis obtained with: Not applicable Procedural pain: 0 Post-procedural pain: 0 Response to treatment: Procedure was tolerated well Sudheer HOFFMAN IN CLINIC/BEDSIDE ORDERABLE S Final Result * Debridement Other (comment) (Infection/ cellulitis) Anterior;Right Toe D2, Second (12/01/2024 1:00 PM EDT) Curtis Buchanan MD - 12/01/2024 1:00 PM EDT DALTON Viera 12/01/2024 2:08 PM Debridement Other (comment) (Infection/ cellulitis) Anterior;Right Toe D2, Second Performed by: DALTON Viera Authorized by: DALTON Viera Associated wounds: Wound Other (comment) 10/14/24 Toe D2, Second Anterior;Right Consent: Consent obtained: Verbal Consent given by: Patient Risks discussed: Yes Time out: Immediately prior to the procedure a time out was called Debridement Details: Performed by: DALTON Type: selective Pain control: Lidocaine 5% Severity of Tissue Pre Debridement: Limited to breakdown of skin Severity of Tissue Post Debridement: Limited to breakdown of skin Time taken: 12/01/2024 1:15 PM Length (cm): 0.1 Width (cm): 0.1 Depth (cm): 0.1 Area (cm^2): 0.01 Time taken: 12/01/2024 1:16 PM Length (cm): 0.1 Width (cm): 0.1 Depth (cm): 0.1 Percent Debrided (%): 100 Surface Area (cm^2): 0.01 Area Debrided (cm^2): 0.01 Volume (cm^3): 0 Tissue and other material debrided: dermis and epidermis Devitalized tissue debrided: exudate and fibrin Instrument: Curette Amount of bleeding: none Hemostasis obtained with: Not applicable Procedural pain: Insensate Post-procedural pain: Insensate Response to treatment: Procedure was tolerated well us Sudheer HOFFMAN IN CLINIC/BEDSIDE ORDERABLE S Final Result * Debridement Pressure Injury Right;Medial;Distal Foot (12/01/2024 1:00 PM EDT) Curtis Buchanan MD - 12/01/2024 1:00 PM EDT DALTON Viera 12/01/2024 2:08 PM Debridement Pressure Injury Right;Medial;Distal Foot Performed by: DALTON Viera Authorized by: DALTON Viera Associated wounds: Wound Pressure Injury 10/14/24 Foot Right;Medial;Distal Consent: Consent obtained: Verbal Consent given by: Patient Risks discussed: Yes Time out: Immediately prior to the procedure a time out was called Debridement Details: Performed by: DALTON Type: surgical Level: subcutaneous tissue Pain control: Lidocaine 4% Severity of Tissue Pre Debridement: Fat layer exposed Severity of Tissue Post Debridement: Fat layer exposed Time taken: 12/01/2024 1:14 PM Length (cm): 1.8 Width (cm): 1.7 Depth (cm): 0.2 Area (cm^2): 3.06 Time taken: 12/01/2024 1:15 PM Length (cm): 1.8 Width (cm): 1.7 Depth (cm): 0.2 Percent Debrided (%): 75 Surface Area (cm^2): 3.06 Area Debrided (cm^2): 2.3 Volume (cm^3): 0.61 Tissue and other material debrided: dermis, epidermis and subcutaneous tissue Devitalized tissue debrided: biofilm, exudate, fibrin and slough Instrument: Curette Amount of bleeding: none Hemostasis obtained with: Not applicable Procedural pain: 0 Post-procedural pain: 0 Response to treatment: Procedure was tolerated well Sudheer HOFFMAN IN CLINIC/BEDSIDE ORDERABLE S Final Result * Debridement Other (comment) (normal saline, 4% lidocaine applied per protocol) Right;Medial Ankle (12/01/2024 1:00 PM EDT) Curtis Buchanan MD - 12/01/2024 1:00 PM EDT DALTON Viera 12/01/2024 2:08 PM Debridement Other (comment) (normal saline, 4% lidocaine applied per protocol) Right;Medial Ankle Performed by: DALTON Viera Authorized by: DALTON Viera Associated wounds: Wound Other (comment) 09/26/24 Ankle Right;Medial Consent: Consent obtained: Verbal Consent given by: Patient Risks discussed: Yes Time out: Immediately prior to the procedure a time out was called Debridement Details: Performed by: DALTON Type: surgical Level: subcutaneous tissue Pain control: Lidocaine 4% Severity of Tissue Pre Debridement: Fat layer exposed Severity of Tissue Post Debridement: Fat layer exposed Time taken: 12/01/2024 1:13 PM Length (cm): 2.3 Width (cm): 2.2 Depth (cm): 0.2 Area (cm^2): 5.06 Time taken: 12/01/2024 1:14 PM Length (cm): 2.3 Width (cm): 2.2 Depth (cm): 0.2 Percent Debrided (%): 75 Surface Area (cm^2): 5.06 Area Debrided (cm^2): 3.8 Volume (cm^3): 1.01 Tissue and other material debrided: dermis, epidermis and subcutaneous tissue Devitalized tissue debrided: biofilm and slough Instrument: Curette Amount of bleeding: none Hemostasis obtained with: Not applicable Procedural pain: 0 Post-procedural pain: 0 Response to treatment: Procedure was tolerated well us Sudheer HOFFMAN IN CLINIC/BEDSIDE ORDERABLE S Final Result * Debridement Other (comment) (Infection) Anterior;Right Foot (12/01/2024 1:00 PM EDT) Curtis Buchanan MD - 12/01/2024 1:00 PM EDT DALTON Viera 12/01/2024 2:08 PM Debridement Other (comment) (Infection) Anterior;Right Foot Performed by: DALTON Viera Authorized by: DALTON Viera Associated wounds: Wound Other (comment) 09/26/24 Foot Anterior;Right Consent: Consent obtained: Verbal Consent given by: Patient Risks discussed: Yes Time out: Immediately prior to the procedure a time out was called Debridement Details: Performed by: DALTON Type: surgical Level: subcutaneous tissue Pain control: Lidocaine 4% Severity of Tissue Pre Debridement: Fat layer exposed Severity of Tissue Post Debridement: Fat layer exposed Time taken: 12/01/2024 1:13 PM Length (cm): 7.4 Width (cm): 3.6 Depth (cm): 0.3 Area (cm^2): 26.64 Time taken: 12/01/2024 1:14 PM Length (cm): 7.4 Width (cm): 3.6 Depth (cm): 0.3 Percent Debrided (%): 50 Surface Area (cm^2): 26.64 Area Debrided (cm^2): 13.32 Volume (cm^3): 7.99 Tissue and other material debrided: dermis, epidermis and subcutaneous tissue Devitalized tissue debrided: biofilm, exudate, fibrin and slough Instrument: Curette Amount of bleeding: none Hemostasis obtained with: Not applicable Procedural pain: 0 Post-procedural pain: 0 Response to treatment: Procedure was tolerated well us Sudheer HOFFMAN IN CLINIC/BEDSIDE ORDERABLE S Final Result * Debridement Pressure Injury Posterior;Right Heel (12/01/2024 1:00 PM EDT) Curtis Buchanan MD - 12/01/2024 1:00 PM EDT DALTON Viera 12/01/2024 2:08 PM Debridement Pressure Injury Posterior;Right Heel Performed by: DALTON Viera Authorized by: DALTON Viera Associated wounds: Wound Pressure Injury 09/21/24 Heel Posterior;Right Consent: Consent obtained: Verbal Consent given by: Patient Risks discussed: Yes Time out: Immediately prior to the procedure a time out was called Debridement Details: Performed by: DALTON Type: surgical Level: subcutaneous tissue Pain control: Lidocaine 4% Severity of Tissue Pre Debridement: Fat layer exposed Severity of Tissue Post Debridement: Fat layer exposed Time taken: 12/01/2024 1:16 PM Length (cm): 3 Width (cm): 2.2 Depth (cm): 0.4 Area (cm^2): 6.6 Time taken: 12/01/2024 1:17 PM Length (cm): 3 Width (cm): 2.2 Depth (cm): 0.4 Percent Debrided (%): 100 Surface Area (cm^2): 6.6 Area Debrided (cm^2): 6.6 Volume (cm^3): 2.64 Tissue and other material debrided: dermis, epidermis and subcutaneous tissue Devitalized tissue debrided: biofilm, necrotic debris and slough Instrument: Curette Amount of bleeding: none Hemostasis obtained with: Not applicable Procedural pain: 0 Post-procedural pain: 0 Response to treatment: Procedure was tolerated well us Sudheer HOFFMAN IN CLINIC/BEDSIDE ORDERABLE S Final Result * Debridement Arterial Ulcer (cluster) Right;Lower Leg (12/01/2024 1:00 PM EDT) Curtis Buchanan MD - 12/01/2024 1:00 PM EDT DALTON Viera 12/01/2024 2:08 PM Debridement Arterial Ulcer (cluster) Right;Lower Leg Performed by: DALTON Viera Authorized by: DALTON Viera Associated wounds: Wound Arterial Ulcer 09/21/24 Leg Right;Lower Consent: Consent obtained: Verbal Consent given by: Patient Risks discussed: Yes Time out: Immediately prior to the procedure a time out was called Debridement Details: Performed by: DALTON Type: surgical Level: subcutaneous tissue Pain control: Lidocaine 4% Severity of Tissue Pre Debridement: Fat layer exposed Severity of Tissue Post Debridement: Fat layer exposed Time taken: 12/01/2024 1:12 PM Length (cm): 11.9 (Cluster of 2) Width (cm): 11.2 Depth (cm): 0.4 Area (cm^2): 133.28 Time taken: 12/01/2024 1:13 PM Length (cm): 11.9 Width (cm): 11.2 Depth (cm): 0.4 Percent Debrided (%): 50 Surface Area (cm^2): 133.28 Area Debrided (cm^2): 66.64 Volume (cm^3): 53.31 Tissue and other material debrided: subcutaneous tissue Devitalized tissue debrided: biofilm and slough Instrument: Curette Amount of bleeding: none Hemostasis obtained with: Not applicable Procedural pain: 0 Post-procedural pain: 0 Response to treatment: Procedure was tolerated well us Sudheer HOFFMAN IN CLINIC/BEDSIDE ORDERABLE S Final Result * Debridement Other (comment) (Infection/ cellulitis) Anterior;Right Toe D2, Second (11/23/2024 1:00 PM EDT) Curtis Buchanan MD - 11/23/2024 1:00 PM EDT DALTON Viera 11/23/2024 1:53 PM Debridement Other (comment) (Infection/ cellulitis) Anterior;Right Toe D2, Second Performed by: DALTON Viera Authorized by: DALTON Viera Associated wounds: Wound Other (comment) 10/14/24 Toe D2, Second Anterior;Right Consent: Consent obtained: Verbal Consent given by: Patient Risks discussed: Yes Time out: Immediately prior to the procedure a time out was called Debridement Details: Performed by: DALTON Type: surgical Level: subcutaneous tissue Pain control: Lidocaine 4% Severity of Tissue Pre Debridement: Fat layer exposed Severity of Tissue Post Debridement: Fat layer exposed Time taken: 11/23/2024 1:17 PM Length (cm): 0.8 Width (cm): 0.8 Depth (cm): 0.1 Area (cm^2): 0.64 Time taken: 11/23/2024 1:18 PM Length (cm): 0.8 Width (cm): 0.8 Depth (cm): 0.1 Percent Debrided (%): 100 Surface Area (cm^2): 0.64 Area Debrided (cm^2): 0.64 Volume (cm^3): 0.06 Tissue and other material debrided: dermis, epidermis and subcutaneous tissue Devitalized tissue debrided: biofilm, exudate, fibrin and slough Instrument: Curette Amount of bleeding: none Hemostasis obtained with: Not applicable Procedural pain: 0 Post-procedural pain: 0 Response to treatment: Procedure was tolerated well Sudheer HOFFMAN IN CLINIC/BEDSIDE ORDERABLE S Final Result * Debridement Other (comment) (Infection/ cellulitis ) Anterior;Right Toe D1, Great (11/23/2024 1:00 PM EDT) Narrative Curtis High MD - 11/23/2024 1:00 PM EDT DALTON Viera 11/23/2024 1:53 PM Debridement Other (comment) (Infection/ cellulitis ) Anterior;Right Toe D1, Great Performed by: DALTON Viera Authorized by: DALTON Viera Associated wounds: Wound Other (comment) 10/14/24 Toe D1, Great Anterior;Right Consent: Consent obtained: Verbal Consent given by: Patient Risks discussed: Yes Time out: Immediately prior to the procedure a time out was called Debridement Details: Performed by: DALTON Type: surgical Level: subcutaneous tissue Pain control: Lidocaine 4% Severity of Tissue Pre Debridement: Fat layer exposed Severity of Tissue Post Debridement: Fat layer exposed Time taken: 11/23/2024 1:17 PM Length (cm): 1 Width (cm): 1 Depth (cm): 0.1 Area (cm^2): 1 Time taken: 11/23/2024 1:18 PM Length (cm): 1 Width (cm): 1 Depth (cm): 0.1 Percent Debrided (%): 100 Surface Area (cm^2): 1 Area Debrided (cm^2): 1 Volume (cm^3): 0.1 Tissue and other material debrided: dermis, epidermis and subcutaneous tissue Devitalized tissue debrided: biofilm, exudate, fibrin and slough Instrument: Curette Amount of bleeding: none Hemostasis obtained with: Not applicable Procedural pain: 0 Post-procedural pain: 0 Response to treatment: Procedure was tolerated well Sudheer HOFFMAN IN CLINIC/BEDSIDE ORDERABLE S Final Result * Debridement Pressure Injury Right;Medial;Distal Foot (11/23/2024 1:00 PM EDT) Narrative Curtis High MD - 11/23/2024 1:00 PM EDT DALTON Viera 11/23/2024 1:53 PM Debridement Pressure Injury Right;Medial;Distal Foot Performed by: DALTON Viera Authorized by: DALTON Viera Associated wounds: Wound Pressure Injury 10/14/24 Foot Right;Medial;Distal Consent: Consent obtained: Verbal Consent given by: Patient Risks discussed: Yes Time out: Immediately prior to the procedure a time out was called Debridement Details: Performed by: DALTON Type: surgical Level: subcutaneous tissue Pain control: Lidocaine 4% Severity of Tissue Pre Debridement: Fat layer exposed Severity of Tissue Post Debridement: Fat layer exposed Time taken: 11/23/2024 1:18 PM Length (cm): 1.7 Width (cm): 1.7 Depth (cm): 0.2 Area (cm^2): 2.89 Time taken: 11/23/2024 1:19 PM Length (cm): 1.7 Width (cm): 1.7 Depth (cm): 0.2 Percent Debrided (%): 75 Surface Area (cm^2): 2.89 Area Debrided (cm^2): 2.17 Volume (cm^3): 0.58 Tissue and other material debrided: dermis, epidermis and subcutaneous tissue Devitalized tissue debrided: biofilm and slough Instrument: Curette Amount of bleeding: none Hemostasis obtained with: Not applicable Procedural pain: 0 Post-procedural pain: 0 Response to treatment: Procedure was tolerated well us Sudheer HOFFMAN IN CLINIC/BEDSIDE ORDERABLE S Final Result * Debridement Other (comment) (normal saline, 4% lidocaine applied per protocol) Right;Medial Ankle (11/23/2024 1:00 PM EDT) Curtis Buchanan MD - 11/23/2024 1:00 PM EDT DALTON Viera 11/23/2024 1:53 PM Debridement Other (comment) (normal saline, 4% lidocaine applied per protocol) Right;Medial Ankle Performed by: DALTON Viera Authorized by: DALTON Viera Associated wounds: Wound Other (comment) 09/26/24 Ankle Right;Medial Consent: Consent obtained: Verbal Consent given by: Patient Risks discussed: Yes Time out: Immediately prior to the procedure a time out was called Debridement Details: Performed by: DALTON Type: surgical Level: subcutaneous tissue Pain control: Lidocaine 4% Severity of Tissue Pre Debridement: Fat layer exposed Severity of Tissue Post Debridement: Fat layer exposed Time taken: 11/23/2024 1:18 PM Length (cm): 2.5 Width (cm): 2.5 Depth (cm): 0.2 Area (cm^2): 6.25 Time taken: 11/23/2024 1:19 PM Length (cm): 2.5 Width (cm): 2.5 Depth (cm): 0.2 Percent Debrided (%): 75 Surface Area (cm^2): 6.25 Area Debrided (cm^2): 4.69 Volume (cm^3): 1.25 Tissue and other material debrided: dermis, epidermis and subcutaneous tissue Devitalized tissue debrided: biofilm and slough Instrument: Curette Amount of bleeding: none Hemostasis obtained with: Not applicable Procedural pain: 0 Post-procedural pain: 0 Response to treatment: Procedure was tolerated well us Sudheer HOFFMAN IN CLINIC/BEDSIDE ORDERABLE S Final Result * Debridement Other (comment) (Infection) Anterior;Right Foot (11/23/2024 1:00 PM EDT) Curtis Buchanan MD - 11/23/2024 1:00 PM EDT DALTON Viera 11/23/2024 1:53 PM Debridement Other (comment) (Infection) Anterior;Right Foot Performed by: DALTON Viera Authorized by: DALTON Viera Associated wounds: Wound Other (comment) 09/26/24 Foot Anterior;Right Consent: Consent obtained: Verbal Consent given by: Patient Risks discussed: Yes Time out: Immediately prior to the procedure a time out was called Debridement Details: Performed by: DALTON Type: surgical Level: subcutaneous tissue Pain control: Lidocaine 4% Severity of Tissue Pre Debridement: Fat layer exposed Severity of Tissue Post Debridement: Fat layer exposed Time taken: 11/23/2024 1:19 PM Length (cm): 7 Width (cm): 5.8 Depth (cm): 0.3 Area (cm^2): 40.6 Time taken: 11/23/2024 1:20 PM Length (cm): 7 Width (cm): 5.8 Depth (cm): 0.3 Percent Debrided (%): 50 Surface Area (cm^2): 40.6 Area Debrided (cm^2): 20.3 Volume (cm^3): 12.18 Tissue and other material debrided: dermis, epidermis and subcutaneous tissue Devitalized tissue debrided: biofilm and slough Instrument: Curette Amount of bleeding: none Hemostasis obtained with: Not applicable Procedural pain: 0 Post-procedural pain: 0 Response to treatment: Procedure was tolerated well us Sudheer HOFFMAN IN CLINIC/BEDSIDE ORDERABLE S Final Result * Debridement Pressure Injury Posterior;Right Heel (11/23/2024 1:00 PM EDT) Curtis Buchanan MD - 11/23/2024 1:00 PM EDT DALTON Viera 11/23/2024 1:53 PM Debridement Pressure Injury Posterior;Right Heel Performed by: DALTON Viera Authorized by: DALTON Viera Associated wounds: Wound Pressure Injury 09/21/24 Heel Posterior;Right Consent: Consent obtained: Verbal Consent given by: Patient Risks discussed: Yes Time out: Immediately prior to the procedure a time out was called Debridement Details: Performed by: DALTON Type: surgical Level: subcutaneous tissue Pain control: Lidocaine 4% Severity of Tissue Pre Debridement: Fat layer exposed Severity of Tissue Post Debridement: Fat layer exposed Time taken: 11/23/2024 1:22 PM Length (cm): 3 Width (cm): 2.5 Depth (cm): 0.3 Area (cm^2): 7.5 Time taken: 11/23/2024 1:23 PM Length (cm): 3 Width (cm): 2.5 Depth (cm): 0.3 Percent Debrided (%): 75 Surface Area (cm^2): 7.5 Area Debrided (cm^2): 5.63 Volume (cm^3): 2.25 Tissue and other material debrided: dermis, epidermis and subcutaneous tissue Devitalized tissue debrided: biofilm and slough Instrument: Curette Amount of bleeding: none Hemostasis obtained with: Not applicable Procedural pain: 0 Post-procedural pain: 0 Response to treatment: Procedure was tolerated well us Sudheer HOFFMAN IN CLINIC/BEDSIDE ORDERABLE S Final Result * Debridement Other (comment) (Infection/ cellulitis) Anterior;Right Toe D2, Second (11/17/2024 12:30PM EDT) Narrative Curtis High MD - 11/17/2024 12:30 PM EDT DALTON Viera 11/17/2024 1:54 PM Debridement Other (comment) (Infection/ cellulitis) Anterior;Right Toe D2, Second Performed by: DALTON Viera Authorized by: DALTON Viera Associated wounds: Wound Other (comment) 10/14/24 Toe D2, Second Anterior;Right Consent: Consent obtained: Verbal Consent given by: Patient Risks discussed: Yes Time out: Immediately prior to the procedure a time out was called Debridement Details: Performed by: PA Type: surgical Level: subcutaneous tissue Pain control: Lidocaine 4% Severity of Tissue Pre Debridement: Fat layer exposed Severity of Tissue Post Debridement: Fat layer exposed Time taken: 11/17/2024 1:06 PM Length (cm): 1.2 Width (cm): 1 Depth (cm): 0.1 Area (cm^2): 1.2 Time taken: 11/17/2024 1:07 PM Length (cm): 1.2 Width (cm): 1 Depth (cm): 0.1 Percent Debrided (%): 100 Surface Area (cm^2): 1.2 Area Debrided (cm^2): 1.2 Volume (cm^3): 0.12 Tissue and other material debrided: dermis, epidermis and subcutaneous tissue Devitalized tissue debrided: biofilm, necrotic debris and slough Instrument: Curette Amount of bleeding: none Hemostasis obtained with: Not applicable Procedural pain: 0 Post-procedural pain: 0 Response to treatment: Procedure was tolerated well Sudheer HOFFMAN IN CLINIC/BEDSIDE ORDERABLE S Final Result * Debridement Other (comment) (Infection/ cellulitis ) Anterior;Right Toe D1, Great (11/17/2024 12:30PM EDT) Narrative Curtis High MD - 11/17/2024 12:30 PM EDT DALTON Viera 11/17/2024 1:54 PM Debridement Other (comment) (Infection/ cellulitis ) Anterior;Right Toe D1, Great Performed by: DALTON Viera Authorized by: DALTON Veira Associated wounds: Wound Other (comment) 10/14/24 Toe D1, Great Anterior;Right Consent: Consent obtained: Verbal Consent given by: Patient Risks discussed: Yes Time out: Immediately prior to the procedure a time out was called Debridement Details: Performed by: DALTON Type: surgical Level: subcutaneous tissue Pain control: Lidocaine 4% Severity of Tissue Pre Debridement: Fat layer exposed Severity of Tissue Post Debridement: Fat layer exposed Time taken: 11/17/2024 1:07 PM Length (cm): 1.3 Width (cm): 0.9 Depth (cm): 0.1 Area (cm^2): 1.17 Time taken: 11/17/2024 1:08 PM Length (cm): 1.3 Width (cm): 0.9 Depth (cm): 0.1 Percent Debrided (%): 100 Surface Area (cm^2): 1.17 Area Debrided (cm^2): 1.17 Volume (cm^3): 0.12 Tissue and other material debrided: dermis, epidermis and subcutaneous tissue Devitalized tissue debrided: biofilm, necrotic debris and slough Instrument: Curette Amount of bleeding: none Hemostasis obtained with: Not applicable Procedural pain: 0 Post-procedural pain: 0 Response to treatment: Procedure was tolerated well us Sudheer HOFFMAN IN CLINIC/BEDSIDE ORDERABLE S Final Result * Debridement Pressure Injury Right;Medial;Distal Foot (11/17/2024 12:30 PM EDT) Curtis Buchanan MD - 11/17/2024 12:30 PM EDT DALTON Viera 11/17/2024 1:54 PM Debridement Pressure Injury Right;Medial;Distal Foot Performed by: DALTON Viera Authorized by: ADLTON Viera Associated wounds: Wound Pressure Injury 10/14/24 Foot Right;Medial;Distal Consent: Consent obtained: Verbal Consent given by: Patient Risks discussed: Yes Time out: Immediately prior to the procedure a time out was called Debridement Details: Performed by: DALTON Type: surgical Level: subcutaneous tissue Pain control: Lidocaine 4% Severity of Tissue Pre Debridement: Fat layer exposed Severity of Tissue Post Debridement: Fat layer exposed Time taken: 11/17/2024 1:07 PM Length (cm): 1.8 Width (cm): 1.7 Depth (cm): 0.2 Area (cm^2): 3.06 Time taken: 11/17/2024 1:08 PM Length (cm): 1.8 Width (cm): 1.7 Depth (cm): 0.2 Percent Debrided (%): 75 Surface Area (cm^2): 3.06 Area Debrided (cm^2): 2.3 Volume (cm^3): 0.61 Tissue and other material debrided: dermis, epidermis and subcutaneous tissue Devitalized tissue debrided: biofilm and slough Instrument: Curette Amount of bleeding: none Hemostasis obtained with: Not applicable Procedural pain: 0 Post-procedural pain: 0 Response to treatment: Procedure was tolerated well us Sudheer HOFFMAN IN CLINIC/BEDSIDE ORDERABLE S Final Result * Debridement Other (comment) (normal saline, 4% lidocaine applied per protocol) Right;Medial Ankle (11/17/2024 12:30 PM EDT) Curtis Buchanan MD - 11/17/2024 12:30 PM EDT DALTON Viera 11/17/2024 1:54 PM Debridement Other (comment) (normal saline, 4% lidocaine applied per protocol) Right;Medial Ankle Performed by: DALTON Viera Authorized by: DALTON Viera Associated wounds: Wound Other (comment) 09/26/24 Ankle Right;Medial Consent: Consent obtained: Verbal Consent given by: Patient Risks discussed: Yes Time out: Immediately prior to the procedure a time out was called Debridement Details: Performed by: DALTON Type: surgical Level: subcutaneous tissue Pain control: Lidocaine 4% Severity of Tissue Pre Debridement: Fat layer exposed Severity of Tissue Post Debridement: Fat layer exposed Time taken: 11/17/2024 1:08 PM Length (cm): 2.3 Width (cm): 2.4 Depth (cm): 0.1 Area (cm^2): 5.52 Time taken: 11/17/2024 1:09 PM Length (cm): 2.3 Width (cm): 2.4 Depth (cm): 0.1 Percent Debrided (%): 75 Surface Area (cm^2): 5.52 Area Debrided (cm^2): 4.14 Volume (cm^3): 0.55 Tissue and other material debrided: dermis, epidermis and subcutaneous tissue Devitalized tissue debrided: biofilm and slough Instrument: Curette Amount of bleeding: none Hemostasis obtained with: Not applicable Procedural pain: 0 Post-procedural pain: 0 Response to treatment: Procedure was tolerated well us Sudheer HOFFMAN IN CLINIC/BEDSIDE ORDERABLE S Final Result * Debridement Other (comment) (Infection) Anterior;Right Foot (11/17/2024 12:30 PM EDT) Narrative Curtis High MD - 11/17/2024 12:30 PM EDT DALTON Viera 11/17/2024 1:54 PM Debridement Other (comment) (Infection) Anterior;Right Foot Performed by: DALTON Viera Authorized by: DALTON Viera Associated wounds: Wound Other (comment) 09/26/24 Foot Anterior;Right Consent: Consent obtained: Verbal Consent given by: Patient Risks discussed: Yes Time out: Immediately prior to the procedure a time out was called Debridement Details: Performed by: DALTON Type: surgical Level: subcutaneous tissue Pain control: Lidocaine 4% Severity of Tissue Pre Debridement: Fat layer exposed Severity of Tissue Post Debridement: Fat layer exposed Time taken: 11/17/2024 1:09 PM Length (cm): 7.8 Width (cm): 6 Depth (cm): 0.3 Area (cm^2): 46.8 Time taken: 11/17/2024 1:10 PM Length (cm): 7.8 Width (cm): 6 Depth (cm): 0.3 Percent Debrided (%): 50 Surface Area (cm^2): 46.8 Area Debrided (cm^2): 23.4 Volume (cm^3): 14.04 Tissue and other material debrided: dermis, epidermis and subcutaneous tissue Devitalized tissue debrided: biofilm and slough Instrument: Curette Amount of bleeding: none Hemostasis obtained with: Not applicable Procedural pain: 0 Post-procedural pain: 0 Response to treatment: Procedure was tolerated well us Sudheer HOFFMAN IN CLINIC/BEDSIDE ORDERABLE S Final Result * Debridement Pressure Injury Posterior;Right Heel (11/17/2024 12:30 PM EDT) Curtis Buchanan MD - 11/17/2024 12:30 PM EDT DALTON Viera 11/17/2024 1:54 PM Debridement Pressure Injury Posterior;Right Heel Performed by: DALTON Viera Authorized by: DALTON Viera Associated wounds: Wound Pressure Injury 09/21/24 Heel Posterior;Right Consent: Consent obtained: Verbal Consent given by: Patient Risks discussed: Yes Time out: Immediately prior to the procedure a time out was called Debridement Details: Performed by: DALTON Type: surgical Level: subcutaneous tissue Pain control: Lidocaine 4% Severity of Tissue Pre Debridement: Fat layer exposed Severity of Tissue Post Debridement: Fat layer exposed Time taken: 11/17/2024 1:09 PM Length (cm): 3.6 Width (cm): 2.4 Depth (cm): 0.4 Area (cm^2): 8.64 Time taken: 11/17/2024 1:10 PM Length (cm): 3.6 Width (cm): 2.4 Depth (cm): 0.1 Percent Debrided (%): 75 Surface Area (cm^2): 8.64 Area Debrided (cm^2): 6.48 Volume (cm^3): 0.86 Tissue and other material debrided: dermis, epidermis and subcutaneous tissue Devitalized tissue debrided: biofilm, necrotic debris and slough Instrument: Curette Amount of bleeding: none Hemostasis obtained with: Not applicable Procedural pain: 0 Post-procedural pain: 0 Response to treatment: Procedure was tolerated well us Sudheer HOFFMAN IN CLINIC/BEDSIDE ORDERABLE S Final Result * Debridement Arterial Ulcer (cluster) Right;Lower Leg (11/17/2024 12:30 PM EDT) Curtis Buchanan MD - 11/17/2024 12:30 PM EDT DALTON Viera 11/17/2024 1:54 PM Debridement Arterial Ulcer (cluster) Right;Lower Leg Performed by: DALTON Viera Authorized by: DALTON Viera Associated wounds: Wound Arterial Ulcer 09/21/24 Leg Right;Lower Consent: Consent obtained: Verbal Consent given by: Patient Risks discussed: Yes Time out: Immediately prior to the procedure a time out was called Debridement Details: Performed by: DALTON Type: surgical Level: subcutaneous tissue Pain control: Lidocaine 4% Severity of Tissue Pre Debridement: Fat layer exposed Severity of Tissue Post Debridement: Fat layer exposed Time taken: 11/17/2024 1:05 PM Length (cm): 12 (Cluster of 2) Width (cm): 10.5 Depth (cm): 0.3 Area (cm^2): 126 Time taken: 11/17/2024 1:06 PM Length (cm): 12 Width (cm): 10.5 Depth (cm): 0.3 Percent Debrided (%): 50 Surface Area (cm^2): 126 Area Debrided (cm^2): 63 Volume (cm^3): 37.8 Tissue and other material debrided: dermis, epidermis and subcutaneous tissue Devitalized tissue debrided: biofilm, exudate, fibrin and slough Instrument: Curette Amount of bleeding: none Hemostasis obtained with: Not applicable Procedural pain: 0 Post-procedural pain: 0 Response to treatment: Procedure was tolerated well us Sudheer HOFFMAN IN CLINIC/BEDSIDE ORDERABLE S Final Result * Debridement Other (comment) (Infection/ cellulitis) Anterior;Right Toe D2, Second (11/09/2024 12:30PM EDT) Curtis Buchanan MD - 11/09/2024 12:30 PM EDT DALTON Viera 11/09/2024 1:57 PM Debridement Other (comment) (Infection/ cellulitis) Anterior;Right Toe D2, Second Performed by: DALOTN Viera Authorized by: DALTON Viera Associated wounds: Wound Other (comment) 10/14/24 Toe D2, Second Anterior;Right Consent: Consent obtained: Verbal Consent given by: Patient Risks discussed: Yes Time out: Immediately prior to the procedure a time out was called Debridement Details: Performed by: DALTON Type: surgical Level: subcutaneous tissue Pain control: Lidocaine 4% Severity of Tissue Pre Debridement: Fat layer exposed Severity of Tissue Post Debridement: Fat layer exposed Time taken: 11/09/2024 12:44 PM Length (cm): 1.5 Width (cm): 1.5 Depth (cm): 0.1 Area (cm^2): 2.25 Time taken: 11/09/2024 12:45 PM Length (cm): 1.5 Width (cm): 1.5 Depth (cm): 0.1 Percent Debrided (%): 75 Surface Area (cm^2): 2.25 Area Debrided (cm^2): 1.69 Volume (cm^3): 0.23 Tissue and other material debrided: dermis, epidermis and subcutaneous tissue Devitalized tissue debrided: biofilm, exudate, fibrin and slough Instrument: Curette Amount of bleeding: none Hemostasis obtained with: Not applicable Procedural pain: 0 Post-procedural pain: 0 Response to treatment: Procedure was tolerated well Sudheer HOFFMAN IN CLINIC/BEDSIDE ORDERABLE S Final Result * Debridement Other (comment) (Infection/ cellulitis ) Anterior;Right Toe D1, Great (11/09/2024 12:30PM EDT) Narrative Curtis High MD - 11/09/2024 12:30 PM EDT DALTON Viera 11/09/2024 1:57 PM Debridement Other (comment) (Infection/ cellulitis ) Anterior;Right Toe D1, Great Performed by: DALTON Viera Authorized by: DALTON Viera Associated wounds: Wound Other (comment) 10/14/24 Toe D1, Great Anterior;Right Consent: Consent obtained: Verbal Consent given by: Patient Risks discussed: Yes Time out: Immediately prior to the procedure a time out was called Debridement Details: Performed by: DALTON Type: surgical Level: subcutaneous tissue Pain control: Lidocaine 4% Severity of Tissue Pre Debridement: Fat layer exposed Severity of Tissue Post Debridement: Fat layer exposed Time taken: 11/09/2024 12:44 PM Length (cm): 2 Width (cm): 1.6 Depth (cm): 0.1 Area (cm^2): 3.2 Time taken: 11/09/2024 12:45 PM Length (cm): 2 Width (cm): 1.6 Depth (cm): 0.1 Percent Debrided (%): 75 Surface Area (cm^2): 3.2 Area Debrided (cm^2): 2.4 Volume (cm^3): 0.32 Tissue and other material debrided: dermis, epidermis and subcutaneous tissue Devitalized tissue debrided: biofilm, exudate, fibrin and slough Instrument: Curette Amount of bleeding: none Hemostasis obtained with: Not applicable Procedural pain: 0 Post-procedural pain: 0 Response to treatment: Procedure was tolerated well Sudheer HOFFMAN IN CLINIC/BEDSIDE ORDERABLE S Final Result * Debridement Pressure Injury Right;Medial;Distal Foot (11/09/2024 12:30 PM EDT) Curtis Buchanan MD - 11/09/2024 12:30 PM EDT DALTON Viera 11/09/2024 1:57 PM Debridement Pressure Injury Right;Medial;Distal Foot Performed by: DALTON Viera Authorized by: DALTON Viera Associated wounds: Wound Pressure Injury 10/14/24 Foot Right;Medial;Distal Consent: Consent obtained: Verbal Consent given by: Patient Risks discussed: Yes Time out: Immediately prior to the procedure a time out was called Debridement Details: Performed by: DALTON Type: surgical Level: subcutaneous tissue Pain control: Lidocaine 4% Severity of Tissue Pre Debridement: Fat layer exposed Severity of Tissue Post Debridement: Fat layer exposed Time taken: 11/09/2024 12:42 PM Length (cm): 1.7 Width (cm): 1.9 Depth (cm): 0.1 Area (cm^2): 3.23 Time taken: 11/09/2024 12:43 PM Length (cm): 1.7 Width (cm): 1.9 Depth (cm): 0.1 Percent Debrided (%): 75 Surface Area (cm^2): 3.23 Area Debrided (cm^2): 2.42 Volume (cm^3): 0.32 Tissue and other material debrided: dermis, epidermis and subcutaneous tissue Devitalized tissue debrided: biofilm and slough Instrument: Curette Amount of bleeding: none Hemostasis obtained with: Not applicable Procedural pain: 0 Post-procedural pain: 0 Response to treatment: Procedure was tolerated well Sudheer HOFFMAN IN CLINIC/BEDSIDE ORDERABLE S Final Result * Debridement Other (comment) (normal saline, 4% lidocaine applied per protocol) Right;Medial Ankle (11/09/2024 12:30 PM EDT) Narrative Curtis High MD - 11/09/2024 12:30 PM EDT DALTON Viera 11/09/2024 1:57 PM Debridement Other (comment) (normal saline, 4% lidocaine applied per protocol) Right;Medial Ankle Performed by: DALTON Viera Authorized by: DALTON Viera Associated wounds: Wound Other (comment) 09/26/24 Ankle Right;Medial Consent: Consent obtained: Verbal Consent given by: Patient Risks discussed: Yes Time out: Immediately prior to the procedure a time out was called Debridement Details: Performed by: DALTON Type: surgical Level: subcutaneous tissue Pain control: Lidocaine 4% Severity of Tissue Pre Debridement: Fat layer exposed Severity of Tissue Post Debridement: Fat layer exposed Time taken: 11/09/2024 12:41 PM Length (cm): 1.9 Width (cm): 2.4 Depth (cm): 0.1 Area (cm^2): 4.56 Time taken: 11/09/2024 12:42 PM Length (cm): 1.9 Width (cm): 2.4 Depth (cm): 0.1 Percent Debrided (%): 75 Surface Area (cm^2): 4.56 Area Debrided (cm^2): 3.42 Volume (cm^3): 0.46 Tissue and other material debrided: dermis, epidermis and subcutaneous tissue Devitalized tissue debrided: biofilm and slough Instrument: Curette Amount of bleeding: none Hemostasis obtained with: Not applicable Procedural pain: 0 Post-procedural pain: 0 Response to treatment: Procedure was tolerated well us Sudheer HOFFMAN IN CLINIC/BEDSIDE ORDERABLE S Final Result * Debridement Pressure Injury Posterior;Right Heel (11/09/2024 12:30 PM EDT) Curtis Buchanan MD - 11/09/2024 12:30 PM EDT DALTON Viera 11/09/2024 1:57 PM Debridement Pressure Injury Posterior;Right Heel Performed by: DALTON Viera Authorized by: DALTON Viera Associated wounds: Wound Pressure Injury 09/21/24 Heel Posterior;Right Consent: Consent obtained: Verbal Consent given by: Patient Risks discussed: Yes Time out: Immediately prior to the procedure a time out was called Debridement Details: Performed by: DALTON Type: surgical Level: subcutaneous tissue Pain control: Lidocaine 4% Severity of Tissue Pre Debridement: Fat layer exposed Severity of Tissue Post Debridement: Fat layer exposed Time taken: 11/09/2024 12:45 PM Length (cm): 2.9 Width (cm): 2 Depth (cm): 0.2 Area (cm^2): 5.8 Time taken: 11/09/2024 12:46 PM Length (cm): 2.9 Width (cm): 2 Depth (cm): 0.2 Percent Debrided (%): 75 Surface Area (cm^2): 5.8 Area Debrided (cm^2): 4.35 Volume (cm^3): 1.16 Tissue and other material debrided: dermis, epidermis and subcutaneous tissue Devitalized tissue debrided: biofilm and slough Instrument: Curette Amount of bleeding: none Hemostasis obtained with: Not applicable Procedural pain: 0 Post-procedural pain: 0 Response to treatment: Procedure was tolerated well us Sudheer HOFFMAN IN CLINIC/BEDSIDE ORDERABLE S Final Result * Debridement Arterial Ulcer (cluster) Right;Lower Leg (11/09/2024 12:30 PM EDT) Curtis Buchanan MD - 11/09/2024 12:30 PM EDT DALTON Viera 11/09/2024 1:57 PM Debridement Arterial Ulcer (cluster) Right;Lower Leg Performed by: DALTON Viera Authorized by: DALTON Viera Associated wounds: Wound Arterial Ulcer 09/21/24 Leg Right;Lower Consent: Consent obtained: Verbal Consent given by: Patient Risks discussed: Yes Time out: Immediately prior to the procedure a time out was called Debridement Details: Performed by: DATLON Type: surgical Level: subcutaneous tissue Pain control: Lidocaine 4% Severity of Tissue Pre Debridement: Fat layer exposed Severity of Tissue Post Debridement: Fat layer exposed Time taken: 11/09/2024 12:40 PM Length (cm): 13 (Cluster of 3) Width (cm): 10.8 Depth (cm): 0.1 Area (cm^2): 140.4 Time taken: 11/09/2024 12:41 PM Length (cm): 13 Width (cm): 10.8 Depth (cm): 0.1 Percent Debrided (%): 50 Surface Area (cm^2): 140.4 Area Debrided (cm^2): 70.2 Volume (cm^3): 14.04 Tissue and other material debrided: dermis, epidermis and subcutaneous tissue Devitalized tissue debrided: biofilm, exudate, fibrin and slough Instrument: Curette Amount of bleeding: none Hemostasis obtained with: Not applicable Procedural pain: 0 Post-procedural pain: 0 Response to treatment: Procedure was tolerated well us Sudheer HOFFMAN IN CLINIC/BEDSIDE ORDERABLE S Final Result from Last 3 Months Additional Health Concerns Active Problems Noted Date Diagnosed Date Impaired Tissue 09/21/2024 Education needed on impact of smoking on wound 0 09/21/2024 Education needed related to ulceration/compromised skin integrity. 09/21/2024 Infection Onset Date Last Indicated ESBL 09/21/2024 09/21/2024 MDRO (other) 12/23/2024 12/23/2024 Insurance MEDICARE [facility] Advance Directives Documents on File Type Date Recorded Patient Veterans Services Specialist Expl anation Advance Directives and Living Will 09/30/2024 3:34 PM PROXY Advance Directives and Living Will 09/28/2024 3:36 PM Blanca Usama [facility] Proxy * No CPR/Intubation OK (Latest Code Status on File) Date Activated Date Inactivated Comments 09/30/2024 3:21 AM 09/30/2024 4:30 PM This code stat us was ascertained in the following way: Code status discussion: per living will or healthcare instructions To update the patient's code status, place a code status order. Do not modify or discontinue any currently active code status orders. * No CPR/Do Not Intubate Date Activated Date Inactivated Comments 09/22/2024 12:24 AM 09/29/2024 7:[address] atus was ascertained in the following way: Code status discussion: discussion with patient To update the patient's code status, place a code status order. Do not modify or discontinue any currently active code status orders. * Full Code - Default Date Activated Date Inactivated Comments 09/21/2024 10:07 PM 09/22/2024 12:24 AM This is or santa is used when code status has not been discussed with the patient, or code status is otherwise unknown/unconfirmed To update the patient's code status, place a code status order. Do not modify or discontinue any currently active code status orders. Healthcare Agents on File Name Relationship Healthcare Agent Relationshi p Communication Blanca Mendes First Alternate Health Care Agent Rajeev Ribeiro Second Alternate Health Care Agent Care Teams Roll Tension Tester Relationship Specialty Start Date End Date Fitz Espinoza PA [address] [place] [address] PCP - General Primary Care 09/21/24
--- OUTSIDE RECORDS SUMMARY | 2025-02-03 00:28 | XMS_ITS | Encounter Summary ---
Author Organization [facility] Address [address] [place] [address] Phone Care Team Providers Care Automobile Painter Name Role Phone Pcp, Unknown Primary Care Provider Unavailabl e Encounter Details Date Type Department Care Team (Late st Contact Info) Description 02/02/2025 Telephone [facility] Vascular Surgery [address], 4th Floor, [address] [place] [address] Kamilah Tay MD [address] [place] [address] [email or web address] Social History Tobacco Use Types Packs/Day Years [...] is your housing situation today? I have zitalizandro foster 07/02/2024 How many times have you move [...] AM EDT documented as of this encounter Progress Notes * Ginger Duke - 02/02/2025 3:46 PM EST duplicate documented in this encounter Plan of Treatment Upcoming Encounters Date Type Department Care Team (Late st Contact Info) Description 02/07/2025 1:00 PM EST Appointment [facility] Vascular Ultrasound Diagnostic Laboratory [address] [place] [address], 9th Floor, [address] [place] [address] Kamilah Tay MD [address] [place] [id number] [email or web address] 02/07/2025 2:15 PM EST Office Visit [facility] Vascular Surgery [address] [place] [address], 4th Floor, [address] [place] [address] Kamilah Tay MD [address] [facility] [address] [place] [address] [email or web address] documented as of this encounter Visit Diagnoses Not on filedocumented in this encounter Care Teams Automobile Painter Relationship Specialty Start Date End Date Pcp, Unknown PCP - General 06/23/24 documented as of this encounter Additional Source Comments The information contained in this document represents components of the legal health record. It is not the complete legal health record.[facility]
--- OUTSIDE RECORDS SUMMARY | 2025-02-03 00:28 | XMS_ITS | Encounter Summary ---
Author Organization [facility] Address [address] [place] [phone] Phone Care Team Providers Care President Financial Institution Name Role Phone Pcp, Unknown Primary Care Provider Unavailabl e Encounter Details Date Type Department Care Team ([facility] st Contact Info) Description 06/30/2024 Procedure Pass [facility] PERIOPER[facility]IVE DEPT [address] [place] [id number] Social History Tobacco Use Types Packs/Day Years [...] Info) Description 02/07/2025 1:00 PM EST Appointment [facility] Vascular Ultrasound Diagnostic Laboratory [address] [place] [address], 9th Floor, [address] [place] [address] Kamilah Tay MD [address] [place] [id number] [email or web address] 02/07/2025 2:15 PM EST Office Visit [facility] Vascular Surgery [address] [place] [address], 4th Floor, [address] [place] [address] Kamilah Tay MD [address] [place] [id number] [email or web address] documented as of this encounter Visit Diagnoses Not on filedocumented in this encounter Additional Health Concerns Infection Onset Date Last Indicated Resolved Time CDiff-Risk 07/12/2024 07/12/2024 07/12/2024 6:15 PM EDT CoV-Risk Comment:Per note documentation 07/12/2024 07/12/2024 1:16 PM EDT documented as of this encounter Care Teams President Financial Institution Relationship Specialty Start Date End Date Pcp, Unknown PCP - General 06/23/24 documented as of this encounter Additional Source Comments The information contained in this document represents components of the legal health record. It is not the complete legal health record.[facility]
--- OUTSIDE RECORDS SUMMARY | 2025-02-03 00:29 | XMS_ITS | Clinical Summary ---
Author Organization [facility] Address [address] [place], [place] [id number] Phone Care Team Providers Care Bottoming Machine Operator Name Role Phone Pcp, Unknown Primary Care Provider Unavailabl e Allergies Active Allergy Reactions Criticality Noted Date Comments Codeine Hallucinations,Nausea And Vomiting High 0 12/10/2006 Meperidine Hcl Hallucinations High 12/10/2006 Penicillins Hives,Swelling 12/10/2006 Medications acetaminophen (TYLENOL) 325 mg tablet Take 2 tablets (650 mg total) by mouth every 6 (six) hours. 5 Active albuterol 90 mcg/actuation inhaler Inhale 2 puffs into the lungs every 6 (six) hours as needed for wheezing. 5 Active ascorbic acid, vitamin C, (VITAMIN C) 500 MG tablet Take 1 tablet (500 mg total) by mouth 2 (two) times a day. 5 Active aspirin 81 mg chewable tablet Take 1 tablet (81 mg total) by mouth daily. 5 Active bacitracin 500 unit/gram ointment Apply 1 Application topically daily. 5 Active clopidogrel (PLAVIX) 75 mg tablet Take 1 tablet (75 mg total) by mouth daily. 5 Active enoxaparin (LOVENOX) 40 mg/0.4 mL Syrg subcutaneous syringe Inject 0.4 mL (40 mg total) under the skin daily. 5 Active gabapentin (NEURONTIN) 300 MG capsule Take 3 capsules (900 mg total) by mouth every 8 (eight) hours. 5 Active HYDROmorphone (DILAUDID) 2 MG tablet Take 1-2 tablets (2-4 mg total) by mouth every 6 (six) hours as needed for pain (specific location in comments). Partial fill ok Active ipratropium-albu teroL (DUONEB) 0.5-3 mg (2.5 mg base)/3 mL nebulizer solution Take 3 mL by nebulization once for 1 dose. Active lidocaine 4 % Place 2 patches onto the skin daily. Active omeprazole (PRILOSEC) 20 MG capsule Take 2 capsules (40 mg total) by mouth 2 (two) times a day. Active sodium chloride 0.9 % nebulizer solution Take 3 mL by nebulization 3 (three) times a day. Active Active Problems Problem Noted Date Diagnosed Date Cellulitis 06/23/2024 Wound infection 06/23/2024 Encounters Date Type Department Care Team Description 02/02/2025 Telephone [facility] [address] [facility], 4th Floor, [address] [place] [address] Kamilah Tay MD 02/02/2025 Telephone [facility] [address] [facility] [facility], 4th Floor, [address] [place] [address] Kamilah Tay MD from Last 3 Months Social History Tobacco Use Types Packs/Day Years [...] Orientation Straight 07/08/2024 8: 34 AM EDT Last Filed Vital Signs Vital Sign Reading Time Taken Comments Blood Pressure 137/54 08/23/2024 11:57 AM EDT Pulse 82 08/23/2024 11:57 AM EDT Temperature 37.4 C (99.3 F) 07/22/2024 11:50 AM EDT Respiratory Rate 18 07/22/2024 11:50 AM EDT Oxygen Saturation 96% 07/22/2024 11:50 AM EDT Inhaled Oxygen Concentration - - Weight 64.6 kg (142 lb 6.7 oz) 06/27/2024 7:00 A M EDT Height 152.4 cm (5') 06/24/2024 12:30 AM EDT Body Mass Index 27.81 06/24/2024 12:30 AM EDT Plan of Treatment Upcoming Encounters Date Type Department Care Team (Late st Contact Info) Description 02/07/2025 1:00 PM EST Appointment [facility] [address] [facility], 9th Floor, [address] [place] [address] Kamilah Tay MD [address] [place] [address] [address] [place] [address] [email or web address] 02/07/2025 2:15 PM EST Office Visit [facility] [address] [facility], 4th Floor, [address] [place] [address] Kamilah Tay MD [address] [place] [address] [address] [place] [address] [email or web address] Health Maintenance Due Date Last Done Comments Adult Td,Tdap Booster 1945 DEPRESSION SCREENING 1957 SMOKING Hx and SMOKELESS TOBACCO SCREENING 1958 HEPATITIS C SCREENING 11/25/1963 PNEUMOCOCCAL VACCINES (50+ years) (1 of 2 - PCV) 1964 ZOSTER VACCINES (1 of 2) 11/25/1995 OSTEOPOROSIS SCREENING INITI AL (ONE-TIME) 2010 RSV VACCINE (1 - 1-dose 75+ series) 2020 INFLUENZA VACCINE (#1) 2024 COVID-19 VACCINE (4 - 2024-2 6 season) 2024 04/10/2021, 06/20/2020, 05/23/2020 LIPID PANEL 07/05/2025 07/05/2024, 07/04/2024 HEPATITIS A VACCINES Aged Out No long er eligible based on patient's age to complete this topic HIB VACCINES Aged Out No longer eligi ble based on patient's age to complete this topic IPV VACCINES Aged Out No longer eligi ble based on patient's age to complete this topic MENINGOCOCCAL VACCINES (ACWY) Aged Out No longer eligible based on patient's age to complete this topic MENINGOCOCCAL VACCINES (B) Aged Out N o longer eligible based on patient's age to complete this topic Medical Devices Implanted Type Area Jigsaw Operator Device Identifier Shelf Expiration Date Model / Serial / Lot Kerec[employer] Omega3 Graftguide Fish Skin For Wound Management 7 X 20cm Implanted:Qty: 1 on 06/30/2024 by Papito Blas MD at [facility] Right: Leg 06/11/2025 [id number] / / [id number] Procedures Procedure Name Priority Date/Time Associated Diagnosis Comments LIPID PANEL Routine 07/05/2024 3:10 AM EDT from Last 3 Months or Most Recently Relevant to Health Maintenance Results * (ABNORMAL) Lipid panel (07/05/2024 3:10 AM EDT) HDL 58 35 - 100 mg/dL [facility] CHOLESTEROL 109 <200 mg/dL [facility] TRIGLYCERIDES 67 40 - 150 mg/dL [facility] LDL 38(L) 50 - 129 mg/dL [facility] CARDIAC RISK RATIO 1.9 0.0 - 5.0 [facility] NON-HDL CHOLESTEROL 51 mg/dL [facility] Comment:Guidelines suggest a non-HDL cholesterol goal 30 mg/dL higher than the patient-specific LDL goal. Blood 07/05/2024 3:10 AM EDT 07/05/2024 4:09 AM EDT us Josefina Harris CONTROL EQUIPMENT ELECTRICIAN LAB BLOOD BKR ORDERABLES Final Result [address] [address] from Last 3 Months or Most Recently Relevant to Health Maintenance Insurance MEDICARE PART A & B [facility] MEDICARE PART A & B [facility] MEDICARE PART A & B MEDICARE PART A & B MEDICARE PART A & B MEDICARE PART A & B MEDICARE PART A & B MEDICARE PART A & B [facility] MEDICARE PART A & B [facility] Advance Directives For more information, please contact: [phone] (9AM - 5PM [facility], Thursday-Thursday) Documents on File Type Date Recorded Patient Application Integration Engineer Expl anation Healthcare Proxy 07/25/2024 5:01 PM * DNR OK to Intubate (Latest Code Status on File) Date Activated Date Inactivated Comments 07/15/2024 8:00 AM Question Answer Comments Code Status Confirmed With: Other (specify below ) Code Status Communicated To: Other (specify belo w) Code Discussion Comments: Reversion to preoperat joy code status * Periop Full Code Date Activated Date Inactivated Comments 07/14/2024 5:41 PM 07/15/2024 8:00 AM Question Answer Comments Code Status Communicated To: Other (specify belo w) Code Discussion Comments: Marlyn-op Adjustment * DNR OK to Intubate Date Activated Date Inactivated Comments 07/12/2024 7:32 AM 07/14/2024 5:41 PM Question Answer Comments Code Status Confirmed With: Other (specify below ) Code Status Communicated To: Other (specify belo w) Code Discussion Comments: Reversion to preoperat joy code status * Periop Full Code Date Activated Date Inactivated Comments 07/08/2024 11:08 AM 07/12/2024 7:32 AM Question Answer Comments Code Status Communicated To: Other (specify belo w) Code Discussion Comments: Marlyn-op Adjustment * DNR OK to Intubate Date Activated Date Inactivated Comments 07/05/2024 9:15 AM 07/08/2024 11:08 AM Question Answer Comments Code Status Confirmed With: Other (specify below ) Code Status Communicated To: Other (specify belo w) Code Discussion Comments: Reversion to preoperat joy code status Care Teams Bottoming Machine Operator Relationship Specialty Start Date End Date Pcp, Unknown PCP - General 06/23/24 Additional Source Comments The information contained in this document represents components of the legal health record. It is not the complete legal health record.[facility]
--- OUTSIDE RECORDS SUMMARY | 2025-02-03 00:29 | XMS_ITS | Encounter Summary ---
Author Organization [facility] Address [address] [place] [address] Care Team Providers Care Athletic Agent Name Role Phone Alexis, Fitz HOFFMAN Primary Care Provider [phone] Encounter Details Date Type Department Care Team ([facility] Contact Info) Description 10/05/2024 Lab Requisition [facility] - Main Lab [address] [facility] [place] [address] Cora Vargas MD [address] [place] [address] 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 difficile, recurrent Social [...] 02/03/2025 2:45 PM EST Clinical Support [facility] [address] [place] [address] documented as of this encounter [...] Associated Diagnosis Comments COMPLETE BLOOD COUNT Routine 10/06/2024 5:07 AM EDT 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 difficile, recurrent BASIC METABOLIC PANEL Routine 10/06/2024 5:07 AM EDT 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 difficile, recurrent documented in this encounter Results * (ABNORMAL) Basic metabolic panel (10/06/2024 5:07 AM EDT) Sodium 134 133 - 145 mmol/L LAB CHEMISTRY METHOD 10/06/2024 11:37 AM EDT [facility] Potassium 4.5 3.5 - 5.5 mmol/L LAB CHEMISTRY METHOD 10/06/2024 11:37 AM [facility] Chloride 96 96 - 110 mmol/L LAB CHEMISTRY METHOD 10/06/2024 11:37 AM [facility] CO2 31 21 - 32 mmol/L LAB CHEMISTRY METHOD 10/06/2024 11:37 AM [facility] Anion Gap 7 3 - 11 LAB CHEMISTRY METHOD 10/06/2024 11:37 AM [facility] Glucose 69(L) 70 - 100 mg/dL LAB CHEMISTRY METHOD 10/06/2024 11:37 AM [facility] BUN 14 5 - 25 mg/dL LAB CHEMISTRY METHOD 10/06/2024 11:37 AM [facility] Creatinine 0.41(L) 0.50 - 1.10 mg/dL LAB CHEMISTRY METHOD 10/06/2024 11:37 AM [facility] eGFR 101 >=60 mL/min/1. 73m2 LAB CHEMISTRY METHOD 10/06/2024 11:37 AM [facility] Comment:Calculation based on the Chronic Kidney Disease Epidemiology Collaboration (CKD-EPI) equation refit without adjustment for race. BUN/Creatinine Ratio 34.1 LAB CHEMISTRY METHOD 10/06/2024 11:37 AM [facility] Calcium 8.2(L) 8.5 - 10.5 mg/dL LAB CHEMISTRY METHOD 10/06/2024 11:37 AM [facility] Blood Venous blood specimen / Unknown Venipuncture / Unknown 10/06/2024 5:07 AM EDT 10/06/2024 10:04 AM EDT us Cora Vargas MD LAB BLOOD ORDERABLES Final Resul t [facility] [address] [place] [address], * (ABNORMAL) Complete blood count (10/06/2024 5:07 AM EDT) [facility] WBC 14.1(H) 4.8 - 10.8 K/mcL LAB HEMETOLOGY METHOD 10/06/2024 10:20 AM [facility] RBC 4.00 3.80 - 4.80 M/mcL LAB HEMETOLOGY METHOD 10/06/2024 10:20 AM [facility] Hemoglobin 8.7(L) 11.5 - 16.0 g/dL LAB HEMETOLOGY METHOD 10/06/2024 10:20 AM [facility] Hematocrit 30.1(L) 35.0 - 47.0 % LAB HEMETOLOGY METHOD 10/06/2024 10:20 AM [facility] MCV 75.6(L) 79.0 - 98.0 FL LAB HEMETOLOGY METHOD 10/06/2024 10:20 AM [facility] MCH 21.9(L) 27.0 - 32.0 pcg LAB HEMETOLOGY METHOD 10/06/2024 10:20 AM [facility] MCHC 28.9(L) 32.0 - 37.0 g/dL LAB HEMETOLOGY METHOD 10/06/2024 10:20 AM [facility] RDW 20.1(H) 11.0 - 15.0 % LAB HEMETOLOGY METHOD 10/06/2024 10:20 AM [facility] Platelets 432(H) 130 - 400 K/mcL LAB HEMETOLOGY METHOD 10/06/2024 10:20 AM [facility] MPV 10.0 7.0 - 11.0 FL LAB HEMETOLOGY METHOD 10/06/2024 10:20 AM [facility] NRBC 0.0 <1.0 % LAB HEMETOLOGY METHOD 10/06/2024 10:20 AM [facility] NRBC Absolute 0.00 <0.10 K/mcL LAB HEMETOLOGY METHOD 10/06/2024 10:20 AM EDT [facility] Blood Venous blood specimen / Unknown Venipuncture / Unknown 10/06/2024 5:07 AM EDT 10/06/2024 10:04 AM EDT us Cora Vargas MD LAB BLOOD ORDERABLES Final Resul t [facility] [address] [place] [address], documented in this encounter Visit Diagnoses Diagnosis [...] documented as of this encounter Care Teams Athletic Agent Relationship Specialty Start Date End Date Fitz Espinoza PA [address] [place] [id number] PCP - General Primary Care 09/21/24 documented as of this encounter
--- OUTSIDE RECORDS SUMMARY | 2025-02-03 00:29 | XMS_ITS | Encounter Summary ---
Author Organization [facility] Address [address] [place] [address] Care Team Providers Care Welder Assembler Name Role Phone Alexis, Fitz HOFFMAN Primary Care Provider [phone] Encounter Details Date Type Department Care Team (Late Contact Info) Description 10/01/2024 Lab Requisition [facility] - Main Lab [address] [facility] [place] [address] Cora Vargas MD [address] [facility] [address] [place] [address] Sepsis, unspecified organism (CMS/[facility] V24, CMS/[facility] V28) Social History Tobacco Use Types Packs/Day [...] Support [facility] [address] [place] [address] documented as of this encounter [...] Tissue On track( 025 1:49 PM EDT) aMry Alice Cavanaugh RN Wound volume breakdown reduced [...] Procedure Name Priority Date/Time Associated Diagnosis Comments VANCOMYCIN, TROUGH Routine 10/01/2024 4: 48 AM EDT Sepsis, unspecified organism (CMS/[facility] V24, [facility] V28) documented in this encounter Results * (ABNORMAL) Vancomycin, trough (10/01/2024 4:48 AM EDT) Vancomycin Trough 29.7(H) 10.0 - 20.0 mcg/mL LAB CHEMISTRY METHOD 10/01/2024 1:03 PM EDT [facility] Blood Venous blood specimen / Unknown Venipuncture / Unknown 10/01/2024 4:48 AM EDT 10/01/2024 12:53 PM EDT us Cora Vargas MD LAB BLOOD ORDERABLES Final Resul t [facility] [address] [place] [address], documented in this encounter Visit Diagnoses Diagnosis Sepsis, unspecified organism (CMS/[facility] V24, CMS/HCC V28) documented in this encounter [...] documented as of this encounter Care Teams Welder Assembler Relationship Specialty Start Date End Date Fizt Espinoza PA [address] [place] [id number] PCP - General Primary Care 09/21/24 documented as of this encounter
--- OUTSIDE RECORDS SUMMARY | 2025-02-03 00:29 | XMS_ITS | Encounter Summary ---
Author Organization [facility] Address [address] [place] [address] Care Team Providers Care Supervisor Scenic Arts Name Role Phone Alexis, Fitz HOFFMAN Primary Care Provider Encounter Details Date Type Department Care Team ([facility] Contact Info) Description 10/03/2024 Lab Requisition [facility] - Main Lab [address] [facility] [place] [address] Cora Vargas MD [address] [place] [address] Hypothyroidism, unspecified; Vitamin D deficiency, unspecified; Sepsis, unspecified organism (CMS/[facility] V24, CMS/[facility] V28); 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 difficile, recurrent Social [...] Upcoming Encounters Date Type Department Care Team ([facility] Contact Info) Description 02/03/2025 2:45 PM EST Clinical Support [facility] [address] [place] [address] documented as of this encounter [...] Procedure Name Priority Date/Time Associated Diagnosis Comments VITAMIN D 25 HYDROXY Routine 10/03/2024 5:02 AM EDT Hypothyroidism, unspecified Vitamin D deficiency, unspecified Sepsis, unspecified organism (CMS/HCC V24, CMS/[facility] V28) 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 difficile, recurrent COMPLETE BLOOD COUNT Routine 10/03/2024 5:02 AM EDT Hypothyroidism, unspecified Vitamin D deficiency, unspecified Sepsis, unspecified organism (CMS/HCC V24, CMS/HCC V28) 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 difficile, recurrent THYROID STIMULATING HORMONE Routine 10/03/2024 5:02 AM EDT Hypothyroidism, unspecified Vitamin D deficiency, unspecified Sepsis, unspecified organism ([facility] V24, [facility] V28) 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 difficile, recurrent MAGNESIUM Routine 10/03/2024 5:02 AM EDT Hypothyroidism, unspecified Vitamin D deficiency, unspecified Sepsis, unspecified organism ([facility] V24, [facility] V28) 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 difficile, recurrent FOLATE Routine 10/03/2024 5:02 AM EDT Hypothyroidism, unspecified Vitamin D deficiency, unspecified Sepsis, unspecified organism ([facility] V24, [facility] V28) 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 difficile, recurrent VITAMIN B12 Routine 10/03/2024 5:02 AM EDT Hypothyroidism, unspecified Vitamin D deficiency, unspecified Sepsis, unspecified organism ([facility] V24, [facility] V28) 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 difficile, recurrent VANCOMYCIN, TROUGH Routine 10/03/2024 5: 02 AM EDT Hypothyroidism, unspecified Vitamin D deficiency, unspecified Sepsis, unspecified organism ([facility] V24, CMS/[facility] V28) 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 difficile, recurrent COMPREHENSIVE METABOLIC PANEL Routine 10/03/2024 5:02 AM EDT Hypothyroidism, unspecified Vitamin D deficiency, unspecified Sepsis, unspecified organism ([facility] V24, [facility] V28) 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 difficile, recurrent documented in this encounter Results * (ABNORMAL) Vancomycin, trough (10/03/2024 5:02 AM EDT) Vancomycin Trough 23.3(H) 10.0 - 20.0 mcg/mL LAB CHEMISTRY METHOD 10/03/2024 9:33 AM EDT [facility] Blood Venous blood specimen / Unknown Venipuncture / Unknown 10/03/2024 5:02 AM EDT 10/03/2024 8:42 AM EDT us Cora Vargas MD LAB BLOOD ORDERABLES Final Resul t Performing Organization Address City/[facility]/ZIP Co de Phone Number [facility] [address] [place] [address], [place] [phone] * Vitamin B12 (10/03/2024 5:02 AM EDT) Pathologist [facility] Vitamin B-12 594 250 - 900 pcg/mL LAB CHEMISTRY METHOD 10/03/2024 9:53 AM EDT [facility] Blood Venous blood specimen / Unknown Venipuncture / Unknown 10/03/2024 5:02 AM EDT 10/03/2024 8:42 AM EDT us Cora Vargas MD LAB BLOOD ORDERABLES Final Resul t Performing Organization Address [place]/[facility] Co de Phone Number [facility] [address] [place] [address], [place] [phone] * Folate (10/03/2024 5:02 AM EDT) Pathologist [facility] Folate 9.2 2.8 - 17.0 ng/ml LAB CHEMISTRY METHOD 10/03/2024 9:41 AM EDT [facility] Blood Venous blood specimen / Unknown Venipuncture / Unknown 10/03/2024 5:02 AM EDT 10/03/2024 8:42 AM EDT us Cora Vargas MD LAB BLOOD ORDERABLES Final Resul t Performing Organization Address [place]/[facility]/ZIP Co de Phone Number [facility] [address] [place] [address], [place] [phone] * (ABNORMAL) Vitamin D 25 hydroxy (10/03/2024 5:02 AM EDT) Pathologist [facility] Vit D, 25-Hydroxy 12.0(L) 30.0 - 80.0 ng/mL LAB CHEMISTRY METHOD 10/03/2024 11:30 AM EDT [facility] Blood Venous blood specimen / Unknown Venipuncture / Unknown 10/03/2024 5:02 AM EDT 10/03/2024 8:42 AM EDT us Cora Vargas MD LAB BLOOD ORDERABLES Final Resul t Performing Organization Address City/[facility]/ZIP Co de Phone Number [facility] [address] [place] [address], [place] [phone] * Magnesium (10/03/2024 5:02 AM EDT) Magnesium 1.9 1.9 - 2.6 mg/dL LAB CHEMISTRY METHOD 10/03/2024 9:29 AM EDT [facility] Blood Venous blood specimen / Unknown Venipuncture / Unknown 10/03/2024 5:02 AM EDT 10/03/2024 8:42 AM EDT us Cora Vargas MD LAB BLOOD ORDERABLES Final Resul t Performing Organization Address [place]/[facility] Co de Phone Number [facility] [address] [place] [address], [place] [phone] * Thyroid stimulating hormone (10/03/2024 5:02 AM EDT) TSH 2.22 0.40 - 4.00 mcIU/mL LAB CHEMISTRY METHOD 10/03/2024 11:30 AM EDT [facility] Blood Venous blood specimen / Unknown Venipuncture / Unknown 10/03/2024 5:02 AM EDT 10/03/2024 8:42 AM EDT us Cora Vargas MD LAB BLOOD ORDERABLES Final Resul t Performing Organization Address City/[facility]/ZIP Co de Phone Number [facility] [address] [place] [address], [place] [phone] * (ABNORMAL) Comprehensive metabolic panel (10/03/2024 5:02 AM EDT) [facility] Signature Sodium 140 133 - 145 mmol/L LAB CHEMISTRY METHOD 10/03/2024 10:11 AM [facility] Potassium 2.7(LL) 3.5 - 5.5 mmol/L LAB CHEMISTRY METHOD 10/03/2024 10:11 AM [facility] LAB Chloride 104 96 - 110 mmol/L LAB CHEMISTRY METHOD 10/03/2024 10:11 AM [facility] CO2 31 21 - 32 mmol/L LAB CHEMISTRY METHOD 10/03/2024 10:11 AM [facility] Anion Gap 5 3 - 11 LAB CHEMISTRY METHOD 10/03/2024 10:11 AM [facility] LAB Glucose 71 70 - 100 mg/dL LAB CHEMISTRY METHOD 10/03/2024 10:11 AM [facility] BUN 14 5 - 25 mg/dL LAB CHEMISTRY METHOD 10/03/2024 10:11 AM [facility] LAB Creatinine 0.49(L) 0.50 - 1.10 mg/dL LAB CHEMISTRY METHOD 10/03/2024 10:11 AM [facility] LAB eGFR 97 >=60 mL/min/1. 73m2 LAB CHEMISTRY METHOD 10/03/2024 10:11 AM [facility] LAB Comment:Calculation based on the Chronic Kidney Disease Epidemiology Collaboration (CKD-EPI) equation refit without adjustment for race. BUN/Creatinine Ratio 28.6 LAB CHEMISTRY METHOD 10/03/2024 10:11 AM [facility] LAB Calcium 7.9(L) 8.5 - 10.5 mg/dL LAB CHEMISTRY METHOD 10/03/2024 10:11 AM [facility] AST (SGOT) 19 10 - 42 unit/L LAB CHEMISTRY METHOD 10/03/2024 10:11 [facility] ALT (SGPT) 15 10 - 60 unit/L LAB CHEMISTRY METHOD 10/03/2024 10:11 AM [facility] Alkaline Phosphatase 86 42 - 121 unit/L LAB CHEMISTRY METHOD 10/03/2024 10:11 AM [facility] Total Protein 4.5(L) 6.0 - 8.0 g/dL LAB CHEMISTRY METHOD 10/03/2024 10:11 AM [facility] Albumin 1.9(L) 3.2 - 5.0 g/dL LAB CHEMISTRY METHOD 10/03/2024 10:11 AM [facility] LAB Total Bilirubin 0.2 0.0 - 1.4 mg/dL LAB CHEMISTRY METHOD 10/03/2024 10:11 AM [facility] LAB Blood Venous blood specimen / Unknown Venipuncture / Unknown 10/03/2024 5:02 AM EDT 10/03/2024 8:42 AM EDT us Cora Vargas MD LAB BLOOD ORDERABLES Final Resul t [facility] [address] [place] [address], [place] [phone] * (ABNORMAL) Complete blood count (10/03/2024 5:02 AM EDT) WBC 9.0 4.8 - 10.8 K/mcL LAB HEMETOLOGY METHOD 10/03/2024 9:03 AM EDT [facility] RBC 4.40 3.80 - 4.80 M/mcL LAB HEMETOLOGY METHOD 10/03/2024 9:03 AM [facility] LAB Hemoglobin 9.2(L) 11.5 - 16.0 g/dL LAB HEMETOLOGY METHOD 10/03/2024 9:03 AM EDT [facility] Hematocrit 33.4(L) 35.0 - 47.0 % LAB HEMETOLOGY METHOD 10/03/2024 9:03 AM EDT [facility] MCV 76.6(L) 79.0 - 98.0 FL LAB HEMETOLOGY METHOD 10/03/2024 9:03 AM EDT [facility] MCH 21.1(L) 27.0 - 32.0 pcg LAB HEMETOLOGY METHOD 10/03/2024 9:03 AM EDT [facility] MCHC 27.5(L) 32.0 - 37.0 g/dL LAB HEMETOLOGY METHOD 10/03/2024 9:03 AM EDT [facility] RDW 19.9(H) 11.0 - 15.0 % LAB HEMETOLOGY METHOD 10/03/2024 9:03 AM EDT [facility] Platelets 439(H) 130 - 400 K/mcL LAB HEMETOLOGY METHOD 10/03/2024 9:03 AM EDT [facility] MPV 10.6 7.0 - 11.0 FL LAB HEMETOLOGY METHOD 10/03/2024 9:03 AM EDT [facility] NRBC 0.0 <1.0 % LAB HEMETOLOGY METHOD 10/03/2024 9:03 AM EDT [facility] NRBC Absolute 0.00 <0.10 K/mcL LAB HEMETOLOGY METHOD 10/03/2024 9:03 AM EDT [facility] Blood Venous blood specimen / Unknown Venipuncture / Unknown 10/03/2024 5:02 AM EDT 10/03/2024 8:42 AM EDT us Cora Vargas MD LAB BLOOD ORDERABLES Final Resul t [facility] [address] [place] [address], documented in this encounter Visit Diagnoses Diagnosis Hypothyroidism, unspecified Vitamin D deficiency, unspecified Sepsis, unspecified organism ([facility] V24, [facility] V28) 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 difficile, recurrent documented [...] documented as of this encounter Care Teams Supervisor Scenic Arts Relationship Specialty Start Date End Date Fitz Espinoza PA [address] [place] [address] PCP - General Primary Care 09/21/24 documented as of this encounter
--- OUTSIDE RECORDS SUMMARY | 2025-02-03 00:29 | XMS_ITS | Encounter Summary ---
Author Organization [facility] Address [address] [place] [address] Phone Care Team Providers Care Resource Program Teacher Name Role Phone Pcp, Unknown Primary Care Provider Unavailabl e Encounter Details Date Type Department Care Team (Late st Contact Info) Description 02/02/2025 Telephone [facility] [place] [address], 4th [address], [address] [place] [address] Kamilah Tay MD [address] [facility] [address] [place] [address] [email or web address] Social History Tobacco Use Types Packs/Day Years [...] Progress Notes * Ginger Duke - 02/02/2025 3:19 PM EST Called and left voicemail for patient letting her know that Dr. Tay is not in the office next week and we will need to reschedule her appointments. documented in this encounter Plan of Treatment Upcoming Encounters Date Type Department Care Team (Late st Contact Info) Description 02/07/2025 1:00 PM EST Appointment [facility] [place] Diagnostic Laboratory [address] [place] [address], 9th Floor, [address] [place] [address] Kamilah Tay MD [address] [place] [id number] [email or web address] 02/07/2025 2:15 PM EST Office Visit [facility] Surgery [address] [place] [address], 4th Floor, [address] [place] [address] Kamilah Tay MD [address] [place] [id number] [email or web address] documented as of this encounter Visit Diagnoses Not on filedocumented in this encounter Care Teams Resource Program Teacher Relationship Specialty Start Date End Date Pcp, Unknown PCP - General 06/23/24 documented as of this encounter Additional Source Comments The information contained in this document represents components of the legal health record. It is not the complete legal health record.[facility]
--- OUTSIDE RECORDS SUMMARY | 2025-02-03 00:29 | XMS_ITS | Encounter Summary ---
Author Organization [facility] Address [address] [place] [address] Care Team Providers Care Field Crew Chief Name Role Phone Fitz Espinoza Primary Care Provider [phone] Encounter Details Date Type Department Care Team (Late Contact Info) Description 10/02/2024 Lab Requisition [facility] - Main Lab [address] [facility] [place] [address] Marcelle Uriarte PA [address] [facility] [address] [facility] [place] [place] [address] 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 difficile, not specified [...] 02/03/2025 2:45 PM EST Clinical Support [facility] [address] [place] [address] documented as of this encounter [...] Date/Time Associated Diagnosis Comments VANCOMYCIN, TROUGH Routine 10/02/2024 8: 46 AM EDT 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 difficile, not specified as recurrent BASIC METABOLIC PANEL Routine 10/02/2024 8:46 AM EDT 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 difficile, not specified as recurrent documented in this encounter Results * Vancomycin, trough (10/02/2024 8:46 AM EDT) Vancomycin Trough 12.4 10.0 - 20.0 mcg/mL LAB CHEMISTRY METHOD 10/02/2024 11:10 AM EDT [facility] Blood Venous blood specimen / Unknown Venipuncture / Unknown 10/02/2024 8:46 AM EDT 10/02/2024 10:09 AM EDT us Marcelle HOFFMAN LAB BLOOD ORDERABLES Final Resu lt [facility] [address] [place] [address], [place] [phone] * (ABNORMAL) Basic metabolic panel (10/02/2024 8:46 AM EDT) Sodium 138 133 - 145 mmol/L LAB CHEMISTRY METHOD 10/02/2024 11:10 AM [facility] LAB Potassium 3.5 3.5 - 5.5 mmol/L LAB CHEMISTRY METHOD 10/02/2024 11:10 AM [facility] LAB Chloride 104 96 - 110 mmol/L LAB CHEMISTRY METHOD 10/02/2024 11:10 AM [facility] CO2 28 21 - 32 mmol/L LAB CHEMISTRY METHOD 10/02/2024 11:10 AM [facility] Anion Gap 6 3 - 11 LAB CHEMISTRY METHOD 10/02/2024 11:10 AM [facility] Glucose 84 70 - 100 mg/dL LAB CHEMISTRY METHOD 10/02/2024 11:10 AM [facility] BUN 12 5 - 25 mg/dL LAB CHEMISTRY METHOD 10/02/2024 11:10 AM [facility] Creatinine 0.36(L) 0.50 - 1.10 mg/dL LAB CHEMISTRY METHOD 10/02/2024 11:10 AM [facility] LAB eGFR 104 >=60 mL/min/1. 73m2 LAB CHEMISTRY METHOD 10/02/2024 11:10 AM [facility] LAB Comment:Calculation based on the Chronic Kidney Disease Epidemiology Collaboration (CKD-EPI) equation refit without adjustment for race. BUN/Creatinine Ratio 33.3 LAB CHEMISTRY METHOD 10/02/2024 11:[address] [facility] Calcium 8.5 8.5 - 10.5 mg/dL LAB CHEMISTRY METHOD 10/02/2024 11:[address] [facility] Blood Venous blood specimen / Unknown Venipuncture / Unknown 10/02/2024 8:46 AM EDT 10/02/2024 10:09 AM EDT us Marcelle HOFFMAN LAB BLOOD ORDERABLES Final Resu lt [facility] [address] [place] [address], documented in this encounter Visit Diagnoses Diagnosis [...] documented as of this encounter Care Teams Field Crew Chief Relationship Specialty Start Date End Date Fitz Espinoza PA [address] [place] [id number] PCP - General Primary Care 09/21/24 documented as of this encounter
--- NOTE | 2025-02-03 01:07 | PC.NURSE ---
Wound to right lower leg wrapped, bleeding controlled.
[2025-02-03 01:08] VITALS: BP 112/65; PULSE 101; RESP 18; TEMP 36.8; O2SAT 99
== END 2025-02-03 01:10 | disposition home or self-care (01) ==
PROVIDERS: Emergency Provider Emergency Medicine
DX: L02.415 Cutaneous abscess of right lower limb (principal); R42 Dizziness and giddiness; F17.210 Nicotine dependence, cigarettes, uncomplicated; Z48.00 Encounter for change or removal of nonsurgical wound dressing; Z79.899 Other long term (current) drug therapy
CPT/HCPCS: 36415; 85025; 99283